=== PATIENT | male | born 1940 | race Caucasian/White ===

== ENCOUNTER → 2016-09-11 | Outpatient (CLI) | payer MEDICARE ==
[~2016-09-11] MED LIST: REGADENOSON INJ 0.4 MG/5 ML DISP.SYRIN IV ONE
--- NOTE | 2016-09-11 19:12 | DRAGON STRESS TEST REPORT ---
Intravenous Lexiscan Cardiolite stress test using single photon emmision computerized tomography. Date of procedure: 09/11/2016 Ordering Provider: Dr. MR. Staci Rust. Primary Care Provider: Miss Tea Gu Indication: Coronary Artery Disease.. Coronary risk factors: Age, diabetes mellitus, hypertension, and dyslipidemia. Resting EKG: Sinus Rhythm. Right bundle branch block pattern. Stress EKG: No changes of ischemia. The patient had no chest pain or discomfort, and there were no arrhythmias seen. Reason for termination: Protocol. Conclusions: Normal EKG and hemodynamic response to IV Lexiscan. Nuclear data: At rest the patient was given 14.87 millicuries of technetium 99m sestamibi injected intravenously. As per protocol rest non gated SPECT images were obtained. Subsequently the patient was given intravenous Lexiscan at a dose of 0.4 mg in 5 mL intravenously, followed by flush with normal saline. Subsequently the stress dose of 44.5 millicuries of technetium 99m sestamibi was injected intravenously. As per protocol stress gated images were obtained. Nuclear interpretation: Review of images showed that there is a mild perfusion defect in the stress images which normalizes in the rest images. This inferior wall has normal motion contraction and thickening by gated study. There is a small area of perfusion defect in both the stress and the rest images involving a small portion of the distal postero-lateral wall. This small area has decreased motion contraction and thickening. The rest of the segments of the myocardium had normal perfusion at rest, and normal perfusion post stress with IV Lexiscan. The rest of the segments of the myocardium had normal motion, contraction, and thickening by gated study. T. I D. ratio was read as abnormal at 1.25 . But this is usually not reliable and visually the T I D ratio is within normal limits Computer read rest, and stress left ventricular ejection fraction were 63 %, and 55 %, respectively. Visually both the stress and rest ejection fractions were normal, and greater than 60 %. Conclusion: 1. There is probably mild scintigraphic evidence of Lexiscan induced myocardial ischemia involving the inferior wall. 2. There is scintigraphic evidence of myocardial infarction/scar involving a small area of the distal posterior lateral wall. Recommendations: 1.Correlate clinically. 2.aggressive medical treatment of coronary artery disease, and if the patient develops anginal symptoms] typical or atypical] then would send the patient for cardiac catheterization . 3.Aggressive risk factor modification, and treating the underlying co- morbidities. CANDYD
== END ==
LOC: RAD 07:15
PROVIDERS: ATTEND Specialist
DX: I25.10 Atherosclerotic heart disease of native coronary artery without angina pectoris (principal); I10 Essential (primary) hypertension; E11.9 Type 2 diabetes mellitus without complications; E78.5 Hyperlipidemia, unspecified
CPT/HCPCS: 93017; 78452; A9500; J2785; Q9969

== ENCOUNTER → 2016-09-16 | Outpatient (CLI) | payer MEDICARE ==
[2016-09-16 10:38] LABS: APPEARANCE,URINE CLEAR; BILIRUBIN,URINE NEGATIVE (NEGATIVE); GLUCOSE, URINE NEGATIVE (NEGATIVE); KETONES,URINE TRACE mg/dL (NEGATIVE); LEUKOCYTE ESTERASE,URINE NEGATIVE (NEGATIVE); NITRITE,URINE NEGATIVE (NEGATIVE); PROTEIN,URINE NEGATIVE (NEGATIVE); URINE SPECIFIC GRAVITY 1.023
[2016-09-16 10:44] LABS: HEMATOCRIT 41.2 % (37.9-51.0); HEMOGLOBIN 13.5 g/dL (13.5-17.0); HGB HCT DIFFERENCE -0.7; MEAN CORPUSCULAR HEMOGLOBIN 28.9 pg (27.0-33.4); MEAN CORPUSCULAR HGB CONC 32.6 g/dL (32.0-36.0); MEAN CORPUSCULAR VOLUME 89 fl (80-97); RED BLOOD COUNT 4.65 10^6/uL (4.35-5.55); RED CELL DISTRIBUTION WIDTH 12.9 % (11.5-14.0); WHITE BLOOD COUNT 5.6 10^3/uL (4.0-10.5)
[2016-09-16 11:14] LABS: ANION GAP 13 (5-19); BLOOD UREA NITROGEN 23 mg/dL (7-20); CALCIUM 9.4 mg/dL (8.4-10.2); CARBON DIOXIDE 27 mmol/L (22-30); CHLORIDE 101 mmol/L (98-107); CREATININE RESULT 1.28 mg/dL (0.52-1.25); GLUCOSE 114 mg/dL (75-110); POTASSIUM 4.4 mmol/L (3.6-5.0); SODIUM 140.8 mmol/L (137-145)
== END ==
LOC: OD 09:54
PROVIDERS: ATTEND Internal Medicine Nephrology
DX: I12.9 Hypertensive chronic kidney disease with stage 1 through stage 4 chronic kidney disease, or unspecified chronic kidney disease (principal); N18.2 Chronic kidney disease, stage 2 (mild); E87.5 Hyperkalemia; E11.9 Type 2 diabetes mellitus without complications
CPT/HCPCS: 36415; 80048; 81001; 85027

== ENCOUNTER → 2017-03-17 | Outpatient (CLI) | payer MEDICARE ==
[2017-03-17 08:22] LABS: APPEARANCE,URINE CLEAR; BILIRUBIN,URINE NEGATIVE (NEGATIVE); GLUCOSE, URINE NEGATIVE (NEGATIVE); KETONES,URINE NEGATIVE (NEGATIVE); LEUKOCYTE ESTERASE,URINE NEGATIVE (NEGATIVE); NITRITE,URINE NEGATIVE (NEGATIVE); PROTEIN,URINE NEGATIVE (NEGATIVE); URINE SPECIFIC GRAVITY 1.018; UROBILINOGEN,URINE NEGATIVE mg/dL (<2.0)
[2017-03-17 08:37] LABS: HEMATOCRIT 39.8 % (37.9-51.0); HEMOGLOBIN 13.5 g/dL (13.5-17.0); HGB HCT DIFFERENCE 0.7; MEAN CORPUSCULAR HEMOGLOBIN 30.2 pg (27.0-33.4); MEAN CORPUSCULAR HGB CONC 33.9 g/dL (32.0-36.0); MEAN CORPUSCULAR VOLUME 89 fl (80-97); RED BLOOD COUNT 4.48 10^6/uL (4.35-5.55); RED CELL DISTRIBUTION WIDTH 13.5 % (11.5-14.0); WHITE BLOOD COUNT 7.2 10^3/uL (4.0-10.5)
[2017-03-17 09:15] LABS: ANION GAP 12 (5-19); BLOOD UREA NITROGEN 26 mg/dL (7-20); CALCIUM 9.4 mg/dL (8.4-10.2); CARBON DIOXIDE 25 mmol/L (22-30); CHLORIDE 105 mmol/L (98-107); CREATININE RESULT 1.38 mg/dL (0.52-1.25); GLUCOSE 159 mg/dL (75-110); POTASSIUM 4.7 mmol/L (3.6-5.0); SODIUM 141.6 mmol/L (137-145)
== END ==
LOC: OD 07:48
PROVIDERS: ATTEND Internal Medicine Nephrology
DX: I12.9 Hypertensive chronic kidney disease with stage 1 through stage 4 chronic kidney disease, or unspecified chronic kidney disease (principal); N18.2 Chronic kidney disease, stage 2 (mild); E11.9 Type 2 diabetes mellitus without complications
CPT/HCPCS: 36415; 80048; 81001; 85027

== ENCOUNTER → 2017-09-18 | Outpatient (CLI) | payer MEDICARE ==
[2017-09-18 08:38] LABS: HEMATOCRIT 41.6 % (37.9-51.0); HEMOGLOBIN 14.1 g/dL (13.5-17.0); MEAN CORPUSCULAR HEMOGLOBIN 29.4 pg (27.0-33.4); MEAN CORPUSCULAR HGB CONC 33.9 g/dL (32.0-36.0); MEAN CORPUSCULAR VOLUME 87 fl (80-97); PLATELET COUNT 158 10^3/uL (150-450); RED CELL DISTRIBUTION WIDTH 13.5 % (11.5-14.0); WHITE BLOOD COUNT 7.7 10^3/uL (4.0-10.5)
[2017-09-18 08:49] LABS: APPEARANCE,URINE SLIGHTLY-CLOUDY; BILIRUBIN,URINE NEGATIVE (NEGATIVE); COLOR,URINE AMBER; GLUCOSE, URINE NEGATIVE (NEGATIVE); KETONES,URINE NEGATIVE (NEGATIVE); LEUKOCYTE ESTERASE,URINE NEGATIVE (NEGATIVE); NITRITE,URINE NEGATIVE (NEGATIVE); PROTEIN,URINE 30 mg/dL (NEGATIVE); URINE SPECIFIC GRAVITY 1.027
[2017-09-18 09:01] LABS: ANION GAP 9 (5-19); BLOOD UREA NITROGEN 31 mg/dL (7-20); CALCIUM 9.7 mg/dL (8.4-10.2); CARBON DIOXIDE 30 mmol/L (22-30); CHLORIDE 104 mmol/L (98-107); GLUCOSE 180 mg/dL (75-110); POTASSIUM 4.5 mmol/L (3.6-5.0); SODIUM 143.1 mmol/L (137-145)
[2017-09-20 10:37] LABS: CREATININE URINE 338.5 mg/dL (Not Estab.); MICROALBUMIN URINE 135.7 ug/mL (Not Estab.)
== END ==
LOC: OD 08:14
PROVIDERS: ATTEND Internal Medicine Nephrology
DX: I12.9 Hypertensive chronic kidney disease with stage 1 through stage 4 chronic kidney disease, or unspecified chronic kidney disease (principal); N18.2 Chronic kidney disease, stage 2 (mild); E11.9 Type 2 diabetes mellitus without complications
CPT/HCPCS: 36415; 80048; 81001; 82043; 82570; 85027

== ENCOUNTER → 2018-04-02 | Outpatient (CLI) | payer MEDICARE ==
[2018-04-02 09:54] LABS: HEMATOCRIT 38.5 % (37.9-51.0); HEMOGLOBIN 13.2 g/dL (13.5-17.0); MEAN CORPUSCULAR HEMOGLOBIN 30.2 pg (27.0-33.4); MEAN CORPUSCULAR HGB CONC 34.2 g/dL (32.0-36.0); MEAN CORPUSCULAR VOLUME 89 fl (80-97); PLATELET COUNT 145 10^3/uL (150-450); RED BLOOD COUNT 4.35 10^6/uL (4.35-5.55); RED CELL DISTRIBUTION WIDTH 13.4 % (11.5-14.0); WHITE BLOOD COUNT 7.9 10^3/uL (4.0-10.5)
[2018-04-02 10:10] LABS: APPEARANCE,URINE SLIGHTLY-CLOUDY; BILIRUBIN,URINE NEGATIVE (NEGATIVE); GLUCOSE, URINE NEGATIVE (NEGATIVE); KETONES,URINE NEGATIVE (NEGATIVE); LEUKOCYTE ESTERASE,URINE NEGATIVE (NEGATIVE); NITRITE,URINE NEGATIVE (NEGATIVE); PROTEIN,URINE 30 mg/dL (NEGATIVE); URINE SPECIFIC GRAVITY 1.029
[2018-04-02 10:11] LABS: COLOR,URINE YELLOW
[2018-04-02 10:14] LABS: ANION GAP 12 (5-19); BLOOD UREA NITROGEN 22 mg/dL (7-20); CARBON DIOXIDE 27 mmol/L (22-30); CHLORIDE 106 mmol/L (98-107); GLUCOSE 148 mg/dL (75-110); SODIUM 144.9 mmol/L (137-145)
== END ==
LOC: OD 09:15
PROVIDERS: ATTEND Physician Assistant Medical
DX: E11.22 Type 2 diabetes mellitus with diabetic chronic kidney disease (principal); I12.9 Hypertensive chronic kidney disease with stage 1 through stage 4 chronic kidney disease, or unspecified chronic kidney disease; N18.2 Chronic kidney disease, stage 2 (mild)
CPT/HCPCS: 36415; 80048; 81001; 85027

== ENCOUNTER → 2018-10-01 | Outpatient (CLI) | payer MEDICARE ==
[2018-10-01 09:41] LABS: HEMATOCRIT 43.5 % (37.9-51.0); MEAN CORPUSCULAR HEMOGLOBIN 30.4 pg (27.0-33.4); MEAN CORPUSCULAR HGB CONC 34.3 g/dL (32.0-36.0); MEAN CORPUSCULAR VOLUME 89 fl (80-97); PLATELET COUNT 163 10^3/uL (150-450); RED BLOOD COUNT 4.92 10^6/uL (4.35-5.55); RED CELL DISTRIBUTION WIDTH 13.2 % (11.5-14.0); WHITE BLOOD COUNT 7.5 10^3/uL (4.0-10.5)
[2018-10-01 09:58] LABS: APPEARANCE,URINE CLEAR; BILIRUBIN,URINE NEGATIVE (NEGATIVE); COLOR,URINE YELLOW; GLUCOSE, URINE NEGATIVE (NEGATIVE); KETONES,URINE NEGATIVE (NEGATIVE); LEUKOCYTE ESTERASE,URINE NEGATIVE (NEGATIVE); NITRITE,URINE NEGATIVE (NEGATIVE); PROTEIN,URINE NEGATIVE (NEGATIVE); URINE SPECIFIC GRAVITY 1.016
[2018-10-01 10:09] LABS: ANION GAP 10 (5-19); BLOOD UREA NITROGEN 22 mg/dL (7-20); CALCIUM 9.4 mg/dL (8.4-10.2); CARBON DIOXIDE 29 mmol/L (22-30); CHLORIDE 103 mmol/L (98-107); GLUCOSE 170 mg/dL (75-110); POTASSIUM 4.4 mmol/L (3.6-5.0); SODIUM 141.6 mmol/L (137-145)
== END ==
LOC: OD 09:07
PROVIDERS: ATTEND Physician Assistant Medical
DX: I12.9 Hypertensive chronic kidney disease with stage 1 through stage 4 chronic kidney disease, or unspecified chronic kidney disease (principal); N18.3 Chronic kidney disease, stage 3 (moderate); E11.22 Type 2 diabetes mellitus with diabetic chronic kidney disease; R80.9 Proteinuria, unspecified
CPT/HCPCS: 36415; 80048; 81001; 85027

== ENCOUNTER → 2019-04-13 | Outpatient (CLI) | payer MEDICARE ==
[2019-04-13 10:32] LABS: HEMATOCRIT 39.5 % (37.9-51.0); HEMOGLOBIN 13.5 g/dL (13.5-17.0); MEAN CORPUSCULAR HEMOGLOBIN 30.4 pg (27.0-33.4); MEAN CORPUSCULAR HGB CONC 34.1 g/dL (32.0-36.0); MEAN CORPUSCULAR VOLUME 89 fl (80-97); PLATELET COUNT 164 10^3/uL (150-450); RED BLOOD COUNT 4.43 10^6/uL (4.35-5.55); RED CELL DISTRIBUTION WIDTH 13.2 % (11.5-14.0); WHITE BLOOD COUNT 7.7 10^3/uL (4.0-10.5)
[2019-04-13 10:51] LABS: APPEARANCE,URINE SLIGHTLY-CLOUDY; BILIRUBIN,URINE NEGATIVE (NEGATIVE); COLOR,URINE AMBER; GLUCOSE, URINE NEGATIVE (NEGATIVE); KETONES,URINE NEGATIVE (NEGATIVE); LEUKOCYTE ESTERASE,URINE NEGATIVE (NEGATIVE); NITRITE,URINE NEGATIVE (NEGATIVE); PROTEIN,URINE 30 mg/dL (NEGATIVE); URINE SPECIFIC GRAVITY 1.025
[2019-04-13 11:00] LABS: ANION GAP 10 (5-19); BLOOD UREA NITROGEN 28 mg/dL (7-20); CALCIUM 8.8 mg/dL (8.4-10.2); CARBON DIOXIDE 27 mmol/L (22-30); CHLORIDE 102 mmol/L (98-107); GLUCOSE 168 mg/dL (75-110); POTASSIUM 4.2 mmol/L (3.6-5.0)
== END ==
LOC: OD 09:40
PROVIDERS: ATTEND Physician Assistant Medical
DX: I12.9 Hypertensive chronic kidney disease with stage 1 through stage 4 chronic kidney disease, or unspecified chronic kidney disease (principal); N18.3 Chronic kidney disease, stage 3 (moderate); E11.9 Type 2 diabetes mellitus without complications
CPT/HCPCS: 36415; 80048; 81001; 85027

== ENCOUNTER → 2019-10-29 | Outpatient (CLI) | payer MEDICARE ==
[2019-10-29 10:59] LABS: ABSOLUTE BASOPHILS # (AUTO) 0.1 10^3/uL (0.0-0.2); ABSOLUTE EOSINOPHILS # (AUTO) 0.6 10^3/uL (0.0-0.6); ABSOLUTE LYMPHOCYTES (AUTO) 1.8 10^3/uL (0.5-4.7); ABSOLUTE MONOCYTES (AUTO) 0.6 10^3/uL (0.1-1.4); ABSOLUTE NEUT (AUTO) 3.9 10^3/uL (1.7-8.2); EOSINOPHILS % (AUTO) 8.2 % (0-6); HEMATOCRIT 40.4 % (37.9-51.0); HEMOGLOBIN 14.1 g/dL (13.5-17.0); LYMPHOCYTES % (AUTO) 26.2 % (13-45); MEAN CORPUSCULAR HEMOGLOBIN 31.4 pg (27.0-33.4); MEAN CORPUSCULAR HGB CONC 34.8 g/dL (32.0-36.0); MEAN CORPUSCULAR VOLUME 90 fl (80-97); MONOCYTES % (AUTO) 8.6 % (3-13); PLATELET COUNT 152 10^3/uL (150-450); RED BLOOD COUNT 4.48 10^6/uL (4.35-5.55); RED CELL DISTRIBUTION WIDTH 13.2 % (11.5-14.0); TOTAL CELLS COUNTED % (AUTO) 100 %; WHITE BLOOD COUNT 6.9 10^3/uL (4.0-10.5)
[2019-10-29 11:02] LABS: APPEARANCE,URINE CLEAR; BILIRUBIN,URINE NEGATIVE (NEGATIVE); COLOR,URINE YELLOW; GLUCOSE, URINE NEGATIVE (NEGATIVE); KETONES,URINE NEGATIVE (NEGATIVE); LEUKOCYTE ESTERASE,URINE NEGATIVE (NEGATIVE); NITRITE,URINE NEGATIVE (NEGATIVE); PROTEIN,URINE NEGATIVE (NEGATIVE)
[2019-10-29 11:19] LABS: ANION GAP 9 (5-19); BLOOD UREA NITROGEN 25 mg/dL (7-20); CALCIUM 8.9 mg/dL (8.4-10.2); CARBON DIOXIDE 30 mmol/L (22-30); CHLORIDE 102 mmol/L (98-107); GLUCOSE 219 mg/dL (75-110); POTASSIUM 4.6 mmol/L (3.6-5.0)
[2019-10-29 11:20] LABS: UR PRO/CREAT RATIO RESULT 0.1 mg/mg (0.0-0.2); URINE CREATININE 138.4 mg/dL (22-328); URINE PROTEIN 15.9 mg/dL (<12)
== END ==
LOC: OD 09:45
PROVIDERS: ATTEND Physician Assistant Medical
DX: I12.9 Hypertensive chronic kidney disease with stage 1 through stage 4 chronic kidney disease, or unspecified chronic kidney disease (principal); N18.3 Chronic kidney disease, stage 3 (moderate); E11.22 Type 2 diabetes mellitus with diabetic chronic kidney disease; R80.9 Proteinuria, unspecified; R60.9 Edema, unspecified
CPT/HCPCS: 36415; 80048; 81001; 82570; 84156; 85025

== ENCOUNTER → 2020-02-01 | Outpatient (CLI) | payer MEDICARE ==
[2020-02-01 13:00] LABS: ANION GAP 6 (5-19); BLOOD UREA NITROGEN 27 mg/dL (7-20); CALCIUM 8.7 mg/dL (8.4-10.2); CARBON DIOXIDE 25 mmol/L (22-30); CHLORIDE 105 mmol/L (98-107); GLUCOSE 221 mg/dL (75-110); POTASSIUM 4.5 mmol/L (3.6-5.0)
[2020-02-01 13:18] LABS: FREE T3 4.07 pg/mL (2.77-5.27); FREE T4 (FREE THYROXINE) 1.04 ng/dL (0.78-2.19)
[2020-02-01 13:31] LABS: THYROID STIMULATING HORMONE 4.15 uIU/mL (0.47-4.68)
== END ==
LOC: OD 12:12
PROVIDERS: ATTEND Specialist
DX: I42.9 Cardiomyopathy, unspecified (principal); F06.4 Anxiety disorder due to known physiological condition; I25.10 Atherosclerotic heart disease of native coronary artery without angina pectoris; I34.0 Nonrheumatic mitral (valve) insufficiency; I45.10 Unspecified right bundle-branch block; I49.2 Junctional premature depolarization; I49.3 Ventricular premature depolarization; I12.9 Hypertensive chronic kidney disease with stage 1 through stage 4 chronic kidney disease, or unspecified chronic kidney disease; N18.3 Chronic kidney disease, stage 3 (moderate); Z13.29 Encounter for screening for other suspected endocrine disorder; Z95.1 Presence of aortocoronary bypass graft; Z95.2 Presence of prosthetic heart valve
CPT/HCPCS: 36415; 80048; 84439; 84443; 84481

== ENCOUNTER → 2020-02-10 | Outpatient (CLI) | payer MEDICARE ==
[2020-02-10 15:01] LABS: ABSOLUTE BASOPHILS # (AUTO) 0.1 10^3/uL (0.0-0.2); ABSOLUTE EOSINOPHILS # (AUTO) 0.3 10^3/uL (0.0-0.6); ABSOLUTE LYMPHOCYTES (AUTO) 1.5 10^3/uL (0.5-4.7); ABSOLUTE MONOCYTES (AUTO) 0.6 10^3/uL (0.1-1.4); ABSOLUTE NEUT (AUTO) 4.8 10^3/uL (1.7-8.2); BASOPHILS % (AUTO) 0.7 % (0-2); EOSINOPHILS % (AUTO) 4.3 % (0-6); HEMOGLOBIN 13.2 g/dL (13.5-17.0); LYMPHOCYTES % (AUTO) 20.3 % (13-45); MEAN CORPUSCULAR HGB CONC 34.8 g/dL (32.0-36.0); MEAN CORPUSCULAR VOLUME 89 fl (80-97); MONOCYTES % (AUTO) 8.8 % (3-13); PLATELET COUNT 151 10^3/uL (150-450); RED BLOOD COUNT 4.26 10^6/uL (4.35-5.55); RED CELL DISTRIBUTION WIDTH 12.9 % (11.5-14.0); SEGMENTED NEUTROPHILS % (AUTO) 65.9 % (42-78); TOTAL CELLS COUNTED % (AUTO) 100 %; WHITE BLOOD COUNT 7.4 10^3/uL (4.0-10.5)
[2020-02-10 15:05] LABS: INTERNATIONAL RATION (INR) 1.35; PARTIAL THROMBOPLASTIN TIME 27.1 SEC (23.5-35.8); PROTHROMBIN TIME 16.8 SEC (11.4-15.4)
== END ==
LOC: OD 13:34
PROVIDERS: ATTEND Specialist
DX: I42.9 Cardiomyopathy, unspecified (principal); I12.9 Hypertensive chronic kidney disease with stage 1 through stage 4 chronic kidney disease, or unspecified chronic kidney disease; N18.3 Chronic kidney disease, stage 3 (moderate); E08.22 Diabetes mellitus due to underlying condition with diabetic chronic kidney disease; E78.5 Hyperlipidemia, unspecified; I25.10 Atherosclerotic heart disease of native coronary artery without angina pectoris; I45.10 Unspecified right bundle-branch block; I34.0 Nonrheumatic mitral (valve) insufficiency; I48.91 Unspecified atrial fibrillation; I49.3 Ventricular premature depolarization; R01.1 Cardiac murmur, unspecified; Z95.1 Presence of aortocoronary bypass graft; Z95.2 Presence of prosthetic heart valve; Z79.899 Other long term (current) drug therapy
CPT/HCPCS: 36415; 85025; 85610; 85730

== ENCOUNTER 2020-06-16 08:52 | Inpatient (IN) | payer MEDICARE ==
[2020-06-16] MEDS ORDERED: DILTIAZEM HCL INJ 25 MG/5 ML VIAL IV ONE (09:38)
--- NOTE | 2020-06-16 09:44 | ER Document Report ---
ED General - General Chief Complaint: Palpitations Stated Complaint: PALPITATIONS Time Seen by Provider: 06/16/20 09:17 TRAVEL OUTSIDE OF THE [place] IN LAST 30 DAYS: No - HPI Notes: Patient is an 80-year-old male with a history of atrial fibrillation/flutter who presents to the emergency department for evaluation of elevated heart rate. He was actually getting clearance for hernia surgery. He was found to have a rapid heart rate. I obtained history primarily from the patient as well as from Dr. Rust, his screw remover. Patient has had some shortness of breath with exertion, feels a little bit more tired, but denies any sensation of palpitations. No chest pain or tightness. According to his screw remover, the patient has been on medications in the past and has had significant bradycardia as a result. Patient denies any pain or complaints at this time. - Related Data Allergies/Adverse Reactions: No Known Allergies Allergy (Verified 06/16/20 09:27) Home Medications: MatureMultivitamin, glipizide 10 mg daily, isosorbide mononitrate 60 mg daily, lisinopril/HCTZ 20/12.5 milligrams daily, will ALT 25 mg twice a day, Nitrostat 0.4 mg as needed, pravastatin 20 mg daily, PreserVision daily, tamsulosin 0.4 mg daily, warfarin as directed Past Medical History - General Information source: Patient - Social History Smoking Status: Former Smoker Chew tobacco use (# tins/day): No Frequency of alcohol use: None Drug Abuse: None Family History: Reviewed & Not Pertinent - Past Medical History Cardiac Medical History: Reports: Hx Coronary Artery Disease, Hx Hypercholesterolemia, Hx Hypertension - ON MEDS, Other - Valve replacement Pulmonary Medical History: Denies: Hx Asthma, Hx Bronchitis, Hx COPD, Hx Pneumonia Neurological Medical History: Denies: Hx Cerebrovascular Accident, Hx Seizures Endocrine Medical History: Reports: Hx Diabetes Mellitus Type 2 Musculoskeletal Medical History: Reports Hx Arthritis Past Surgical History: Reports: Hx Appendectomy, Hx Cardiac Surgery - valve replacement, Hx Coronary Artery Bypass Graft, Hx Orthopedic Surgery - Immunizations Hx Diphtheria, Pertussis, Tetanus Vaccination: No Review of Systems - Review of Systems Constitutional: No symptoms reported EENT: No symptoms reported Cardiovascular: See HPI Respiratory: See HPI Gastrointestinal: No symptoms reported Genitourinary: No symptoms reported Musculoskeletal: No symptoms reported Skin: No symptoms reported Neurological/Psychological: No symptoms reported -: Yes All other systems reviewed and negative Physical Exam - Vital signs Vitals: Resp Pulse Ox 30 H 99 06/16/20 09:17 06/16/20 09:17 - Notes Notes: Vital signs reviewed, please refer to chart. Head is normocephalic, atraumatic. Pupils equal round, reactive to light. Neck is supple without meningismus. Heart tachycardic with normal S1, S2. Lungs reveal diminished breath sounds in the bases. Abdomen is soft, nontender, normoactive bowel sounds throughout. Extremities without cyanosis, clubbing. Posterior calves are nontender. Peripheral pulses are equal. Skin is warm and dry. Patient is awake, alert, neurological exam is nonfocal. Course - Re-evaluation Re-evalutation: 06/16/20 09:46 Patient presents to the emergency department for evaluation. He I was notified of this patient's arrival by Dr. Rust, his screw remover. He states he is already spoken to the internal medicine physicians, states the patient will need admission for control of his heart rate. He recommends Cardizem in this patient. He states that in the past he has had significant bradycardia with medications, so decision was made to advance with only a 10 mg Cardizem bolus and titrate the drip as necessary. The patient denies any symptoms at this time. He is currently stable. He just had his thyroid checked in January and was found to be unremarkable. Basic blood work including INR was ordered. We will continue to monitor. 06/16/20 10:48 Patient was started on Cardizem and had a little in the way of response. I was reviewing his blood work and imaging. Chest x-ray is concerning for a possible mass with postobstructive pneumonia, effusion. I went back into evaluate the patient. He states he has only a very minimal cough, really denies that he has a julian cough. At this point I am concerned about the possibility of pulmonary embolus, mass, which could be contributing to his symptoms. I ordered blood cultures. I will order a CT angiogram of the chest. Patient was notified of this change. We will continue to monitor. 06/16/20 13:10 CT angiogram of the chest is performed. It shows a loculated effusion and findings consistent with a pneumonia. No mass, no PE noted. Despite being on 10 mg an hour of Cardizem, the patient's heart rate did not budge significantly, but his blood pressure remained borderline. His last pressure was 105/87. I discussed this with Dr. Rust. He asked that digoxin be administered. IV digoxin is ordered, will contact medicine for admission. 06/16/20 13:57 I spoke with Giovana Parks NP. She recommended I speak with Dr. Jenkins. I called him but he was unavailable at the time. I am notified by patient and his family the Dr. Jenkins did in fact see the patient. - Vital Signs Vital signs: Temp Pulse Resp BP Pulse Ox 136 H 25 H 122/86 H 96 06/16/20 09:21 06/16/20 10:25 06/16/20 10:25 06/16/20 10:25 - Laboratory Result Diagrams: 06/16/20 09:20 06/16/20 09:20 Laboratory results interpreted by me: 06/16/20 06/16/20 09:20 09:20 PT 37.0 H Chloride 108 H BUN 26 H Est GFR (MDRD) Non-Af 58 L Glucose 180 H Creatine Kinase 49 L - Diagnostic Test Radiology reviewed: Image reviewed Discharge - Discharge Clinical Impression: Loculated pleural effusion, Right lower lobe pneumonia, Atrial flutter with rapid ventricular response Condition: Stable Disposition: ADMITTED INPATIENT Admitting Provider: Gregory (Hospitalist) Unit Admitted: [facility]
--- NOTE | 2020-06-16 09:50 | RADIOLOGY REPORT (SQ) ---
EXAM DESCRIPTION: CHEST SINGLE VIEW IMAGES COMPLETED DATE/TIME: 06/16/2020 9:37 am REASON FOR STUDY: cp COMPARISON: Chest films 12/15/2015 EXAM PARAMETERS: NUMBER OF VIEWS: One view. TECHNIQUE: Single frontal radiographic view of the chest acquired. RADIATION DOSE: NA LIMITATIONS: None. FINDINGS: LUNGS AND PLEURA: Right lower lobe volume loss and consolidation fullness of the right hil um. Small right pleural effusion. Findings could represent pneumonia with parapneumonic effusion. Obstructive right hilar mass with postobstructive pneumonia could not be excluded. Consider CT chest with IV contrast for followup. Left lung well inflated. Few Concepcion lines at the left lung base, question fluid overload or congesti ve failure MEDIASTINUM AND HILAR STRUCTURES: No masses. Contour normal. HEART AND VASCULAR STRUCTURES: Moderate cardiomegaly. Old CABG. BONES: No acute findings. HARDWARE: None in the chest. OTHER: No other significant finding. IMPRESSION: Volume loss and consolidation right lower lobe with fullness of the right hilum and smal l right pleural effusion. Postobstructive pneumonia from right hilar mass may be present. Consider CT chest for followup. Few Concepcion lines at the left lung base, question interstitial edema or fluid overload. 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 TECHNICAL DOCUMENTATION: JOB ID: [id number] 2010 [employer]- All Rights Reserved Reading location - IP/workstation name: [email or web address]
[2020-06-16 09:53] LABS: ABSOLUTE BASOPHILS # (AUTO) 0.1 10^3/uL (0.0-0.2); ABSOLUTE EOSINOPHILS # (AUTO) 0.2 10^3/uL (0.0-0.6); ABSOLUTE LYMPHOCYTES (AUTO) 1.4 10^3/uL (0.5-4.7); ABSOLUTE MONOCYTES (AUTO) 0.6 10^3/uL (0.1-1.4); ABSOLUTE NEUT (AUTO) 5.2 10^3/uL (1.7-8.2); BASOPHILS % (AUTO) 0.8 % (0-2); EOSINOPHILS % (AUTO) 2.8 % (0-6); HEMATOCRIT 39.9 % (37.9-51.0); HEMOGLOBIN 13.8 g/dL (13.5-17.0); MEAN CORPUSCULAR HEMOGLOBIN 30.6 pg (27.0-33.4); MEAN CORPUSCULAR HGB CONC 34.4 g/dL (32.0-36.0); MEAN CORPUSCULAR VOLUME 89 fl (80-97); MONOCYTES % (AUTO) 8.4 % (3-13); PLATELET COUNT 167 10^3/uL (150-450); RED BLOOD COUNT 4.49 10^6/uL (4.35-5.55); RED CELL DISTRIBUTION WIDTH 13.8 % (11.5-14.0); TOTAL CELLS COUNTED % (AUTO) 100 %; WHITE BLOOD COUNT 7.5 10^3/uL (4.0-10.5)
[2020-06-16 10:06] LABS: INTERNATIONAL RATION (INR) 3.78
[2020-06-16] MEDS: DILTIAZEM HCL/D5W 125 MG/125 ML RTUINJ IV PRN ×2 (10:11→20:24)
[2020-06-16 10:20] LABS: ALBUMIN 4.2 g/dL (3.5-5.0); ALKALINE PHOSPHATASE 86 U/L (38-126); ANION GAP 12 (5-19); ASPARTATE AMINO TRANSFERASE 35 U/L (17-59); BILIRUBIN,DIRECT 0.4 mg/dL (0.0-0.4); BILIRUBIN,TOTAL 1.2 mg/dL (0.2-1.3); BLOOD UREA NITROGEN 26 mg/dL (7-20); CALCIUM 9.4 mg/dL (8.4-10.2); CARBON DIOXIDE 22 mmol/L (22-30); CHLORIDE 108 mmol/L (98-107); CREATINE KINASE 49 U/L (55-170); GLUCOSE 180 mg/dL (75-110); POTASSIUM 4.7 mmol/L (3.6-5.0); TOTAL PROTEIN 7.5 g/dL (6.3-8.2)
[2020-06-16 10:31] LABS: CREATINE KINASE MB 1.19 ng/mL (<4.55); TROPONIN I 0.015 ng/mL
--- NOTE | 2020-06-16 11:51 | RADIOLOGY REPORT (SQ) ---
EXAM DESCRIPTION: CTA CHEST IMAGES COMPLETED DATE/TIME: 06/16/2020 11:38 am REASON FOR STUDY: possible right lung mass, eval for PE COMPARISON: Chest x-ray done earlier the same day. TECHNIQUE: CT scan of the chest performed using helical scanning technique with dynamic intravenous contrast injection. Images reviewed with lung, soft tissue and bone windows. Reconstructed coronal and sagittal MPR images reviewed. Additional 3 dimensional post-processing performed to develop Maximal Intensity Projection images (DC P). All images stored on PACS. All CT scanners at this facility use dose modulation, iterative reconstruction, and/or weight based d osing when appropriate to reduce radiation dose to as low as reasonably achievable (ALARA). [facility]: Dose Right [facility]: CareDose [facility]: Dose Right [facility]: Teradose 4D [facility]: Cloud Takeoff CONTRAST TYPE AND DOSE: contrast/concentration: Isovue 350.00 mmol/ml; Total Contrast Delivered: 84. 0 ml; Total Saline Delivered: 65.0 ml Contrast bolus optimized for the pulmonary arteries. Not diagnostic for the aorta. RENAL FUNCTION: BUN 26, creatinine 1.21 RADIATION DOSE: CT Rad equipment meets quality standard of care and radiation dose reduction techniq ues were employed. CTDIvol: 24.8 - 28.1 mGy. DLP: 1083 mGy-cm. . LIMITATIONS: None. FINDINGS: LUNGS AND PLEURA: Moderate to large right-sided pleural effusion some of which is loculate d superiorly. There is layering effusion as well. There is right lower lobe atelectasis or pneumoni a. There is a small left effusion and minimal left basilar atelectasis. AORTA AND GREAT VESSELS: No aneurysm. Contrast bolus not optimized for the aorta. HEART: No pericardial effusion. Cardiomegaly. No significant coronary artery calcifications. PULMONARY ARTERIES: No emboli visualized in the main pulmonary arteries or the segmental branches. HILAR AND MEDIASTINAL STRUCTURES: Small mediastinal nodes most likely reactive. HARDWARE: None in the chest. UPPER ABDOMEN: No significant findings. Limited exam. THYROID AND OTHER SOFT TISSUES: Left lobe of thyroid gland is enlarged. No focal nodules. This exte nds substernally. BONES: No acute or significant finding. 3D MIPS: Confirm above findings. OTHER: No other significant finding. IMPRESSION: 1. Enlarged left lobe of the thyroid gland which extends substernally. 2. Moderate to large right-sided pleural effusions some a which is loculated superiorly. 3. Right lower lobe atelectasis or pneumonia. 4. Cardiomegaly. 5. No pulmonary emboli. COMMENT: Quality ID # [id number]: Final reports with documentation of one or more dose reduction techniques (e.g., Automated exposure control, adjustment of the mA and/or kV according to patient size, use of iterative reconstruction technique) TECHNICAL DOCUMENTATION: JOB ID: [id number] 2010 [employer]- All Rights Reserved Reading location - IP/workstation name: [email or web address]
[2020-06-16] MEDS ORDERED: CEFTRIAXONE 1 GM/D5W RTU 1 GM/50 ML RTUPB IV ONE (12:52)
[2020-06-16] MEDS ORDERED: AZITHROMYCIN INJ 500 MG VIAL IV ONE (12:53)
[2020-06-16] MEDS ORDERED: DIGOXIN INJ 0.5 MG/2 ML AMPULE IV ONE (13:09)
[2020-06-16] MEDS ORDERED: ONDANSETRON HCL INJ/PF 4 MG/2 ML SDV IV PRN (14:05)
[2020-06-16] MEDS ORDERED: DEXTROSE 50%-WATER 25 GM/50 ML DISP.SYRIN IV PRN ×2 (14:14)
[2020-06-16] MEDS ORDERED: GLUCAGON,HUMAN RECOMB 1 MG INJ IM PRN (14:14)
[2020-06-16] MEDS ORDERED: DEXTROSE 40% GEL 15 GM TUBE PO PRN ×2 (14:14)
[2020-06-16] MEDS ORDERED: CEFTRIAXONE INJ 1000 MG VIAL IV SCH (14:15)
[2020-06-16] MEDS ORDERED: IPRATROPIUM/ALBUTEROL 0.5-2.5 MG/3 ML AMPUL NEB PRN (14:33)
--- NOTE | 2020-06-16 14:45 | PDOC H&P ---
History of Present Illness Admission Date/PCP: OZ DAVIDSON PA-C Patient complains of: Came into the emergency room with complaints of shortness of breath. 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 Also to the cough with a greenish sputum. He denies any fevers. Denies any nausea vomiting diarrhea or abdominal pain. Work-up in the ER shows A. fib with RVR was started on Cardizem drip then was given digoxin. CT of the chest indicate you have right-sided pleural effusion moderate-sized pleural effusion with parapneumonic effusion. Start IV antibiotic therapy. Medical consult was called for admission. INR in the ER is 3.74. Past Medical History Cardiac Medical History: Reports: Coronary Artery Disease, Hyperlipidema, Hypertension - ON MEDS, Other - Valve replacement Pulmonary Medical History: Denies: Asthma, Bronchitis, Chronic Obstructive Pulmonary Disease (COPD), Pneumonia Neurological Medical History: Denies: Seizures Endocrine Medical History: Reports: Diabetes Mellitus Type 2 Musculoskeltal Medical History: Reports: Arthritis Hematology: Denies: Anemia Past Surgical History Past Surgical History: Reports: Appendectomy, Coronary Artery Bypass Graft, Orthopedic Surgery Social History Information Source: Patient Lives with: Family Smoking Status: Former Smoker Electronic Cigarette use?: No Hx Recreational Drug Use: No - Advance Directive Resuscitation Status: Full Code Family History Family History: Reviewed & Not Pertinent Parental Family History Reviewed: Yes - Family history of diabetes mellitus Children Family History Reviewed: Yes Sibling(s) Family History Reviewed.: Yes Medication/Allergy Home Medications: Aspirin [Aspirin 81 mg Chewable Tablet] 81 mg PO DAILY 07/06/14 Glipizide [Glipizide Xl] 2.5 mg PO DAILY 07/06/14 Lisinopril/Hydrochlorothiazide [Lisinopril-Hctz 20-12.5 mg Tab] 1 each PO DAILY 07/06/14 Metformin HCl [Glucophage 500 mg Tablet] 500 mg PO BIDACBS 07/06/14 Nifedipine [Nifedipine ER] 60 mg PO DAILY 07/06/14 Simvastatin 40 mg PO DAILY 07/06/14 Azithromycin [Zithromax Tri-Fred] 500 mg PO DAILY #1 pkg 10/06/14 Cyclobenzaprine HCl [Flexeril 10 mg Tablet] 10 mg PO BID PRN #15 tablet 12/15/15 Allergies/Adverse Reactions: No Known Allergies Allergy (Verified 06/16/20 09:27) Review of Systems Constitutional: PRESENT: fatigue, night sweats, weakness. ABSENT: fever(s), headache(s) Eyes: ABSENT: visual disturbances Ears: ABSENT: hearing changes Nose, Mouth, and Throat: ABSENT: sore throat Respiratory: PRESENT: cough, dyspnea, sputum Gastrointestinal: ABSENT: abdominal pain Genitourinary: ABSENT: dysuria, hematuria Musculoskeletal: ABSENT: joint swelling Integumentary: ABSENT: rash, wounds Neurological: ABSENT: abnormal gait, abnormal speech, confusion, dizziness, focal weakness, syncope Psychiatric: ABSENT: anxiety, depression, homidical ideation, suicidal ideation Endocrine: ABSENT: cold intolerance, heat intolerance, polydipsia, polyuria Physical Exam Vital Signs: Temp Pulse Resp BP Pulse Ox 136 H 25 H 122/86 H 96 06/16/20 09:21 06/16/20 10:25 06/16/20 10:25 06/16/20 10:25 Intake & Output 06/15/20 06/16/20 06/17/20 06:59 06:59 06:59 Intake Total 51 Balance 51 Weight 99.337 kg General appearance: PRESENT: no acute distress, well-developed Head exam: PRESENT: atraumatic Eye exam: PRESENT: PERRLA Mouth exam: PRESENT: moist, tongue midline Teeth exam: PRESENT: poor dentation Neck exam: ABSENT: carotid bruit, JVD, lymphadenopathy, thyromegaly Respiratory exam: PRESENT: decreased breath sounds, other - Decreased air entry in the right base. Cardiovascular exam: PRESENT: irregular rhythm, systolic murmur, tachycardia GI/Abdominal exam: PRESENT: normal bowel sounds, soft. ABSENT: distended, guarding, mass, organolmegaly, rebound, tenderness Rectal exam: PRESENT: deferred Extremities exam: PRESENT: full ROM, +1 edema. ABSENT: calf tenderness, clubbing, pedal edema Neurological exam: PRESENT: alert, awake, oriented to person, oriented to place, oriented to time, oriented to situation, CN II-XII grossly intact. ABSENT: motor sensory deficit Psychiatric exam: PRESENT: appropriate affect, normal mood. ABSENT: homicidal ideation, suicidal ideation Results Laboratory Results: 06/16/20 09:20 06/16/20 09:20 06/16/20 06/16/20 09:20 09:20 WBC 7.5 RBC 4.49 Hgb 13.8 Hct 39.9 MCV 89 MCH 30.6 MCHC 34.4 RDW 13.8 Plt Count 167 Seg Neutrophils % 69.0 Sodium 142.3 Potassium 4.7 Chloride 108 H Carbon Dioxide 22 Anion Gap 12 BUN 26 H Creatinine 1.21 Est GFR ( Amer) > 60 Glucose 180 H Calcium 9.4 Total Bilirubin 1.2 AST 35 Alkaline Phosphatase 86 Total Protein 7.5 Albumin 4.2 06/16/20 06/16/20 06/16/20 09:20 09:20 12:07 Creatine Kinase 49 L CK-MB (CK-2) 1.19 Troponin I 0.015 0.015 Impressions: Chest X-Ray 06/16/20 09:15 IMPRESSION: Volume loss and consolidation right lower lobe with fullness of the right hilum and small right pleural effusion. Postobstructive pneumonia from right hilar mass may be present. Consider CT chest for followup. Few Concepcion lines at the left lung base, question interstitial edema or fluid overload. 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 Chest/Abdomen CTA 06/16/20 10:44 IMPRESSION: 1. Enlarged left lobe of the thyroid gland which extends substernally. 2. Moderate to large right-sided pleural effusions some a which is loculated superiorly. 3. Right lower lobe atelectasis or pneumonia. 4. Cardiomegaly. 5. No pulmonary emboli. Assessment and Plan - Diagnosis (1) Atrial flutter with rapid ventricular response Is this a current diagnosis for this admission?: Yes Plan: 06/16/2020-patient admitted for A. fib with RVR. Cardiology consult was requested. Patient was started on Cardizem drip and also given loading dose of digoxin. To do the serial troponins. RS 3.74 to hold Coumadin at this time. GI prophylaxis initiated. Restarted on metoprolol 25 mg p.o. twice daily. (2) Right lower lobe pneumonia Is this a current diagnosis for this admission?: Yes Plan: 06/16/2020-patient has right lower lobe pneumonia. Blood cultures requested patient start on IV Rocephin and Zithromax. Patient may need right-sided thoracentesis diagnostic thoracentesis. To continue IV Rocephin and Zithromax at this time. (3) Loculated pleural effusion Is this a current diagnosis for this admission?: Yes Plan: 06/16/2020-patient came in with complaints of shortness of breath CT scan shows loculated right-sided pleural effusion. Started on IV antibiotic therapy. Patient may need a diagnostic thoracentesis on Friday. (4) Mitral valve replaced Is this a current diagnosis for this admission?: No Plan: 06/16/2020-patient has history of wall replacement with pig valve. Patient is on Coumadin for atrial fibrillation. INR 3.74. To closely monitor the PT/INR on daily basis. (5) HTN (hypertension) Is this a current diagnosis for this admission?: No Plan: 06/16/2020-patient has history of chronic essential hypertension taking Lasix, lisinopril/hydrochlorothiazide at home. Plan is to continue the blood pressure medications during the hospital stay. His blood pressure in the ER is 122/86. (6) Diabetes Qualifiers: Diabetes mellitus type: type 2 Is this a current diagnosis for this admission?: Yes Plan: 06/16/2020-patient has history of type 2 diabetes mellitus. Latest blood sugar is 180. To hold metformin and to continue glipizide. Compliance with medications advised. - Time Anticipated Discharge Disposition: Home, Self Care Anticipated Discharge Timeframe: within 72 hours
--- NOTE | 2020-06-16 16:10 | EKG REPORT ---
SEVERITY:- ABNORMAL ECG - ATRIAL FIBRILLATION WITH RVR RBBB AND LPFB : Confirmed by: Abundio Miles MD 16-Jun-2020 16:09:48
[2020-06-16] MEDS ORDERED: METOPROLOL TARTRATE 100 MG TABLET PO SCH ×2 (18:00)
[2020-06-16] MEDS: METOPROLOL TARTRATE 25 MG TABLET PO SCH (18:06)
--- NOTE | 2020-06-16 18:53 | PDOC CONSULTATION ---
Consultation-Blank Consultation: CARDIOLOGY CONSULTATION by Dr. Staci Cabrera on 06/16/2020. Patient seen at 3:45 PM. 60 minutes spent with patient more than 60% of time spent in direct patient care CONSULT REQUESTING PHYSICIAN: Dr. Jenkins. REASON FOR CONSULTATION: Atrial fibrillation with rapid ventricular response. HISTORY OF PRESENT ILLNESS: Patient is a 80-year-old male with known history of hypertension, history of coronary artery disease, history of coronary bypass graft surgery and history of porcine mitral valve replacement in the past was recently seen in the seen in the office about 2 months ago for preoperative cardiac risk assessment. At that time the patient was found to be in new onset atrial fibrillation/flutter with fast ventricular response. The patient was asymptomatic for that. Is subsequently had a work-up in the office which included an echocardiogram which showed that the LV ejection fraction was low normal at 55%. Due to financial restraints he was placed on Coumadin. The stress test did not show any reversible ischemia but there was evidence of prior scar. The patient today came for preop assessment for his hernia surgery [right inguinal hernia surgery] he was found to be in atrial fibrillation with rapid rapid ventricular response. On further questioning the patient did admit to shortness of breath. Although he still denies palpitations. He stated that about a week or 2 weeks ago he had a cold with symptoms of cough productive of greenish-yellow sputum. There is no chest pain or discomfort. The patient has not had any anginal symptoms. There is no history of TIA CVA. At present the heart rate is still fast on with the patient on 10 mg/h infusion of Cardizem. The patient has been given digoxin 0.25 mg IV push x1 and subsequently will also see if we can increase the Cardizem to 15 mg/h. Past Medical History Cardiac Medical History: Reports: Coronary Artery Disease, Hyperlipidema, Hypertension - ON MEDS, Other - Valve replacement. He had a history of coronary bypass graft surgery in the past and had a saphenous vein graft to the obtuse marginal branch, a saphenous vein graft to the right coronary artery, saphenous vein graft to the diagonal, and a ROSS to the LAD. In 2014 the patient had a cardiac catheterization wearing only the ROSS to the LAD was patent. Subsequently he had a coronary CTA to be sure that saphenous vein grafts were occluded. The CTA did show that all the saphenous vein grafts were occluded with only the ROSS being patent. His mitral valve replacement has remained stable. He has a past history of myocardial infarction. There is no history of congestive heart failure. Although he denies palpitations he has been seen to be in atrial flutter/fibrillation. He has no TIA CVA. In the past he has had chronic kidney disease. But at present his patient's GFR is normal and the patient's kidney function appears to be normal. Pulmonary Medical History: Denies: Asthma, Bronchitis, Chronic Obstructive Pulmonary Disease (COPD), Pneumonia Neurological Medical History: Denies: Seizures. No history of migraines. No history of TIA or CVA. Endocrine Medical History: Reports: Diabetes Mellitus Type 2 Musculoskeltal Medical History: Reports: Arthritis Hematology: Denies: Anemia PSYCHIATRIC: The patient does have a history of anxiety. There is no history of depression. resuscitation STATUS: The patient is a full code. His daughter Ms. Caty Singleton is his surrogate healthcare decision maker. Past Surgical History Past Surgical History: Reports: Appendectomy, Coronary Artery Bypass Graft, and porcine mitral valve replacement., Orthopedic Surgery Social History Information Source: Patient Lives with: Family Smoking Status: Former Smoker Electronic Cigarette use?: No Hx Recreational Drug Use: No - Advance Directive Resuscitation Status: Full Code Family History Family History: Reviewed & Not Pertinent Parental Family History Reviewed: Yes - Family history of diabetes mellitus Children Family History Reviewed: Yes Sibling(s) Family History Reviewed.: Yes Medication/Allergy Home Medications: Aspirin [Aspirin 81 mg Chewable Tablet] 81 mg PO DAILY 07/06/14 Glipizide [Glipizide Xl] 2.5 mg PO DAILY 07/06/14 Lisinopril/Hydrochlorothiazide [Lisinopril-Hctz 20-12.5 mg Tab] 1 each PO DAILY 07/06/14 Metformin HCl [Glucophage 500 mg Tablet] 500 mg PO BIDACBS 07/06/14 Nifedipine [Nifedipine ER] 60 mg PO DAILY 07/06/14 Simvastatin 40 mg PO DAILY 07/06/14 Azithromycin [Zithromax Tri-Fred] 500 mg PO DAILY #1 pkg 10/06/14 Cyclobenzaprine HCl [Flexeril 10 mg Tablet] 10 mg PO BID PRN #15 tablet 12/15/15 Allergies/Adverse Reactions: No Known Allergies Allergy (Verified 06/16/20 09:27) Current Medications Generic Name Dose Route Start Last Admin Trade Name Freq PRN Reason Stop Dose Admin Acetaminophen 650 mg 06/16/20 14:05 Tylenol 325 Mg Tablet PO 07/16/20 14:04 Q4HP PRN FEVER >101 Albuterol/Ipratropium 3 ml 06/16/20 14:33 Duoneb 3 Ml Ampul NEB 07/16/20 14:32 RTQ4HP PRN FOR WHEEZING Dextrose 12.5 gm 06/16/20 14:14 Dextrose Inj 50% Syringe (25 Gm/50 Ml) IV 07/16/20 14:13 PRN PRN FOR BG 50-69 IN ALERT PATIENT Protocol Dextrose 25 gm 06/16/20 14:14 Dextrose Inj 50% Syringe (25 Gm/50 Ml) IV 07/16/20 14:13 PRN PRN PER PROTOCOL Protocol Famotidine 20 mg 06/16/20 22:00 06/16/20 21:49 Pepcid 20 Mg Tablet PO 07/16/20 21:59 20 mg Q12 [facility] Administration Glipizide 10 mg 06/17/20 10:00 Glucotrol Xl 5 Mg Tab.Er PO 07/17/20 09:59 DAILY [facility] Glucagon 1 mg 06/16/20 14:14 Glucagen Inj 1 Mg Vial IM 07/16/20 14:13 PRN PRN Evaluate for BG < 70 Protocol Glucose 15 gm 06/16/20 14:14 Glutose 40% Gel 15 Gm Tube PO 07/16/20 14:13 PRN PRN FOR BG 50-69 IN ALERT PATIENT Protocol Glucose 30 gm 06/16/20 14:14 Glutose 40% Gel 15 Gm Tube PO 07/16/20 14:13 PRN PRN FOR BG < 50 IN ALERT PATIENT Protocol Hydrochlorothiazide 12.5 mg 06/17/20 10:00 Hydrodiuril 12.5 Mg Tablet PO 07/17/20 09:59 DAILY [facility] Diltiazem HCl 125 mg in 125 mls @ 0 mls/hr 06/16/20 09:38 06/16/20 21:40 Cardizem Rtu Inj 125 Mg-D5w 125 Ml Premix IV 07/16/20 09:37 15 mg/hr CONTINUOUS PRN 15 mls/hr THIS MED IS NOT "PRN" Titration Protocol Titrate Azithromycin 500 mg/ Dextrose 250 mls @ 250 mls/hr 10/24/20 10:00 IV 06/24/20 09:59 DAILY [facility] Ceftriaxone Sodium/Dextrose 1 gm in 50 mls @ 100 mls/hr 06/17/20 12:00 Rocephin Rtu 1 Gm/D5w 50 Ml Premix IV 06/24/20 11:59 NOON [facility] Influenza Virus Vaccine Quadrival 0.5 ml 06/17/20 08:00 Flulaval Quad 2020- Vac 0.5 Ml Syr IM 06/17/20 08:01 .ONCE ONE Isosorbide Mononitrate 60 mg 06/17/20 10:00 Imdur 60 Mg Tablet.Er PO 07/17/20 09:59 DAILY [facility] Lisinopril 20 mg 06/17/20 10:00 Prinivil 10 Mg Tablet PO 07/17/20 09:59 DAILY [facility] Melatonin 10 mg 06/16/20 21:40 06/16/20 21:49 Melatonin 5 Mg Tablet PO 07/16/20 21:39 10 mg HSP PRN Administration FOR SLEEP Metoprolol Tartrate 25 mg 06/16/20 18:00 06/16/20 18:06 Lopressor 25 Mg Tablet PO 07/16/20 17:59 25 mg Q12A [facility] Administration Multivitamins 1 tab 06/17/20 10:00 Tab-A-Peter (Multiple Vitamin) Tablet PO 07/17/20 09:59 DAILY [facility] Ondansetron HCl 4 mg 06/16/20 14:05 Zofran Inj/Pf 4 Mg/2 Ml Sdv IV 07/16/20 14:04 Q8HP PRN FOR NAUSEA/VOMITING Patient Own Medication 20 mg 06/17/20 10:00 Pravastatin Sodium [Pravachol] PO 07/17/20 09:59 .DAILY [facility] Patient Own Medication 1 each 06/17/20 10:00 Vit C/Vit E Ac/Lut/Copper/Zinc [Preservision Lutein Softgel] PO 07/17/20 09:59 DAILY [facility] Sodium Chloride 2.5 ml 06/16/20 22:00 06/16/20 21:04 Saline Flush 2.5 Ml Monoject Prefil Syrin IV 07/16/20 21:59 Not Given Q8 [facility] Tamsulosin HCl 0.4 mg 06/17/20 10:00 Flomax 0.4 Mg Cap.Sr PO 07/17/20 09:59 DAILY [facility] Discontinued Medications Generic Name Dose Route Start Last Admin Trade Name Anette PRN Reason Stop Dose Admin Azithromycin 500 mg 06/16/20 12:53 06/16/20 14:22 Zithromax Inj 500 Mg Vial IV 06/16/20 12:54 500 mg IVBAG (ED) ONE Administration Azithromycin 500 mg 06/17/20 10:00 Zithromax Inj 500 Mg Vial IV 06/24/20 09:59 DAILY [facility] Ceftriaxone Sodium 1,000 mg 06/16/20 14:15 Rocephin Inj 1000 Mg Vial IV 06/23/20 14:14 IVBAG (ED) [facility] Digoxin 0.25 mg 06/16/20 13:09 06/16/20 13:41 Lanoxin Inj 0.5 Mg/2 Ml Ampule IV 06/16/20 13:10 0.25 mg NOW ONE Administration Diltiazem HCl 10 mg 06/16/20 09:38 06/16/20 09:55 Cardizem Inj 25 Mg/5 Ml Vial IV 06/16/20 09:39 10 mg NOW ONE Administration Enoxaparin Sodium 30 mg 06/17/20 10:00 Lovenox Inj 30 Mg/0.3 Ml Disp.Syrin SUBCUT 07/17/20 09:59 DAILY [facility] Ceftriaxone Sodium/Dextrose 1 gm in 50 mls @ 100 mls/hr 06/16/20 12:52 06/16/20 14:20 Rocephin Rtu 1 Gm/D5w 50 Ml Premix IV 06/16/20 13:21 Infused NOW ONE Infusion Review of Systems Constitutional: PRESENT: fatigue, night sweats, weakness. ABSENT: fever(s), headache(s) Eyes: ABSENT: visual disturbances. No history of amblyopia diplopia. No history of amaurosis fugax. Ears: ABSENT: hearing changes. No history of vertigo or tinnitus. Nose, Mouth, and Throat: ABSENT: sore throat. No history of odynophagia or dysphagia. Respiratory: PRESENT: cough, dyspnea, sputum cardiovascular: History of hypertension well controlled. History of hyperlipidemia on statin. He has a history of recent onset of atrial fibrillation/flutter. He is asymptomatic from it. His heart rate has been difficult to control. Recently in the office his nifedipine was discontinued for possible reflex tachycardia and the patient's was placed on metoprolol extended release 5025 mg p.o. twice daily. The plan was to increase it gradually. Gastrointestinal: ABSENT: abdominal pain. No history of GI bleed. No history of hematochezia. No history of fatty food intolerance. No history of ascites or cirrhosis. No history of hepatitis or jaundice. Genitourinary: ABSENT: dysuria, hematuria. Past history of chronic kidney disease. At present the patient's renal function is normal. Musculoskeletal: ABSENT: joint swelling Integumentary: ABSENT: rash, wounds Neurological: ABSENT: abnormal gait, abnormal speech, confusion, dizziness, focal weakness, syncope Psychiatric: ABSENT: depression, homidical ideation, suicidal ideation. He does have a history of anxiety. Endocrine: ABSENT: cold intolerance, heat intolerance, polydipsia, polyuria. He has history of diabetes mellitus. There is no history of thyroid disease. SKIN: Skin is warm and moist. There is no history of pruritus or yellowish discoloration of the skin. No skin psoriasis or skin cancer. PHYSICAL EXAMINATION: The patient is well-built and well-nourished. Appears to be slightly younger than his stated age. Selected Entries 06/16/20 16:24 Temperature 97.3 F Temperature Oral Source Pulse Rate 129 H Respiratory 18 Rate Blood Pressure 125/94 H Blood Pressure 104 Mean BP Location Right Arm BP Position Supine O2 Sat by Pulse 100 Oximetry Oxygen Delivery Room Air Method HEAD: Is atraumatic normocephalic. EYES: Pupils are equal round regular reactive to light and accommodation. Extraocular movements are normal. There is no conjunctival pallor. There is no scleral icterus. EARS: Tympanic membranes are intact. External auditory canals are clear. NOSE: There is no deviated nasal septum. There is no inflammation nasal mucous membrane. MOUTH: There is no redness of the oropharynx. There is no exudates. There is no bleeding from the gums. THROAT: There is no redness of the oropharynx. There is no exudates in the throat. SKIN: There is no petechia or ecchymosis. There is no skin lesions or skin rashes. NECK: Is supple. There is no JVD. Carotids are equal there is no bruit. There is no lymphadenopathy. There is no goiter.. There is no accessory muscle respiration use. Trachea central. LUNGS: There is dullness and absent breath sounds in the right lower lobe. The rest of the lungs are clear without any rhonchi rales or wheezing. HEART: S1-S2 is heard. S1 is of variable intensity. There is no S3 gallop. There is no S4 gallop. There is systolic murmur left sternal border and the apex there is no rub. ABDOMEN: Is soft. Nontender. There is no hepatosplenomegaly. Bowel sounds are well heard. There is a right inguinal hernia, and seems to be uncomplicated. EXTREMITIES: Femorals are well felt. There is no femoral bruits. Leg pulses well felt. There is no pedal edema. There is no DVT or cellulitis. There is no calf tenderness. There is no cyanosis or clubbing. [employer]: The patient is conscious awake alert oriented x3 with no focal deficits. PSYCHIATRIC: The patient judgment insight are intact his affect is normal. Labs- Entire Visit 06/16/20 06/16/20 06/16/20 09:20 09:20 09:20 WBC 7.5 RBC 4.49 Hgb 13.8 Hct 39.9 MCV 89 MCH 30.6 MCHC 34.4 RDW 13.8 Plt Count 167 Lymph % (Auto) 19.0 Elbert % (Auto) 8.4 Eos % (Auto) 2.8 Baso % (Auto) 0.8 Absolute Neuts (auto) 5.2 Absolute Lymphs (auto) 1.4 Absolute Monos (auto) 0.6 Absolute Eos (auto) 0.2 Absolute Basos (auto) 0.1 Seg Neutrophils % 69.0 PT INR Sodium 142.3 Potassium 4.7 Chloride 108 H Carbon Dioxide 22 Anion Gap 12 BUN 26 H Creatinine 1.21 Est GFR ( Amer) > 60 Est GFR (MDRD) Non-Af 58 L Glucose 180 H POC Glucose Calcium 9.4 Total Bilirubin 1.2 Direct Bilirubin 0.4 Neonat Total Bilirubin Not Reportable Neonat Direct Bilirubin Not Reportable Neonat Indirect Bili Not Reportable AST 35 ALT 19 Alkaline Phosphatase 86 Creatine Kinase 49 L CK-MB (CK-2) 1.19 Troponin I 0.015 Total Protein 7.5 Albumin 4.2 06/16/20 06/16/20 06/16/20 09:20 12:07 14:50 WBC RBC Hgb Hct MCV MCH MCHC RDW Plt Count Lymph % (Auto) Elbert % (Auto) Eos % (Auto) Baso % (Auto) Absolute Neuts (auto) Absolute Lymphs (auto) Absolute Monos (auto) Absolute Eos (auto) Absolute Basos (auto) Seg Neutrophils % PT 37.0 H INR 3.78 Sodium Potassium Chloride Carbon Dioxide Anion Gap BUN Creatinine Est GFR ( Amer) Est GFR (MDRD) Non-Af Glucose POC Glucose Calcium Total Bilirubin Direct Bilirubin Neonat Total Bilirubin Neonat Direct Bilirubin Neonat Indirect Bili AST ALT Alkaline Phosphatase Creatine Kinase CK-MB (CK-2) Troponin I 0.015 0.019 Total Protein Albumin 06/16/20 06/16/20 06/16/20 16:25 19:31 21:59 WBC RBC Hgb Hct MCV MCH MCHC RDW Plt Count Lymph % (Auto) Elbert % (Auto) Eos % (Auto) Baso % (Auto) Absolute Neuts (auto) Absolute Lymphs (auto) Absolute Monos (auto) Absolute Eos (auto) Absolute Basos (auto) Seg Neutrophils % PT INR Sodium Potassium Chloride Carbon Dioxide Anion Gap BUN Creatinine Est GFR ( Amer) Est GFR (MDRD) Non-Af Glucose POC Glucose 188 H 160 H Calcium Total Bilirubin Direct Bilirubin Neonat Total Bilirubin Neonat Direct Bilirubin Neonat Indirect Bili AST ALT Alkaline Phosphatase Creatine Kinase CK-MB (CK-2) Troponin I 0.041 Total Protein Albumin Chest X-Ray 06/16/20 09:15 IMPRESSION: Volume loss and consolidation right lower lobe with fullness of the right hilum and small right pleural effusion. Postobstructive pneumonia from right hilar mass may be present. Consider CT chest for followup. Few Concepcion lines at the left lung base, question interstitial edema or fluid overload. 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 Chest/Abdomen CTA 06/16/20 10:44 IMPRESSION: 1. Enlarged left lobe of the thyroid gland which extends substernally. 2. Moderate to large right-sided pleural effusions some a which is loculated superiorly. 3. Right lower lobe atelectasis or pneumonia. 4. Cardiomegaly. 5. No pulmonary emboli. EKG: Shows atrial flutter/fibrillation with rapid ventricular response. Right bundle branch block pattern and left posterior fascicle block. IMPRESSION/RECOMMENDATION: 1. Atrial flutter/fibrillation with rapid ventricular response. Would recommend increase the patient's Cardizem drip to 15 mg/h. The patient's INR is 3.78 and hence would hold the patient's Coumadin for now. And restart Coumadin when the INR is below 3. Would recommend checking the patient's thyroid function. 2. Right lower lobe pneumonia with loculated right lower lobe effusion: Agree with antibiotics. 3. Coronary artery disease:. History of coronary bypass graft surgery patient without any anginal symptoms. 4. Hypertension: Blood pressure appears to be well controlled at present. 5. Diabetes mellitus type 2: None insulin requiring. Continue antidiabetic medication and Accu-Cheks as per protocol. 6. Hyperlipidemia: Continue statins. 7. History of mitral valve replacement with porcine valve. Appears to be functioning normally. Discussed with the patient and patient's daughter. Medications reviewed. Medications adjusted. Medical decision making is of high complexity. Medical regimen and management plan discussed with attending provider on the case. Medical decision making is of high complexity. 60 minutes spent with patient with more than 50% of time spent in direct patient care. Will follow
[2020-06-16] MEDS ORDERED: MELATONIN 5 MG TABLET PO PRN (21:40)
[2020-06-16] MEDS: FAMOTIDINE 20 MG TABLET PO SCH (21:49)
[2020-06-17] MEDS ORDERED: NORMAL SALINE 500 ML IV ONE (00:30)
[2020-06-17] MEDS ORDERED: METOPROLOL TARTRATE PF/INJ 5 MG/5 ML SDV IV ONE ×2 (02:39→03:00)
[2020-06-17 05:18] LABS: ABSOLUTE BASOPHILS # (AUTO) 0.1 10^3/uL (0.0-0.2); ABSOLUTE EOSINOPHILS # (AUTO) 0.3 10^3/uL (0.0-0.6); ABSOLUTE LYMPHOCYTES (AUTO) 1.1 10^3/uL (0.5-4.7); ABSOLUTE MONOCYTES (AUTO) 0.6 10^3/uL (0.1-1.4); ABSOLUTE NEUT (AUTO) 4.5 10^3/uL (1.7-8.2); BASOPHILS % (AUTO) 0.8 % (0-2); HEMATOCRIT 38.9 % (37.9-51.0); HEMOGLOBIN 13.1 g/dL (13.5-17.0); LYMPHOCYTES % (AUTO) 16.4 % (13-45); MEAN CORPUSCULAR HGB CONC 33.8 g/dL (32.0-36.0); MEAN CORPUSCULAR VOLUME 89 fl (80-97); MONOCYTES % (AUTO) 9.3 % (3-13); PLATELET COUNT 139 10^3/uL (150-450); RED BLOOD COUNT 4.38 10^6/uL (4.35-5.55); RED CELL DISTRIBUTION WIDTH 13.6 % (11.5-14.0); SEGMENTED NEUTROPHILS % (AUTO) 68.5 % (42-78); TOTAL CELLS COUNTED % (AUTO) 100 %; WHITE BLOOD COUNT 6.6 10^3/uL (4.0-10.5)
[2020-06-17 05:25] LABS: INTERNATIONAL RATION (INR) 3.51; PROTHROMBIN TIME 34.9 SEC (11.4-15.4)
[2020-06-17 05:28] LABS: ALBUMIN 3.3 g/dL (3.5-5.0); ALKALINE PHOSPHATASE 72 U/L (38-126); ANION GAP 9 (5-19); ASPARTATE AMINO TRANSFERASE 27 U/L (17-59); BILIRUBIN,DIRECT 0.3 mg/dL (0.0-0.4); BILIRUBIN,TOTAL 1.1 mg/dL (0.2-1.3); BLOOD UREA NITROGEN 26 mg/dL (7-20); CALCIUM 8.8 mg/dL (8.4-10.2); CARBON DIOXIDE 22 mmol/L (22-30); CHLORIDE 108 mmol/L (98-107); CHOLESTEROL 110.97 mg/dL (0-200); GLUCOSE 153 mg/dL (75-110); TRIGLYCERIDES 73 mg/dL (<150)
[2020-06-17 05:39] LABS: DIRECT LDL 57 mg/dL (<100)
[2020-06-17 05:43] LABS: FREE T3 3.56 pg/mL (2.77-5.27); FREE T4 (FREE THYROXINE) 1.32 ng/dL (0.78-2.19)
[2020-06-17 05:57] LABS: THYROID STIMULATING HORMONE 4.89 uIU/mL (0.47-4.68)
[2020-06-17] MEDS: METOPROLOL TARTRATE 25 MG TABLET PO SCH ×2 (06:29→17:08)
[2020-06-17] MEDS: DILTIAZEM HCL/D5W 125 MG/125 ML RTUINJ IV PRN ×2 (06:29→16:04)
[2020-06-17] MEDS ORDERED: INFLUENZA QUAD (6MOS+) 2020-21 VAC 0.5 ML SYR IM ONE (08:00)
--- NOTE | 2020-06-17 09:21 | PDOC PROGRESS REPORT ---
Subjective Progress Note for:: 06/17/20 Subjective:: 80 year old male with history of atrial fibrillation, mitral valve replacement with pig valve on warfarin, triple-vessel bypass, diabetes, hypertension, hypercholesteremia came to the emergency with complaining of increasing shortness of breath. Also to the cough with a greenish sputum. He denies any fevers. Denies any nausea vomiting diarrhea or abdominal pain. Work-up in the ER shows A. fib with RVR was started on Cardizem drip then was given digoxin. CT of the chest indicate you have right-sided pleural effusion moderate-sized pleural effusion with parapneumonic effusion. Start IV antibiotic therapy. Medical consult was called for admission. INR in the ER is 3.74. 06/17/2020-patient was on Cardizem drip last night. He was given metoprolol 2.5 mg IV 1 dose for high heart rate. Blood pressures on the softer side he was given a 500 cc of normal saline bolus. I discussed the case with Dr. Morgan he wants to stop hydrochlorothiazide and to give a digoxin 0.25 mg 1 dose. pt is comfortably in the bed communicating well. Not in distress. Reason For Visit: ATRIAL FIB Physical Exam Vital Signs: Temp Pulse Resp BP Pulse Ox 98.1 F 124 H 17 119/77 94 06/17/20 07:18 06/17/20 07:18 06/17/20 07:18 06/17/20 07:18 06/17/20 07:18 Intake & Output 06/16/20 06/17/20 06/18/20 06:59 06:59 06:59 Intake Total 634 Output Total 200 Balance 434 Weight 101.1 kg General appearance: PRESENT: no acute distress, obese Head exam: PRESENT: atraumatic Eye exam: PRESENT: PERRLA Mouth exam: PRESENT: moist, tongue midline Teeth exam: PRESENT: poor dentation Neck exam: ABSENT: carotid bruit, JVD, lymphadenopathy, thyromegaly Respiratory exam: PRESENT: decreased breath sounds Cardiovascular exam: PRESENT: RRR. ABSENT: diastolic murmur, rubs, systolic murmur GI/Abdominal exam: PRESENT: normal bowel sounds, soft. ABSENT: distended, guarding, mass, organolmegaly, rebound, tenderness Rectal exam: PRESENT: deferred Extremities exam: PRESENT: full ROM. ABSENT: calf tenderness, clubbing, pedal edema Neurological exam: PRESENT: alert, awake, oriented to person, oriented to place, oriented to time, oriented to situation, CN II-XII grossly intact. ABSENT: motor sensory deficit Psychiatric exam: PRESENT: appropriate affect, normal mood. ABSENT: homicidal ideation, suicidal ideation Results Laboratory Results: 06/17/20 04:55 06/17/20 04:55 06/16/20 06/16/20 06/17/20 09:20 09:20 04:55 WBC 7.5 6.6 RBC 4.49 4.38 Hgb 13.8 13.1 L Hct 39.9 38.9 MCV 89 89 MCH 30.6 30.0 MCHC 34.4 33.8 RDW 13.8 13.6 Plt Count 167 139 L Seg Neutrophils % 69.0 68.5 Sodium 142.3 Potassium 4.7 Chloride 108 H Carbon Dioxide 22 Anion Gap 12 BUN 26 H Creatinine 1.21 Est GFR ( Amer) > 60 Glucose 180 H Calcium 9.4 Magnesium Total Bilirubin 1.2 AST 35 Alkaline Phosphatase 86 Total Protein 7.5 Albumin 4.2 Triglycerides Cholesterol LDL Cholesterol Direct VLDL Cholesterol HDL Cholesterol Lipase TSH Free T4 Free T3 pg/mL 06/17/20 06/17/20 04:55 04:55 WBC RBC Hgb Hct MCV MCH MCHC RDW Plt Count Seg Neutrophils % Sodium 138.9 Potassium 4.0 Chloride 108 H Carbon Dioxide 22 Anion Gap 9 BUN 26 H Creatinine 1.08 Est GFR ( Amer) > 60 Glucose 153 H Calcium 8.8 Magnesium 2.1 Total Bilirubin 1.1 AST 27 Alkaline Phosphatase 72 Total Protein 6.0 L Albumin 3.3 L Triglycerides 73 Cholesterol 110.97 LDL Cholesterol Direct 57 VLDL Cholesterol 15.0 HDL Cholesterol 40 Lipase 75.6 TSH 4.89 H Free T4 1.32 Free T3 pg/mL 3.56 06/16/20 06/16/20 06/16/20 09:20 09:20 12:07 Creatine Kinase 49 L CK-MB (CK-2) 1.19 Troponin I 0.015 0.015 NT-Pro-B Natriuret Pep 06/16/20 06/16/20 06/17/20 14:50 19:31 02:15 Creatine Kinase CK-MB (CK-2) Troponin I 0.019 0.041 0.076 NT-Pro-B Natriuret Pep 06/17/20 04:55 Creatine Kinase CK-MB (CK-2) Troponin I NT-Pro-B Natriuret Pep 8040 H Impressions: Chest X-Ray 06/16/20 09:15 IMPRESSION: Volume loss and consolidation right lower lobe with fullness of the right hilum and small right pleural effusion. Postobstructive pneumonia from right hilar mass may be present. Consider CT chest for followup. Few Concepcion lines at the left lung base, question interstitial edema or fluid ove rload. 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 Chest/Abdomen CTA 06/16/20 10:44 IMPRESSION: 1. Enlarged left lobe of the thyroid gland which extends substernally. 2. Moderate to large right-sided pleural effusions some a which is loculated superiorly. 3. Right lower lobe atelectasis or pneumonia. 4. Cardiomegaly. 5. No pulmonary emboli. Assessment and Plan - Diagnosis (1) Atrial flutter with rapid ventricular response Is this a current diagnosis for this admission?: Yes Plan: 06/16/2020-patient admitted for A. fib with RVR. Cardiology consult was requested. Patient was started on Cardizem drip and also given loading dose of digoxin. To do the serial troponins. RS 3.74 to hold Coumadin at this time. GI prophylaxis initiated. Restarted on metoprolol 25 mg p.o. twice daily. 06/17/2020-patient admitted with atrial fibrillation with RVR. On Cardizem drip. Heart rate is still slightly elevated to give digoxin 0.25 mg 1 dose. To stop hydrochlorothiazide. Creatinine is improved. Latest echocardiogram shows EF of around 55%. INR is 3.5 to continue to hold Coumadin at this time. (2) Right lower lobe pneumonia Is this a current diagnosis for this admission?: Yes Plan: 06/16/2020-patient has right lower lobe pneumonia. Blood cultures requested patient start on IV Rocephin and Zithromax. Patient may need right-sided thoracentesis diagnostic thoracentesis. To continue IV Rocephin and Zithromax at this time. 06/17/2020-patient admitted with right lower lobe pneumonia. Afebrile. Blood cultures still pending. To continue IV Rocephin, IV Zithromax at this time. To consider right-sided diagnostic thoracentesis on Friday. (3) Loculated pleural effusion Is this a current diagnosis for this admission?: Yes Plan: 06/16/2020-patient came in with complaints of shortness of breath CT scan shows loculated right-sided pleural effusion. Started on IV antibiotic therapy. Patient may need a diagnostic thoracentesis on Friday. 06/17/20-pulse ox is 95% on 2 L. To continue IV antibiotic therapy at this time. To continue nebulizer treatment. (4) Mitral valve replaced Is this a current diagnosis for this admission?: No Plan: 06/16/2020-patient has history of wall replacement with pig valve. Patient is on Coumadin for atrial fibrillation. INR 3.74. To closely monitor the PT/INR on daily basis. 09/17/2019-patient has history of porcine mitral valve replacement on Coumadin. INR is 3.5. To hold Coumadin until the INR comes down to less than 3. (5) HTN (hypertension) Is this a current diagnosis for this admission?: No Plan: 06/16/2020-patient has history of chronic essential hypertension taking Lasix, lisinopril/hydrochlorothiazide at home. Plan is to continue the blood pressure medications during the hospital stay. His blood pressure in the ER is 122/86. 06/17/2020-blood pressure this morning is 112/71. To discontinue hydrochlorothiazide. Discontinue Cardizem drip at this time. (6) Diabetes Qualifiers: Diabetes mellitus type: type 2 Is this a current diagnosis for this admission?: No Plan: 06/16/2020-patient has history of type 2 diabetes mellitus. Latest blood sugar is 180. To hold metformin and to continue glipizide. Compliance with medications advised. 06/17/2020-latest blood sugar is 137. Plan is to continue insulin sliding scale coverage before meals and at bedtime. - Time Anticipated Discharge Disposition: Home, Self Care Anticipated Discharge Timeframe: within 48 hours
[2020-06-17] MEDS ORDERED: DIGOXIN INJ 0.5 MG/2 ML AMPULE IV ONE ×3 (09:45→20:51)
[2020-06-17] MEDS ORDERED: (PENDING PHARMACY ID) (Lisinopril/Hydrochlorothiazide [Lisinopril-Hctz 20-12.5 Mg Tab] 1 E PO SCH (10:00)
[2020-06-17] MEDS ORDERED: HYDROCHLOROTHIAZIDE 12.5 MG TABLET PO SCH (10:00)
[2020-06-17] MEDS ORDERED: COPPER PO SCH (10:00)
[2020-06-17] MEDS ORDERED: ENOXAPARIN SODIUM INJ 30 MG/0.3 ML DISP.SYRIN SUBCUT SCH (10:00)
[2020-06-17] MEDS ORDERED: VIT C PO SCH (10:00)
[2020-06-17] MEDS ORDERED: ZINC PO SCH (10:00)
[2020-06-17] MEDS ORDERED: [UNRECOGNIZED DRUG - OTHER] PO SCH (10:00)
[2020-06-17] MEDS ORDERED: VIT E AC PO SCH (10:00)
[2020-06-17] MEDS ORDERED: LUT PO SCH (10:00)
[2020-06-17] MEDS ORDERED: AZITHROMYCIN INJ 500 MG VIAL IV SCH (10:00)
--- NOTE | 2020-06-17 10:01 | RADIOLOGY REPORT (SQ) ---
EXAM DESCRIPTION: U/S THYROID/SFT TISS HD NECK IMAGES COMPLETED DATE/TIME: 06/17/2020 9:20 am REASON FOR STUDY: thyroid mass COMPARISON: None. TECHNIQUE: Dynamic and static shipley-scale images acquired of the thyroid gland. Selected additional c olor/power Doppler images recorded. All images stored to PACS. LIMITATIONS: None. FINDINGS: RIGHT LOBE: 5 cm Heterogeneous echotexture. Nodule Number: 1 Location: Right Mid Size: 2.3 x 1.8 cm Composition: Solid or almost completely solid 2 points Echogenicity: Hyperechoic or isoechoic 1 point Shape: [id number] 0 points Margin: Ill-defined 0 points Echogenic Foci: None or large comet-tail artifacts 0 points Total Points: 3 TIRADS Category: TI-RADS 3 Total Points 3 Recommendations: TI-RADS 3: Mildly Suspicious: FNA >=2.5cm; Follow if > = 1.5 cm at 1,3,and 5 years. LEFT LOBE: 7 cm Heterogeneous echotexture. Nodule Number: 1 Location: Left Mid Size: 2.3 cm Composition: Cystic or almost completely cystic 0 points Echogenicity: Anechoic 0 points Shape: [id number] 0 points Margin: Smooth 0 points Echogenic Foci: None or large comet-tail artifacts 0 points Total Points: 0 TIRADS Category: TI-RADS 1 Total Points 0 Recommendations: TI-RADS 1: Benign No FNA Nodule Number: 2 Location: Left Lateral Size: 4.9 x 3.4 cm Composition: Solid or almost completely solid 2 points Echogenicity: Hyperechoic or isoechoic 1 point Shape: [id number] 0 points Margin: Ill-defined 0 points Echogenic Foci: None or large comet-tail artifacts 0 points Total Points: 3 TIRADS Category: TI-RADS 3 Total Points 3 Recommendations: TI-RADS 3: Mildly Suspicious: FNA >=2.5cm; Follow if > = 1.5 cm at 1,3,and 5 years. ISTHMUS: Normal size. Homogeneous echotexture. OTHER: No other significant finding. IMPRESSION: Nodule 1 right lobe: Follow-up at 1, 3, 5 years Nodule 1 left lobe: No follow-up necessary Nodule 2 left lobe: FNA recommended. RECOMMENDATION: The [employer] ([employer]) Thyroid Imaging Reporting And Data System (T I-RADS) is an ultrasound feature based summed scoring system of risk categorization and management re commendations for thyroid nodules. TI-RADS assessment categories are as follows: 0 - Incomplete exam: Additional imaging or comparison to prior examinations recommended. 1. - Benign: Fine-needle aspiration or follow-up not routinely recommended in the absence of clinical change. 2. - Not suspicious: Fine-needle aspiration or follow-up not routinely recommended in the absence of clinical change. 3. - Mildly suspicious: Fine-needle aspiration recommended if greater than or equal to 2.5 cm in size . Ultrasound follow-up recommended if greater than or equal to 1.5 cm in size. Follow-up at 1, 3, and 5 years. 4. - Moderately suspicious: Fine-needle aspiration recommended if greater than or equal to 1.5 cm in size. Ultrasound follow-up recommended if greater than or equal to 1.0 cm in size. Follow-up at 1, 2, 3, and 5 years. 5. - Highly suspicious: Fine-needle aspiration recommended if greater than or equal to 1.0 cm in size . Ultrasound follow-up recommended if greater than or equal to 0.5 cm in size. Follow-up at 1, 2, 3, and 5 years. TECHNICAL DOCUMENTATION: JOB ID: [id number] 2010 [employer]- All Rights Reserved Reading location - IP/workstation name: [email or web address]
[2020-06-17] MEDS: FAMOTIDINE 20 MG TABLET PO SCH ×2 (10:03→21:34)
[2020-06-17] MEDS: LISINOPRIL 10 MG TABLET PO SCH (10:04)
[2020-06-17] MEDS: MULTIVITAMIN TABLET PO SCH (10:05)
[2020-06-17] MEDS: TAMSULOSIN HCL 0.4 MG CAP.SR.24H PO SCH (10:05)
[2020-06-17] MEDS: ISOSORBIDE MONONITRATE 60 MG TAB.ER.24H PO SCH (10:05)
[2020-06-17] MEDS: GLIPIZIDE XL 5 MG TAB.ER.24 PO SCH (10:05)
[2020-06-17] MEDS: AZITHROMYCIN 500 MG in DEXTROSE 5%-WATER 250 ML IV SCH (10:09)
[2020-06-17] MEDS ORDERED: DEXTROSE 40% GEL 15 GM TUBE PO PRN (12:10)
--- NOTE | 2020-06-17 12:35 | EKG REPORT ---
SEVERITY:- ABNORMAL ECG - ATRIAL FIBRILLATION, V-RATE 63-115 RBBB AND LPFB : Confirmed by: Abundio Miles MD 17-Jun-2020 12:34:46
[2020-06-17] MEDS: CEFTRIAXONE 1 GM/D5W RTU 1 GM/50 ML RTUPB IV SCH (12:40)
--- NOTE | 2020-06-17 12:42 | Progress Note ---
Provider Note Provider Note: CARDIOLOGY PROGRESS NOTE by Dr. Staci Rust on 06/17/2020. SUBJECTIVE: The patient remains in atrial fibrillation. His heart rate is improved and is anywhere from 92 110 bpm. He is coughing up yellowish-green sputum. He denies chest pain or discomfort. There is no shortness of breath. There is no PND orthopnea or leg edema. There is no ventricle arrhythmia seen on the monitor. He denies any symptoms or problems with his right inguinal hernia. His INR is still over 3. There is no TIA CVA symptoms. PHYSICAL EXAMINATION: The patient is well-built and well-nourished. In no acute distress.\ Selected Entries 06/17/20 06/17/20 11:08 12:00 Pulse Rate 109 H Respiratory 17 Rate Blood Pressure 103/71 O2 Sat by Pulse 97 Oximetry Oxygen Flow 3.00 Rate Oxygen Delivery Nasal Cannula Method HEAD: Is atraumatic normocephalic. EYES: Pupils are equal round regular reactive to light and accommodation. Extraocular movements are normal. There is no conjunctival pallor. There is no scleral icterus. EARS: Tympanic membranes are intact. External auditory canals are clear. NOSE: There is no deviated nasal septum. There is no inflammation nasal mucous membrane. MOUTH: There is no redness of the oropharynx. There is no exudates. There is no ble eding from the gums. THROAT: There is no redness of the oropharynx. There is no exudates in the throat. SKIN: There is no petechia or ecchymosis. There is no skin lesions or skin rashes. NECK: Is supple. There is no JVD. Carotids are equal there is no bruit. There is no lymphadenopathy. There is no goiter.. There is no accessory muscle respiration use. Trachea central. LUNGS: There is dullness and absent breath sounds in the right lower lobe. The rest of the lungs are clear without any rhonchi rales or wheezing. HEART: S1-S2 is heard. S1 is of variable intensity. There is no S3 gallop. There is no S4 gallop. There is systolic murmur left sternal border and the apex there is no rub. ABDOMEN: Is soft. Nontender. There is no hepatosplenomegaly. Bowel sounds are well heard. There is a right inguinal hernia, and seems to be uncomplicated. EXTREMITIES: Femorals are well felt. There is no femoral bruits. Leg pulses well felt. There is no pedal edema. There is no DVT or cellulitis. There is no calf tenderness. There is no cyanosis or clubbing. 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 PSYCHIATRIC: The patient judgment insight are intact his affect is normal. EKG continues to show atrial fibrillation. There is right bundle branch block pattern and left posterior hemiblock. Labs- All tests 24 hr 06/16/20 06/17/20 06/17/20 21:59 02:15 04:55 WBC RBC Hgb Hct MCV MCH MCHC RDW Plt Count Lymph % (Auto) [place] % (Auto) Eos % (Auto) Baso % (Auto) Absolute Neuts (auto) Absolute Lymphs (auto) Absolute Monos (auto) Absolute Eos (auto) Absolute Basos (auto) Seg Neutrophils % PT 34.9 H INR 3.51 Sodium Potassium Chloride Carbon Dioxide Anion Gap BUN Creatinine Est GFR ( Amer) Est GFR (MDRD) Non-Af Glucose POC Glucose 160 H Hemoglobin A1c % Calcium Magnesium Total Bilirubin Direct Bilirubin Neonat Total Bilirubin Neonat Direct Bilirubin Neonat Indirect Bili AST ALT Alkaline Phosphatase Troponin I 0.076 NT-Pro-B Natriuret Pep Total Protein Albumin Triglycerides Cholesterol LDL Cholesterol Direct VLDL Cholesterol HDL Cholesterol Lipase TSH Free T4 Free T3 pg/mL 06/17/20 06/17/20 06/17/20 04:55 04:55 04:55 WBC 6.6 RBC 4.38 Hgb 13.1 L Hct 38.9 MCV 89 MCH 30.0 MCHC 33.8 RDW 13.6 Plt Count 139 L Lymph % (Auto) 16.4 [place] % (Auto) 9.3 Eos % (Auto) 5.0 Baso % (Auto) 0.8 Absolute Neuts (auto) 4.5 Absolute Lymphs (auto) 1.1 Absolute Monos (auto) 0.6 Absolute Eos (auto) 0.3 Absolute Basos (auto) 0.1 Seg Neutrophils % 68.5 PT INR Sodium 138.9 Potassium 4.0 Chloride 108 H Carbon Dioxide 22 Anion Gap 9 BUN 26 H Creatinine 1.08 Est GFR ( Amer) > 60 Est GFR (MDRD) Non-Af > 60 Glucose 153 H POC Glucose Hemoglobin A1c % 5.6 Calcium 8.8 Magnesium 2.1 Total Bilirubin 1.1 Direct Bilirubin 0.3 Neonat Total Bilirubin Not Reportable Neonat Direct Bilirubin Not Reportable Neonat Indirect Bili Not Reportable AST 27 ALT 16 Alkaline Phosphatase 72 Troponin I NT-Pro-B Natriuret Pep Total Protein 6.0 L Albumin 3.3 L Triglycerides 73 Cholesterol 110.97 LDL Cholesterol Direct 57 VLDL Cholesterol 15.0 HDL Cholesterol 40 Lipase 75.6 TSH Free T4 Free T3 pg/mL 06/17/20 06/17/20 06/17/20 04:55 04:55 07:19 WBC RBC Hgb Hct MCV MCH MCHC RDW Plt Count Lymph % (Auto) [place] % (Auto) Eos % (Auto) Baso % (Auto) Absolute Neuts (auto) Absolute Lymphs (auto) Absolute Monos (auto) Absolute Eos (auto) Absolute Basos (auto) Seg Neutrophils % PT INR Sodium Potassium Chloride Carbon Dioxide Anion Gap BUN Creatinine Est GFR ( Amer) Est GFR (MDRD) Non-Af Glucose POC Glucose 137 H Hemoglobin A1c % Calcium Magnesium Total Bilirubin Direct Bilirubin Neonat Total Bilirubin Neonat Direct Bilirubin Neonat Indirect Bili AST ALT Alkaline Phosphatase Troponin I NT-Pro-B Natriuret Pep 8040 H Total Protein Albumin Triglycerides Cholesterol LDL Cholesterol Direct VLDL Cholesterol HDL Cholesterol Lipase TSH 4.89 H Free T4 1.32 Free T3 pg/mL 3.56 06/17/20 06/17/20 11:09 16:11 WBC RBC Hgb Hct MCV MCH MCHC RDW Plt Count Lymph % (Auto) [place] % (Auto) Eos % (Auto) Baso % (Auto) Absolute Neuts (auto) Absolute Lymphs (auto) Absolute Monos (auto) Absolute Eos (auto) Absolute Basos (auto) Seg Neutrophils % PT INR Sodium Potassium Chloride Carbon Dioxide Anion Gap BUN Creatinine Est GFR ( Amer) Est GFR (MDRD) Non-Af Glucose POC Glucose 235 H 167 H Hemoglobin A1c % Calcium Magnesium Total Bilirubin Direct Bilirubin Neonat Total Bilirubin Neonat Direct Bilirubin Neonat Indirect Bili AST ALT Alkaline Phosphatase Troponin I NT-Pro-B Natriuret Pep Total Protein Albumin Triglycerides Cholesterol LDL Cholesterol Direct VLDL Cholesterol HDL Cholesterol Lipase TSH Free T4 Free T3 pg/mL Chest X-Ray 06/16/20 09:15 IMPRESSION: Volume loss and consolidation right lower lobe with fullness of the right hilum and small right pleural effusion. Postobstructive pneumonia from right hilar mass may be present. Consider CT chest for followup. Few Concepcion lines at the left lung base, question interstitial edema or fluid overload. 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 Chest/Abdomen CTA 06/16/20 10:44 IMPRESSION: 1. Enlarged left lobe of the thyroid gland which extends substernally. 2. Moderate to large right-sided pleural effusions some a which is loculated superiorly. 3. Right lower lobe atelectasis or pneumonia. 4. Cardiomegaly. 5. No pulmonary emboli. Thyroid Ultrasound 06/17/20 00:00 IMPRESSION: Nodule 1 right lobe: Follow-up at 1, 3, 5 years Nodule 1 left lobe: No follow-up necessary Nodule 2 left lobe: FNA recommended. IMPRESSION/RECOMMENDATION: 1. Atrial flutter/fibrillation with rapid ventricular response. The heart rate is much improved although not optimally controlled. INR still pretty high. Will give an extra dose of digoxin and decrease the Cardizem to 10 mg/h. 2. Right lower lobe pneumonia with loculated right lower lobe effusion: Agree with antibiotics. 3. Coronary artery disease:. History of coronary bypass graft surgery patient without any anginal symptoms. 4. Hypertension: Blood pressure appears to be well controlled at present. 5. Diabetes mellitus type 2: None insulin requiring. Continue antidiabetic medication and Accu-Cheks as per protocol. 6. Hyperlipidemia: Continue statins. 7. History of mitral valve replacement with porcine valve. Appears to be functioning normally. 8. Substernal thyroid. Does not appear to be any kind of causing any problems. Thyroid function tests are normal although slightly elevated TSH. Medications reviewed. Medications adjusted. Medical decision making is of high complexity. Medical regimen and management plan discussed with attending provider on the case. Medical decision making is of high complexity. 60 minutes spent with patient with more than 50% of time spent in direct patient care. Will follow
[2020-06-17] MEDS: INSULIN REG, HUMAN 100 UNIT/ML 3 ML VIAL (PYX) SUBCUT SCH ×2 (17:09→21:24)
[2020-06-18] MEDS: DILTIAZEM HCL/D5W 125 MG/125 ML RTUINJ IV PRN (05:54)
[2020-06-18] MEDS: METOPROLOL TARTRATE 25 MG TABLET PO SCH ×2 (05:55→17:41)
[2020-06-18 06:42] LABS: ABSOLUTE BASOPHILS # (AUTO) 0.1 10^3/uL (0.0-0.2); ABSOLUTE EOSINOPHILS # (AUTO) 0.6 10^3/uL (0.0-0.6); ABSOLUTE LYMPHOCYTES (AUTO) 1.5 10^3/uL (0.5-4.7); ABSOLUTE MONOCYTES (AUTO) 0.7 10^3/uL (0.1-1.4); ABSOLUTE NEUT (AUTO) 4.8 10^3/uL (1.7-8.2); BASOPHILS % (AUTO) 0.8 % (0-2); EOSINOPHILS % (AUTO) 7.9 % (0-6); HEMATOCRIT 38.8 % (37.9-51.0); HEMOGLOBIN 13.3 g/dL (13.5-17.0); MEAN CORPUSCULAR HEMOGLOBIN 30.5 pg (27.0-33.4); MEAN CORPUSCULAR HGB CONC 34.2 g/dL (32.0-36.0); MEAN CORPUSCULAR VOLUME 89 fl (80-97); PLATELET COUNT 138 10^3/uL (150-450); RED BLOOD COUNT 4.34 10^6/uL (4.35-5.55); RED CELL DISTRIBUTION WIDTH 13.5 % (11.5-14.0); SEGMENTED NEUTROPHILS % (AUTO) 62.3 % (42-78); TOTAL CELLS COUNTED % (AUTO) 100 %; WHITE BLOOD COUNT 7.7 10^3/uL (4.0-10.5)
[2020-06-18 07:18] LABS: ALBUMIN 3.2 g/dL (3.5-5.0); ALKALINE PHOSPHATASE 77 U/L (38-126); ANION GAP 10 (5-19); ASPARTATE AMINO TRANSFERASE 28 U/L (17-59); BILIRUBIN,DIRECT 0.4 mg/dL (0.0-0.4); BILIRUBIN,TOTAL 0.8 mg/dL (0.2-1.3); BLOOD UREA NITROGEN 24 mg/dL (7-20); CALCIUM 8.8 mg/dL (8.4-10.2); CARBON DIOXIDE 23 mmol/L (22-30); CHLORIDE 108 mmol/L (98-107); DIGOXIN 0.67 ng/mL (0.8-2.0); GLUCOSE 113 mg/dL (75-110); POTASSIUM 3.9 mmol/L (3.6-5.0); TOTAL PROTEIN 6.1 g/dL (6.3-8.2)
[2020-06-18] MEDS: INSULIN REG, HUMAN 100 UNIT/ML 3 ML VIAL (PYX) SUBCUT SCH ×4 (08:02→22:17)
--- NOTE | 2020-06-18 08:46 | PDOC PROGRESS REPORT ---
Subjective Progress Note for:: 06/18/20 Subjective:: 80 year old male with history of atrial fibrillation, mitral valve replacement with pig valve on warfarin, triple-vessel bypass, diabetes, hypertension, hypercholesteremia came to the emergency with complaining of increasing shortness of breath. Also to the cough with a greenish sputum. He denies any fevers. Denies any nausea vomiting diarrhea or abdominal pain. Work-up in the ER shows A. fib with RVR was started on Cardizem drip then was given digoxin. CT of the chest indicate you have right-sided pleural effusion moderate-sized pleural effusion with parapneumonic effusion. Start IV antibiotic therapy. Medical consult was called for admission. INR in the ER is 3.74. 06/17/2020-patient was on Cardizem drip last night. He was given metoprolol 2.5 mg IV 1 dose for high heart rate. Blood pressures on the softer side he was given a 500 cc of normal saline bolus. I discussed the case with Dr. Morgan he wants to stop hydrochlorothiazide and to give a digoxin 0.25 mg 1 dose. pt is comfortably in the bed communicating well. Not in distress. 06/18/2020-patient is comfortably in the chair eating breakfast. Still in A. fib. On Cardizem drip received digoxin IV push last night. Digoxin level this morning is 0.67. Dr. Morgan is following the patient. Follow-up chest x-ray is pending. Reason For Visit: ATRIAL FIB Physical Exam Vital Signs: Temp Pulse Resp BP Pulse Ox 98.2 F 107 H 18 131/93 H 98 06/18/20 08:00 06/18/20 08:00 06/18/20 08:00 06/18/20 08:00 06/18/20 08:00 Intake & Output 06/17/20 06/18/20 06/19/20 06:59 06:59 06:59 Intake Total 634 1379 Output Total 200 800 Balance 434 579 Weight 101.1 kg 101.1 kg General appearance: PRESENT: no acute distress, cooperative, well-developed Head exam: PRESENT: atraumatic Eye exam: PRESENT: PERRLA Mouth exam: PRESENT: moist, tongue midline Teeth exam: PRESENT: poor dentation Neck exam: ABSENT: carotid bruit, JVD, lymphadenopathy, thyromegaly Respiratory exam: PRESENT: decreased breath sounds, other - Decreased breath sounds at the right base. Cardiovascular exam: PRESENT: irregular rhythm, tachycardia GI/Abdominal exam: PRESENT: normal bowel sounds, soft. ABSENT: distended, guarding, mass, organolmegaly, rebound, tenderness Rectal exam: PRESENT: deferred Extremities exam: PRESENT: full ROM. ABSENT: calf tenderness, clubbing, pedal edema Neurological exam: PRESENT: alert, awake, oriented to person, oriented to place, oriented to time, oriented to situation, CN II-XII grossly intact. ABSENT: motor sensory deficit Skin exam: PRESENT: dry, intact, warm. ABSENT: cyanosis, rash Results Laboratory Results: 06/18/20 06:13 06/18/20 06:13 06/18/20 06/18/20 06/18/20 06:13 06:13 06:13 WBC 7.7 RBC 4.34 L Hgb 13.3 L Hct 38.8 MCV 89 MCH 30.5 MCHC 34.2 RDW 13.5 Plt Count 138 L Seg Neutrophils % 62.3 Sodium 141.1 Potassium 3.9 Chloride 108 H Carbon Dioxide 23 Anion Gap 10 BUN 24 H Creatinine 1.15 Est GFR ( Amer) > 60 Glucose 113 H Calcium 8.8 Magnesium 2.0 Total Bilirubin 0.8 AST 28 Alkaline Phosphatase 77 Total Protein 6.1 L Albumin 3.2 L TSH 5.19 H 06/16/20 06/16/20 06/16/20 09:20 09:20 12:07 Creatine Kinase 49 L CK-MB (CK-2) 1.19 Troponin I 0.015 0.015 NT-Pro-B Natriuret Pep 06/16/20 06/16/20 06/17/20 14:50 19:31 02:15 Creatine Kinase CK-MB (CK-2) Troponin I 0.019 0.041 0.076 NT-Pro-B Natriuret Pep 06/17/20 04:55 Creatine Kinase CK-MB (CK-2) Troponin I NT-Pro-B Natriuret Pep 8040 H Impressions: Chest X-Ray 06/16/20 09:15 IMPRESSION: Volume loss and consolidation right lower lobe with fullness of the right hilum and small right pleural effusion. Postobstructive pneumonia from ri ght hilar mass may be present. Consider CT chest for followup. Few Concepcion lines at the left lung base, question interstitial edema or fluid overload. 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 Chest/Abdomen CTA 06/16/20 10:44 IMPRESSION: 1. Enlarged left lobe of the thyroid gland which extends substernally. 2. Moderate to large right-sided pleural effusions some a which is loculated superiorly. 3. Right lower lobe atelectasis or pneumonia. 4. Cardiomegaly. 5. No pulmonary emboli. Thyroid Ultrasound 06/17/20 00:00 IMPRESSION: Nodule 1 right lobe: Follow-up at 1, 3, 5 years Nodule 1 left lobe: No follow-up necessary Nodule 2 left lobe: FNA recommended. Assessment and Plan - Diagnosis (1) Atrial flutter with rapid ventricular response Is this a current diagnosis for this admission?: Yes Plan: 06/16/2020-patient admitted for A. fib with RVR. Cardiology consult was requested. Patient was started on Cardizem drip and also given loading dose of digoxin. To do the serial troponins. RS 3.74 to hold Coumadin at this time. GI prophylaxis initiated. Restarted on metoprolol 25 mg p.o. twice daily. 06/17/2020-patient admitted with atrial fibrillation with RVR. On Cardizem drip. Heart rate is still slightly elevated to give digoxin 0.25 mg 1 dose. To stop hydrochlorothiazide. Creatinine is improved. Latest echocardiogram shows EF of around 55%. INR is 3.5 to continue to hold Coumadin at this time. 06/18/20-patient is still in A. fib with RVR. On Cardizem drip. Received digoxin last night. Digoxin level is 0.67 today. Cardiology on board. Today's INR is pending. (2) Right lower lobe pneumonia Is this a current diagnosis for this admission?: Yes Plan: 06/16/2020-patient has right lower lobe pneumonia. Blood cultures requested pa tient start on IV Rocephin and Zithromax. Patient may need right-sided thoracentesis diagnostic thoracentesis. To continue IV Rocephin and Zithromax at this time. 06/17/2020-patient admitted with right lower lobe pneumonia. Afebrile. Blood cultures still pending. To continue IV Rocephin, IV Zithromax at this time. To consider right-sided diagnostic thoracentesis on Friday. 06/18/2020-blood cultures are negative so far. Afebrile. WBC count within normal limits. Plan is to continue IV Rocephin and Zithromax at this time. (3) Loculated pleural effusion Is this a current diagnosis for this admission?: Yes Plan: 06/16/2020-patient came in with complaints of shortness of breath CT scan shows loculated right-sided pleural effusion. Started on IV antibiotic therapy. Patient may need a diagnostic thoracentesis on Friday. 06/17/20-pulse ox is 95% on 2 L. To continue IV antibiotic therapy at this time. To continue nebulizer treatment. 06/18/2020-pulse ox today is 96% on 3 L. Repeat chest x-ray is pending today. Comfortably in the chair eating breakfast. Not in distress. (4) Mitral valve replaced Is this a current diagnosis for this admission?: No Plan: 06/16/2020-patient has history of wall replacement with pig valve. Patient is o n Coumadin for atrial fibrillation. INR 3.74. To closely monitor the PT/INR on daily basis. 06/17/2020-patient has history of porcine mitral valve replacement on Coumadin. INR is 3.5. To hold Coumadin until the INR comes down to less than 3. 06/18/2020-INR is pending today. Goal is to keep the INR between 2-3. (5) HTN (hypertension) Is this a current diagnosis for this admission?: No Plan: 06/16/2020-patient has history of chronic essential hypertension taking Lasix, lisinopril/hydrochlorothiazide at home. Plan is to continue the blood pressure medications during the hospital stay. His blood pressure in the ER is 122/86. 06/17/2020-blood pressure this morning is 112/71. To discontinue hydrochlorothiazide. Discontinue Cardizem drip at this time. 06/18/2020-blood pressure today is 122/60. Stable. (6) Diabetes Qualifiers: Diabetes mellitus type: type 2 Is this a current diagnosis for this admission?: No Plan: 06/16/2020-patient has history of type 2 diabetes mellitus. Latest blood sugar is 180. To hold metformin and to continue glipizide. Compliance with medications advised. 06/17/2020-latest blood sugar is 137. Plan is to continue insulin sliding scale coverage before meals and at bedtime. - Time Anticipated Discharge Disposition: Home, Self Care Anticipated Discharge Timeframe: within 72 hours
--- NOTE | 2020-06-18 09:26 | RADIOLOGY REPORT (SQ) ---
EXAM DESCRIPTION: CHEST 2 VIEWS IMAGES COMPLETED DATE/TIME: 06/18/2020 8:48 am REASON FOR STUDY: plural effuison COMPARISON: 06/16/2020 EXAM PARAMETERS: NUMBER OF VIEWS: two views TECHNIQUE: Digital Frontal and Lateral radiographic views of the chest acquired. RADIATION DOSE: NA LIMITATIONS: none FINDINGS: LUNGS AND PLEURA: Persistent right pleural effusion. Basilar opacities. MEDIASTINUM AND HILAR STRUCTURES: No masses or contour abnormalities. HEART AND VASCULAR STRUCTURES: Heart enlarged with mild vascular congestion. BONES: Sternal wires. HARDWARE: None in the chest. OTHER: No other significant finding. IMPRESSION: Persistent mild vascular congestion. Stable right pleural effusion. TECHNICAL DOCUMENTATION: JOB ID: [id number] 2010 [employer]- All Rights Reserved Reading location - IP/workstation name: [email or web address]
[2020-06-18] MEDS ORDERED: DIGOXIN INJ 0.5 MG/2 ML AMPULE IV ONE (09:30)
[2020-06-18 09:36] LABS: INTERNATIONAL RATION (INR) 2.87
[2020-06-18] MEDS: AZITHROMYCIN 500 MG in DEXTROSE 5%-WATER 250 ML IV SCH (09:53)
[2020-06-18] MEDS: FAMOTIDINE 20 MG TABLET PO SCH ×2 (09:54→22:21)
[2020-06-18] MEDS: ISOSORBIDE MONONITRATE 60 MG TAB.ER.24H PO SCH (09:54)
[2020-06-18] MEDS: TAMSULOSIN HCL 0.4 MG CAP.SR.24H PO SCH (09:54)
[2020-06-18] MEDS: LISINOPRIL 10 MG TABLET PO SCH (09:54)
[2020-06-18] MEDS: MULTIVITAMIN TABLET PO SCH (09:54)
[2020-06-18] MEDS: GLIPIZIDE XL 5 MG TAB.ER.24 PO SCH (09:55)
[2020-06-18] MEDS: CEFTRIAXONE 1 GM/D5W RTU 1 GM/50 ML RTUPB IV SCH (12:07)
[2020-06-18] MEDS ORDERED: METOPROLOL TARTRATE 25 MG TABLET PO ONE (14:34)
[2020-06-18] MEDS ORDERED: (PENDING PHARMACY ID) (Warfarin Sodium 2 MG) PO SCH (18:00)
--- NOTE | 2020-06-18 19:23 | EKG REPORT ---
SEVERITY:- ABNORMAL ECG - SINUS TACHYCARDIA FIRST DEGREE AV BLOCK RBBB AND LPFB RATE RELATED ST DEPRESSION VS. ISCHEMIA : Confirmed by: Abundio Miles MD 18-Jun-2020 19:22:02
--- NOTE | 2020-06-18 22:44 | Progress Note ---
Provider Note Provider Note: Cardiology PROGRESS NOTE by Dr. Staci Rust on 06/18/2020. SUBJECTIVE: Patient denies any chest pain or discomfort. Continues to be in atrial fibrillation. Last night his heart rate went up to 120 and was said to be in sinus tachycardia. But the EKG shows that the patient is in atrial flutter. His drip was increased to 15 mg/h of Cardizem infusion. At present the patient's heart rate is much better is in the 110s. The patient was given digoxin 0.25 mg IV push since his dig level was up therapeutic. The heart rate did come down and the Cardizem infusion has been decreased to 7.5 mg/h. The plan is to increase the beta-yasmeen and to stop the patient's Cardizem drip. Also the patient most likely will have his right inguinal hernia surgery on probably Friday. The patient's INR is 2.85. Even though it is now therapeutic we will continue to hold the Coumadin in anticipation of the patient's right inguinal surgery. The patient has no anginal symptoms. There is no TIA CVA symptoms. His cough is improved although is still is producing greenish sputum on coughing. His chest x-ray also read as stable pleural effusions by the official reading my interpretation is that there is improvement in the right pleural effusion and in the infiltrates on the right lower lobe. PHYSICAL EXAMINATION: The patient is well-built and well-nourished in no acute distress. Selected Entries 06/18/20 06/18/20 06/18/20 13:00 13:04 15:00 Heart Rate ( 104 Monitors) Respiratory 18 Rate Blood Pressure 108/73 110/71 Blood Pressure 84 Mean O2 Sat by Pulse 99 Oximetry Oxygen Delivery Room Air Method O2 Sat by Pulse 98 Oximetry by Telemetry Arrhythmia Afib Rhythm Status 06/18/20 15:09 Heart Rate ( Monitors) Respiratory 15 Rate Blood Pressure Blood Pressure Mean O2 Sat by Pulse Oximetry Oxygen Delivery Method O2 Sat by Pulse Oximetry by Telemetry Arrhythmia Rhythm Status HEAD: Is atraumatic normocephalic. EYES: Pupils are equal round regular reactive to light and accommodation. Extraocular movements are normal. There is no conjunctival pallor. There is no scleral icterus. EARS: Tympanic membranes are intact. External auditory canals are clear. NOSE: There is no deviated nasal septum. There is no inflammation nasal mucous membrane. MOUTH: There is no redness of the oropharynx. There is no exudates. There is no bleeding from the gums. THROAT: There is no redness of the oropharynx. There is no exudates in the throat. SKIN: There is no petechia or ecchymosis. There is no skin lesions or skin rashes. NECK: Is supple. There is no JVD. Carotids are equal there is no bruit. There is no lymphadenopathy. There is no goiter.. There is no accessory muscle respiration use. Trachea central. LUNGS: There is dullness and absent breath sounds in the right lower lobe. The rest of the lungs are clear without any rhonchi rales or wheezing. HEART: S1-S2 is heard. S1 is of variable intensity. There is no S3 gallop. There is no S4 gallop.There is systolic murmur left sternal border and the apex there is no rub. ABDOMEN: Is soft. Nontender. There is no hepatosplenomegaly. Bowel sounds are well heard. There is a right inguinal hernia, and seems to be uncomplicated. EXTREMITIES: Femorals are well felt. There is no femoral bruits. Leg pulses well felt. There is no pedal edema. There is no DVT or cellulitis. There is no calf tenderness. There is no cyanosis or clubbing. MULTIFOLD OPERATOR: The patient is conscious awake alert oriented x3 with no focal deficits. PSYCHIATRIC: The patient judgment insight are intact his affect is normal. Labs- All tests 24 hr 06/18/20 06/18/20 06/18/20 06:13 06:13 06:13 WBC 7.7 RBC 4.34 L Hgb 13.3 L Hct 38.8 MCV 89 MCH 30.5 MCHC 34.2 RDW 13.5 Plt Count 138 L Lymph % (Auto) 20.0 Mcleod % (Auto) 9.0 Eos % (Auto) 7.9 H Baso % (Auto) 0.8 Absolute Neuts (auto) 4.8 Absolute Lymphs (auto) 1.5 Absolute Monos (auto) 0.7 Absolute Eos (auto) 0.6 Absolute Basos (auto) 0.1 Seg Neutrophils % 62.3 PT INR Sodium 141.1 Potassium 3.9 Chloride 108 H Carbon Dioxide 23 Anion Gap 10 BUN 24 H Creatinine 1.15 Est GFR ( Amer) > 60 Est GFR (MDRD) Non-Af > 60 Glucose 113 H POC Glucose Calcium 8.8 Magnesium 2.0 Total Bilirubin 0.8 Direct Bilirubin 0.4 Neonat Total Bilirubin Not Reportable Neonat Direct Bilirubin Not Reportable Neonat Indirect Bili Not Reportable AST 28 ALT 15 Alkaline Phosphatase 77 Total Protein 6.1 L Albumin 3.2 L TSH 5.19 H Digoxin 0.67 L 06/18/20 06/18/20 06/18/20 07:54 09:05 11:39 WBC RBC Hgb Hct MCV MCH MCHC RDW Plt Count Lymph % (Auto) Mcleod % (Auto) Eos % (Auto) Baso % (Auto) Absolute Neuts (auto) Absolute Lymphs (auto) Absolute Monos (auto) Absolute Eos (auto) Absolute Basos (auto) Seg Neutrophils % PT 30.0 H INR 2.87 Sodium Potassium Chloride Carbon Dioxide Anion Gap BUN Creatinine Est GFR ( Amer) Est GFR (MDRD) Non-Af Glucose POC Glucose 122 H 259 H Calcium Magnesium Total Bilirubin Direct Bilirubin Neonat Total Bilirubin Neonat Direct Bilirubin Neonat Indirect Bili AST ALT Alkaline Phosphatase Total Protein Albumin TSH Digoxin 06/18/20 06/18/20 16:11 21:07 WBC RBC Hgb Hct MCV MCH MCHC RDW Plt Count Lymph % (Auto) Mcleod % (Auto) Eos % (Auto) Baso % (Auto) Absolute Neuts (auto) Absolute Lymphs (auto) Absolute Monos (auto) Absolute Eos (auto) Absolute Basos (auto) Seg Neutrophils % PT INR Sodium Potassium Chloride Carbon Dioxide Anion Gap BUN Creatinine Est GFR ( Amer) Est GFR (MDRD) Non-Af Glucose POC Glucose 75 84 Calcium Magnesium Total Bilirubin Direct Bilirubin Neonat Total Bilirubin Neonat Direct Bilirubin Neonat Indirect Bili AST ALT Alkaline Phosphatase Total Protein Albumin TSH Digoxin Chest X-Ray 06/16/20 09:15 IMPRESSION: Volume loss and consolidation right lower lobe with fullness of the right hilum and small right pleural effusion. Postobstructive pneumonia from right hilar mass may be present. Consider CT chest for followup. Few Concepcion lines at the left lung base, question interstitial edema or fluid overload. 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 Chest/Abdomen CTA 06/16/20 10:44 IMPRESSION: 1. Enlarged left lobe of the thyroid gland which extends substernally. 2. Moderate to large right-sided pleural effusions some a which is loculated superiorly. 3. Right lower lobe atelectasis or pneumonia. 4. Cardiomegaly. 5. No pulmonary emboli. Thyroid Ultrasound 06/17/20 00:00 IMPRESSION: Nodule 1 right lobe: Follow-up at 1, 3, 5 years Nodule 1 left lobe: No follow-up necessary Nodule 2 left lobe: FNA recommended. Chest X-Ray 06/18/20 07:00 IMPRESSION: Persistent mild vascular congestion. Stable right pleural effusion. My interpretation is that there is improvement in the right pleural effusion and the right lower lobe infiltrate. IMPRESSION/RECOMMENDATION: 1. Atrial flutter/fibrillation with rapid ventricular response. The heart rate is much improved although not optimally controlled. INR still pretty high. Will give an extra dose of digoxin and decrease the Cardizem to 10 mg/h. 2. Right lower lobe pneumonia with loculated right lower lobe effusion: Agree with antibiotics. 3. Coronary artery disease:. History of coronary bypass graft surgery patient without any anginal symptoms. 4. Hypertension: Blood pressure appears to be well controlled at present. 5. Diabetes mellitus type 2: None insulin requiring. Continue antidiabetic medication and Accu-Cheks as per protocol. 6. Hyperlipidemia: Continue statins. 7. History of mitral valve replacement with porcine valve. Appears to be functioning normally. 8. Substernal thyroid. Does not appear to be any kind of causing any problems. Thyroid function tests are normal. 9. Right inguinal hernia for possible surgery. 10. Preoperative cardiac risk assessment.: THE PATIENT WILL BE ACCEPTABLE CARDIAC RISK FOR RIGHT INGUINAL HERNIORRHAPHY. Medications reviewed. Medications adjusted. Medical decision making is of high complexity. Medical regimen and management plan discussed with attending provider on the case. Medical decision making is of high complexity. 60 minutes spent with patient with more than 50% of time spent in direct patient care. Will follow
[2020-06-19] MEDS: METOPROLOL TARTRATE 25 MG TABLET PO SCH (05:14)
[2020-06-19] MEDS ORDERED: DIGOXIN INJ 0.5 MG/2 ML AMPULE IV ONE (06:45)
[2020-06-19 06:50] LABS: INTERNATIONAL RATION (INR) 2.41; PROTHROMBIN TIME 26.3 SEC (11.4-15.4)
[2020-06-19] MEDS: INSULIN REG, HUMAN 100 UNIT/ML 3 ML VIAL (PYX) SUBCUT SCH ×4 (07:51→22:01)
--- NOTE | 2020-06-19 08:26 | PDOC PROGRESS REPORT ---
Subjective Progress Note for:: 06/19/20 Subjective:: 80 year old male with history of atrial fibrillation, mitral valve replacement with pig valve on warfarin, triple-vessel bypass, diabetes, hypertension, hypercholesteremia came to the emergency with complaining of increasing shortness of breath. Also to the cough with a greenish sputum. He denies any fevers. Denies any nausea vomiting diarrhea or abdominal pain. Work-up in the ER shows A. fib with RVR was started on Cardizem drip then was given digoxin. CT of the chest indicate you have right-sided pleural effusion moderate-sized pleural effusion with parapneumonic effusion. Start IV antibiotic therapy. Medical consult was called for admission. INR in the ER is 3.74. 06/17/2020-patient was on Cardizem drip last night. He was given metoprolol 2.5 mg IV 1 dose for high heart rate. Blood pressures on the softer side he was given a 500 cc of normal saline bolus. I discussed the case with Dr. Morgan he wants to stop hydrochlorothiazide and to give a digoxin 0.25 mg 1 dose. pt is comfortably in the bed communicating well. Not in distress. 06/18/2020-patient is comfortably in the chair eating breakfast. Still in A. fib. On Cardizem drip received digoxin IV push last night. Digoxin level this morning is 0.67. Dr. Morgan is following the patient. Follow-up chest x-ray is pending. 06/19/20-patient is comfortably in the bed eating breakfast. Not in distress. INR today is 2.41. To hold Coumadin as per Dr. Morgan. Discussed the plan of care with the patient about right sided moderate pleural effusion, thyroid mass he wants to wait and think about thoracentesis, thyroid gland biopsy. Dr. Morgan spoke to Dr. Thompson about hernia surgery the plan is to arrange for a hernia repair in 24 hours to 48 hours. Reason For Visit: ATRIAL FIB Physical Exam Vital Signs: Temp Pulse Resp BP Pulse Ox 97.5 F 122 H 18 123/80 99 06/19/20 07:36 06/19/20 07:36 06/19/20 07:36 06/19/20 07:36 06/19/20 07:36 Intake & Output 06/18/20 06/19/20 06/20/20 06:59 06:59 06:59 Intake Total 1379 1228 Output Total 800 725 Balance 579 503 Weight 101.1 kg 99.9 kg General appearance: PRESENT: no acute distress, cooperative Head exam: PRESENT: atraumatic Eye exam: PRESENT: PERRLA Mouth exam: PRESENT: moist, tongue midline Teeth exam: PRESENT: poor dentation Neck exam: ABSENT: carotid bruit, JVD, lymphadenopathy, thyromegaly Respiratory exam: PRESENT: decreased breath sounds Cardiovascular exam: PRESENT: RRR. ABSENT: diastolic murmur, rubs, systolic murmur Pulses: PRESENT: normal dorsalis pedis pul GI/Abdominal exam: PRESENT: normal bowel sounds, soft. ABSENT: distended, guarding, mass, organolmegaly, rebound, tenderness Rectal exam: PRESENT: deferred Extremities exam: PRESENT: full ROM. ABSENT: calf tenderness, clubbing, pedal edema Neurological exam: PRESENT: alert, awake, oriented to person, oriented to place, oriented to time, oriented to situation, CN II-XII grossly intact. ABSENT: motor sensory deficit Psychiatric exam: PRESENT: appropriate affect, normal mood. ABSENT: homicidal ideation, suicidal ideation Skin exam: PRESENT: dry, intact, warm. ABSENT: cyanosis, rash Results Laboratory Results: 06/18/20 06:13 06/18/20 06:13 06/16/20 06/16/20 06/16/20 09:20 09:20 12:07 Creatine Kinase 49 L CK-MB (CK-2) 1.19 Troponin I 0.015 0.015 NT-Pro-B Natriuret Pep 06/16/20 06/16/20 06/17/20 14:50 19:31 02:15 Creatine Kinase CK-MB (CK-2) Troponin I 0.019 0.041 0.076 NT-Pro-B Natriuret Pep 06/17/20 04:55 Creatine Kinase CK-MB (CK-2) Troponin I NT-Pro-B Natriuret Pep 8040 H Impressions: Chest/Abdomen CTA 06/16/20 10:44 IMPRESSION: 1. Enlarged left lobe of the thyroid gland which extends substernally. 2. Moderate to large right-sided pleural effusions some a which is loculated superiorly. 3. Right lower lobe atelectasis or pneumonia. 4. Cardiomegaly. 5. No pulmonary emboli. Thyroid Ultrasound 06/17/20 00:00 IMPRESSION: Nodule 1 right lobe: Follow-up at 1, 3, 5 years Nodule 1 left lobe: No follow-up necessary Nodule 2 left lobe: FNA recommended. Chest X-Ray 06/18/20 07:00 IMPRESSION: Persistent mild vascular congestion. Stable right pleural effusion. Assessment and Plan - Diagnosis (1) Atrial flutter with rapid ventricular response Is this a current diagnosis for this admission?: Yes Plan: 06/16/2020-patient admitted for A. fib with RVR. Cardiology consult was requested. Patient was started on Cardizem drip and also given loading dose of digoxin. To do the serial troponins. RS 3.74 to hold Coumadin at this time. GI prophylaxis initiated. Restarted on metoprolol 25 mg p.o. twice daily. 06/17/2020-patient admitted with atrial fibrillation with RVR. On Cardizem drip. Heart rate is still slightly elevated to give digoxin 0.25 mg 1 dose. To stop hydrochlorothiazide. Creatinine is improved. Latest echocardiogram shows EF of around 55%. INR is 3.5 to continue to hold Coumadin at this time. 06/18/20-patient is still in A. fib with RVR. On Cardizem drip. Received digoxin last night. Digoxin level is 0.67 today. Cardiology on board. Today's INR is pending. 06/19/2020-patient is still in A. fib with RVR. Off the diltiazem drip. MRI managing the case. Patient is going to receive digoxin this morning. (2) Right lower lobe pneumonia Is this a current diagnosis for this admission?: Yes Plan: 06/16/2020-patient has right lower lobe pneumonia. Blood cultures requested patient start on IV Rocephin and Zithromax. Patient may need right-sided thoracentesis diagnostic thoracentesis. To continue IV Rocephin and Zithromax at this time. 06/17/2020-patient admitted with right lower lobe pneumonia. Afebrile. Blood cultures still pending. To continue IV Rocephin, IV Zithromax at this time. To consider right-sided diagnostic thoracentesis on Friday. 06/18/2020-blood cultures are negative so far. Afebrile. WBC count within normal limits. Plan is to continue IV Rocephin and Zithromax at this time. 06/19/2020-patient is on Zithromax, Rocephin blood cultures are negative. Chest x-ray shows moderate right pleural effusion patient is reluctant to have thoracentesis at this time. (3) Loculated pleural effusion Is this a current diagnosis for this admission?: Yes Plan: 06/16/2020-patient came in with complaints of shortness of breath CT scan shows loculated right-sided pleural effusion. Started on IV antibiotic therapy. Patient may need a diagnostic thoracentesis on Friday. 06/17/20-pulse ox is 95% on 2 L. To continue IV antibiotic therapy at this time. To continue nebulizer treatment. 06/18/2020-pulse ox today is 96% on 3 L. Repeat chest x-ray is pending today. Comfortably in the chair eating breakfast. Not in distress. (4) Mitral valve replaced Is this a current diagnosis for this admission?: No Plan: 06/16/2020-patient has history of wall replacement with pig valve. Patient is on Coumadin for atrial fibrillation. INR 3.74. To closely monitor the PT/INR on daily basis. 06/17/2020-patient has history of porcine mitral valve replacement on Coumadin. INR is 3.5. To hold Coumadin until the INR comes down to less than 3. 06/18/2020-INR is pending today. Goal is to keep the INR between 2-3. 06/19/2020-INR today is 2.41. To continue to hold Coumadin and recheck PT/INR tomorrow. (5) HTN (hypertension) Is this a current diagnosis for this admission?: No Plan: 06/16/2020-patient has history of chronic essential hypertension taking Lasix, lisinopril/hydrochlorothiazide at home. Plan is to continue the blood pressure medications during the hospital stay. His blood pressure in the ER is 122/86. 06/17/2020-blood pressure this morning is 112/71. To discontinue hydrochlorothiazide. Discontinue Cardizem drip at this time. 06/18/2020-blood pressure today is 122/60. Stable. 06/19/2020-blood pressure this morning is 108/70. Patient is complaining of swelling of the lower extremities to give a small dose of IV Lasix this morning. (6) Diabetes Qualifiers: Diabetes mellitus type: type 2 Is this a current diagnosis for this admission?: No Plan: 06/16/2020-patient has history of type 2 diabetes mellitus. Latest blood sugar is 180. To hold metformin and to continue glipizide. Compliance with medications advised. 06/17/2020-latest blood sugar is 137. Plan is to continue insulin sliding scale coverage before meals and at bedtime. (7) Thyroid mass Is this a current diagnosis for this admission?: Yes Plan: 06/19/20-ultrasound of the thyroid indicated above multinodular goiter. And is reluctant to have a thyroid biopsy at this time. - Time Anticipated Discharge Disposition: Home, Self Care Anticipated Discharge Timeframe: within 48 hours
[2020-06-19] MEDS ORDERED: FUROSEMIDE INJ/PF 20 MG/2 ML SDV IV ONE (09:00)
[2020-06-19] MEDS: TAMSULOSIN HCL 0.4 MG CAP.SR.24H PO SCH (09:31)
[2020-06-19] MEDS: MULTIVITAMIN TABLET PO SCH (09:31)
[2020-06-19] MEDS: ISOSORBIDE MONONITRATE 60 MG TAB.ER.24H PO SCH (09:32)
[2020-06-19] MEDS: GLIPIZIDE XL 5 MG TAB.ER.24 PO SCH (09:32)
[2020-06-19] MEDS: FAMOTIDINE 20 MG TABLET PO SCH ×2 (09:32→22:01)
[2020-06-19] MEDS: LISINOPRIL 10 MG TABLET PO SCH (09:32)
[2020-06-19] MEDS: AZITHROMYCIN 500 MG in DEXTROSE 5%-WATER 250 ML IV SCH (09:33)
[2020-06-19] MEDS: CEFTRIAXONE 1 GM/D5W RTU 1 GM/50 ML RTUPB IV SCH (12:14)
[2020-06-19] MEDS ORDERED: METOPROLOL TARTRATE 25 MG TABLET PO ONE (13:00)
[2020-06-19] MEDS ORDERED: NORMAL SALINE 250 ML IV PRN ×2 (13:06)
[2020-06-19] MEDS ORDERED: FUROSEMIDE INJ/PF 40 MG/4 ML SDV IV ONE (13:21)
--- NOTE | 2020-06-19 13:28 | PDOC CONSULTATION ---
Consultation Consult Date: 06/19/20 Attending physician:: JANELLE PATEL Provider Consulted: JUDITH THOMPSON Consult reason:: Right inguinal hernia History of Present Illness Admission Date/PCP: 06/16/20 14:21 OZ DAVIDSON PA-C History of Present Illness: VALERIANO HILLIARD is a 80 year old male Patient well-known to me, known partial incarcerated right inguinal hernia, tentatively scheduled for operative repair, awaiting cardiac clearance. Patient admitted over the weekend for A. fib and RVR, minimally symptomatic. Work-up consisted of multiple imaging studies, holding of Coumadin, Cardizem drip. Patient has no significant complaints is ambulating in his room. He like his hernia fixed. No Covid test obtained Past Medical History Cardiac Medical History: Reports: Coronary Artery Disease, Hyperlipidema, Hypertension - ON MEDS, Other - Valve replacement Pulmonary Medical History: Denies: Asthma, Bronchitis, Chronic Obstructive Pulmonary Disease (COPD), Pneumonia Neurological Medical History: Denies: Seizures Endocrine Medical History: Reports: Diabetes Mellitus Type 2 Musculoskeltal Medical History: Reports: Arthritis Psychiatric Medical History: Denies: Depression Hematology: Denies: Anemia Past Surgical History Past Surgical History: History of coronary artery bypass grafting, mitral valve replacement Past Surgical History: Reports: Appendectomy, Coronary Artery Bypass Graft, Orth opedic Surgery Social History Lives with: Family Smoking Status: Former Smoker Cigarettes Packs Per Day: 1 Electronic Cigarette use?: No Last Time Smoked: 1969 Frequency of Alcohol Use: None Hx Recreational Drug Use: No Drugs: None Hx Prescription Drug Abuse: No - Advance Directive Resuscitation Status: Full Code Family History Family History: None, Reviewed & Not Pertinent Parental Family History Reviewed: No Children Family History Reviewed: No Sibling(s) Family History Reviewed.: No Medication/Allergy Home Medications: Lisinopril/Hydrochlorothiazide [Lisinopril-Hctz 20-12.5 mg Tab] 1 each PO DAILY 07/06/14 Glipizide [Glipizide Xl] 10 mg PO DAILY 06/16/20 Isosorbide Mononitrate [Imdur 60 mg Tablet.er] 60 mg PO DAILY 06/16/20 Metoprolol Succinate [Toprol Xl 25 mg Tab.sr] 25 mg PO BID 06/16/20 Multivitamin [Tab-A-Peter] 1 each PO DAILY 06/16/20 Nitroglycerin [Nitrostat 0.4 mg (1/150 Gr) Tabs 25/Bottle] 1 tab SL Q5MP PRN 06/16/20 Pravastatin Sodium [Pravachol] 20 mg PO DAILY 06/16/20 Tamsulosin HCl [Flomax 0.4 mg Cap.sr] 0.4 mg PO DAILY 06/16/20 Vit C/Vit E AC/Lut/Copper/Zinc [Preservision Lutein Softgel] 1 each PO DAILY 06/16/20 Warfarin Sodium [Jantoven 2 mg Tablet] 2 mg PO QPM 06/16/20 Allergies/Adverse Reactions: No Known Allergies Allergy (Verified 06/16/20 09:27) Review of Systems Constitutional: PRESENT: as per HPI Eyes: ABSENT: visual disturbances Ears: ABSENT: hearing changes Cardiovascular: PRESENT: other - Patient has a resting tachycardia, chronic Gastrointestinal: PRESENT: other - Denies nausea vomiting or difficulty moving bowels Musculoskeletal: PRESENT: other - No assist device used Psychiatric: ABSENT: anxiety, depression, homidical ideation, suicidal ideation Physical Exam Vital Signs: Temp Pulse Resp BP Pulse Ox 97.4 F 119 H 18 113/87 H 97 06/19/20 11:39 06/19/20 11:39 06/19/20 11:39 06/19/20 11:39 06/19/20 11:39 Intake & Output 06/18/20 06/19/20 06/20/20 06:59 06:59 06:59 Intake Total 1379 1228 300 Output Total 800 725 Balance 579 503 300 Weight 101.1 kg 99.9 kg General appearance: PRESENT: no acute distress Head exam: PRESENT: other - Rhinophyma Eye exam: PRESENT: EOMI Neck exam: PRESENT: full ROM Respiratory exam: PRESENT: other - Decreased breath sounds right base Cardiovascular exam: PRESENT: tachycardia Pulses: PRESENT: normal carotid pulses, normal radial pulses, normal femoral pulses GI/Abdominal exam: PRESENT: other - Abdomen soft; incompletely reducible right inguinal hernia; no obvious left inguinal hernia Rectal exam: PRESENT: deferred Extremities exam: PRESENT: full ROM Musculoskeletal exam: PRESENT: full ROM Neurological exam: PRESENT: oriented to person, oriented to place, oriented to time, oriented to situation, other - Ambulates without assist device Psychiatric exam: PRESENT: appropriate affect Results Laboratory Results: 06/18/20 06:13 06/18/20 06:13 06/16/20 06/16/20 06/16/20 09:20 09:20 12:07 Creatine Kinase 49 L CK-MB (CK-2) 1.19 Troponin I 0.015 0.015 NT-Pro-B Natriuret Pep 06/16/20 06/16/20 06/17/20 14:50 19:31 02:15 Creatine Kinase CK-MB (CK-2) Troponin I 0.019 0.041 0.076 NT-Pro-B Natriuret Pep 06/17/20 04:55 Creatine Kinase CK-MB (CK-2) Troponin I NT-Pro-B Natriuret Pep 8040 H Impressions: Chest/Abdomen CTA 06/16/20 10:44 IMPRESSION: 1. Enlarged left lobe of the thyroid gland which extends substernally. 2. Moderate to large right-sided pleural effusions some a which is loculated superiorly. 3. Right lower lobe atelectasis or pneumonia. 4. Cardiomegaly. 5. No pulmonary emboli. Thyroid Ultrasound 06/17/20 00:00 IMPRESSION: Nodule 1 right lobe: Follow-up at 1, 3, 5 years Nodule 1 left lobe: No follow-up necessary Nodule 2 left lobe: FNA recommended. Chest X-Ray 06/18/20 07:00 IMPRESSION: Persistent mild vascular congestion. Stable right pleural effusion. Assessment & Plan - Diagnosis (1) Irreducible right inguinal hernia Is this a current diagnosis for this admission?: Yes Plan: Impression: Stable, partially incarcerated right inguinal hernia is an 80 -year-old male, acceptable functional status with multiple cardiovascular and respiratory conditions including hypertension, mild cardiomegaly, status post CABG, mitral valve replacement, pharmacologic anticoagulation on Coumadin, and right parapneumonic effusion, occult pneumonia versus sequelae of mild CHF. Patient's rate intermittently controlled on Cardizem drip, digoxin, Lopressor. Coumadin held for 4 days. Recent echocardiogram according to Dr. Rust demonstrates ejection fraction of 55%. Recommendations: I spoke with Dr. Nikita Slaeh, hospitalist, Dr. Rust, park warden and Dr. Tsai, anesthesiologist about this patient. Collectively we have agreed to reinitiate the Cardizem drip for rate control, and transfusion of 2 units of FFP to bring his PT/INR in. 2. Regarding the right parapneumonic effusion, it appears chronic, and not hindering patient's functional status. Therefore the consensus is to leave as is. 3. We will obtain rapid Covid test 4. We will keep patient n.p.o. after midnight, tentatively set patient up for right inguinal herniorrhaphy tomorrow, June [address] Thompson (2) Status post aorto-coronary artery bypass graft Is this a current diagnosis for this admission?: Yes (3) Anticoagulated on Coumadin Is this a current diagnosis for this admission?: Yes (4) Atrial flutter with rapid ventricular response Is this a current diagnosis for this admission?: Yes (5) Diabetes Qualifiers: Diabetes mellitus type: type 2 Is this a current diagnosis for this admission?: No (6) HTN (hypertension) Is this a current diagnosis for this admission?: No (7) Mitral valve replaced Is this a current diagnosis for this admission?: No (8) Right lower lobe pneumonia Is this a current diagnosis for this admission?: Yes (9) Thyroid mass Is this a current diagnosis for this admission?: Yes - Time Time Spent: 50 to 70 Minutes Smoking Cessation Education: over 10 minutes Medications reviewed and adjusted accordingly: Yes Anticipated discharge: Home Anticipated DC Timeframe: within 72 hours
[2020-06-19] MEDS: DILTIAZEM HCL/D5W 125 MG/125 ML RTUINJ IV PRN (13:49)
--- NOTE | 2020-06-19 17:12 | Progress Note ---
Provider Note Provider Note: CARDIOLOGY PROGRESS NOTE by Dr. Staci Cabrera on 06/19/2020. OBJECTIVE: Patient states his cough is much improved. His heart rate is fairly well controlled but still goes up and down from anywhere from 72 110. He most likely will be getting his hernia surgery tomorrow if his INR comes within normal limits. Orders have been written to give the patient 2 units of fresh frozen plasma. We will also place the patient IV Cardizem. He denies any chest pain discomfort. There is no shortness of breath there is no PND orthopnea or leg edema. There is no ventricular arrhythmias seen on the monitor. Occult he continues to be in atrial fibrillation PHYSICAL EXAMINATION: The patient is well-built and well-nourished in no acute distress. Selected Entries 06/19/20 16:26 Temperature 97.8 F Temperature Oral Source Pulse Rate 74 Respiratory 18 Rate Blood Pressure 142/57 H [Left Upper Arm ] Blood Pressure 85 Mean [Left Upper Arm] Blood Pressure Sitting Position [Left Upper Arm] O2 Sat by Pulse 99 Oximetry Oxygen Delivery Nasal Cannula Method ( includes room air) Oxygen Flow 2 Rate HEAD: Is atraumatic normocephalic. EYES: Pupils are equal round regular reactive to light and accommodation. Extraocular movements are normal. There is no conjunctival pallor. There is no scleral icterus. EARS: Tympanic membranes are intact. External auditory canals are clear. NOSE: There is no deviated nasal septum. There is no inflammation nasal mucous membrane. MOUTH: There is no redness of the oropharynx. There is no exudates. There is no bleeding from the gums. THROAT: There is no redness of the oropharynx. There is no exudates in the throat. SKIN: There is no petechia or ecchymosis. There is no skin lesions or skin rashes. NECK: Is supple. There is no JVD. Carotids are equal there is no bruit. There is no lymphadenopathy. There is no goiter.. There is no accessory muscle respiration use. Trachea central. LUNGS: There is dullness and absent breath sounds in the right lower lobe. The rest of the lungs are clear without any rhonchi rales or wheezing. HEART: S1-S2 is heard. S1 is of variable intensity. There is no S3 gallop. There is no S4 gallop.There is systolic murmur left sternal border and the apex there is no rub. ABDOMEN: Is soft. Nontender. There is no hepatosplenomegaly. Bowel sounds are well heard. There is a right inguinal hernia, and seems to be uncomplicated. EXTREMITIES: Femorals are well felt. There is no femoral bruits. Leg pulses well felt. There is no pedal edema. There is no DVT or cellulitis. There is no calf tenderness. There is no cyanosis or clubbing. [employer] CRM DEVELOPER: The patient is conscious awake alert oriented x3 with no focal deficits. PSYCHIATRIC: The patient judgment insight are intact his affect is normal. Labs- All tests 24 hr 06/18/20 06/19/20 06/19/20 21:07 05:35 07:39 PT 26.3 H INR 2.41 POC Glucose 84 101 Blood Type 06/19/20 06/19/20 06/19/20 11:38 14:34 16:11 PT INR POC Glucose 140 H 88 Blood Type O POSITIVE Chest X-Ray 06/16/20 09:15 IMPRESSION: Volume loss and consolidation right lower lobe with fullness of the right hilum and small right pleural effusion. Postobstructive pneumonia from right hilar mass may be present. Consider CT chest for followup. Few Concepcion lines at the left lung base, question interstitial edema or fluid overload. 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 Chest/Abdomen CTA 06/16/20 10:44 IMPRESSION: 1. Enlarged left lobe of the thyroid gland which extends substernally. 2. Moderate to large right-sided pleural effusions some a which is loculated superiorly. 3. Right lower lobe atelectasis or pneumonia. 4. Cardiomegaly. 5. No pulmonary emboli. Thyroid Ultrasound 06/17/20 00:00 IMPRESSION: Nodule 1 right lobe: Follow-up at 1, 3, 5 years Nodule 1 left lobe: No follow-up necessary Nodule 2 left lobe: FNA recommended. Chest X-Ray 06/18/20 07:00 IMPRESSION: Persistent mild vascular congestion. Stable right pleural effusion. My interpretation that there is less right pleural effusion and infiltrate in the right base is much less. IMPRESSION/RECOMMENDATION: 1. Atrial flutter/fibrillation with rapid ventricular response. The heart rate is much improved although not optimally controlled. INR still pretty high. Will give an extra dose of digoxin and restart the patient on a Cardizem drip. His metoprolol has been increased to 75 mg p.o. twice daily. 2. Right lower lobe pneumonia with loculated right lower lobe effusion: Agree with antibiotics. 3. Coronary artery disease:. History of coronary bypass graft surgery patient without any anginal symptoms. 4. Hypertension: Blood pressure appears to be well controlled at present. 5. Diabetes mellitus type 2: None insulin requiring. Continue antidiabetic medication and Accu-Cheks as per protocol. 6. Hyperlipidemia: Continue statins. 7. History of mitral valve replacement with porcine valve. Appears to be functioning normally. 8. Substernal thyroid. Does not appear to be any kind of causing any problems. Thyroid function tests are normal. 9. Right inguinal hernia for possible surgery. 10. Therapeutic INR on Coumadin. Coumadin has been held. We will give the patient fresh frozen plasma so that the INR comes below 1.5 so patient can have his surgery tomorrow. 11. Preoperative cardiac risk assessment.: THE PATIENT WILL BE ACCEPTABLE CARDIAC RISK FOR RIGHT INGUINAL HERNIORRHAPHY.. Medications reviewed. Medical management and management plan discussed with attending provider and and with Dr. Thompson. Medical decision making is still of high complexity. 40 minutes spent with patient more than 50% of time spent in direct patient care. Will follow.
[2020-06-19] MEDS ORDERED: METOPROLOL TARTRATE 50 MG TABLET PO SCH (18:00)
[2020-06-19] MEDS ORDERED: METOPROLOL TARTRATE 25 MG TABLET PO SCH ×2 (18:00)
[2020-06-19 21:05] LABS: ABSOLUTE BASOPHILS # (AUTO) 0.1 10^3/uL (0.0-0.2); ABSOLUTE EOSINOPHILS # (AUTO) 0.5 10^3/uL (0.0-0.6); ABSOLUTE LYMPHOCYTES (AUTO) 1.9 10^3/uL (0.5-4.7); ABSOLUTE MONOCYTES (AUTO) 0.7 10^3/uL (0.1-1.4); ABSOLUTE NEUT (AUTO) 3.6 10^3/uL (1.7-8.2); BASOPHILS % (AUTO) 0.9 % (0-2); EOSINOPHILS % (AUTO) 7.9 % (0-6); HEMATOCRIT 35.2 % (37.9-51.0); HEMOGLOBIN 12.3 g/dL (13.5-17.0); LYMPHOCYTES % (AUTO) 27.9 % (13-45); MEAN CORPUSCULAR HEMOGLOBIN 30.7 pg (27.0-33.4); MEAN CORPUSCULAR VOLUME 88 fl (80-97); MONOCYTES % (AUTO) 10.5 % (3-13); PLATELET COUNT 144 10^3/uL (150-450); RED BLOOD COUNT 4.02 10^6/uL (4.35-5.55); RED CELL DISTRIBUTION WIDTH 13.3 % (11.5-14.0); SEGMENTED NEUTROPHILS % (AUTO) 52.8 % (42-78); TOTAL CELLS COUNTED % (AUTO) 100 %; WHITE BLOOD COUNT 6.8 10^3/uL (4.0-10.5)
[2020-06-19] MEDS: SIMVASTATIN 10 MG TABLET PO SCH (22:01)
[2020-06-20] MEDS: DILTIAZEM HCL/D5W 125 MG/125 ML RTUINJ IV PRN ×3 (03:31→21:57)
[2020-06-20] MEDS ORDERED: CEFAZOLIN 1 GM/D5W RTU 1 GM/50 ML RTUPB IV PRN (05:00)
[2020-06-20 06:47] LABS: ABSOLUTE BASOPHILS # (AUTO) 0.1 10^3/uL (0.0-0.2); ABSOLUTE EOSINOPHILS # (AUTO) 0.5 10^3/uL (0.0-0.6); ABSOLUTE LYMPHOCYTES (AUTO) 1.4 10^3/uL (0.5-4.7); ABSOLUTE MONOCYTES (AUTO) 0.6 10^3/uL (0.1-1.4); ABSOLUTE NEUT (AUTO) 3.8 10^3/uL (1.7-8.2); BASOPHILS % (AUTO) 0.8 % (0-2); EOSINOPHILS % (AUTO) 8.1 % (0-6); HEMATOCRIT 38.1 % (37.9-51.0); LYMPHOCYTES % (AUTO) 21.4 % (13-45); MEAN CORPUSCULAR HGB CONC 34.1 g/dL (32.0-36.0); MEAN CORPUSCULAR VOLUME 88 fl (80-97); MONOCYTES % (AUTO) 9.9 % (3-13); PLATELET COUNT 132 10^3/uL (150-450); RED BLOOD COUNT 4.32 10^6/uL (4.35-5.55); RED CELL DISTRIBUTION WIDTH 13.3 % (11.5-14.0); SEGMENTED NEUTROPHILS % (AUTO) 59.8 % (42-78); TOTAL CELLS COUNTED % (AUTO) 100 %; WHITE BLOOD COUNT 6.4 10^3/uL (4.0-10.5)
[2020-06-20 07:03] LABS: ALBUMIN 3.1 g/dL (3.5-5.0); ALKALINE PHOSPHATASE 65 U/L (38-126); ANION GAP 10 (5-19); ASPARTATE AMINO TRANSFERASE 40 U/L (17-59); BILIRUBIN,DIRECT 0.2 mg/dL (0.0-0.4); BILIRUBIN,TOTAL 0.9 mg/dL (0.2-1.3); BLOOD UREA NITROGEN 21 mg/dL (7-20); CALCIUM 8.9 mg/dL (8.4-10.2); CARBON DIOXIDE 24 mmol/L (22-30); CHLORIDE 107 mmol/L (98-107); GLUCOSE 108 mg/dL (75-110); POTASSIUM 3.7 mmol/L (3.6-5.0); TOTAL PROTEIN 5.9 g/dL (6.3-8.2)
[2020-06-20 07:09] LABS: INTERNATIONAL RATION (INR) 1.79; PROTHROMBIN TIME 20.9 SEC (11.4-15.4)
[2020-06-20] MEDS: INSULIN REG, HUMAN 100 UNIT/ML 3 ML VIAL (PYX) SUBCUT SCH ×4 (09:05→22:06)
[2020-06-20] MEDS ORDERED: DIGOXIN INJ 0.5 MG/2 ML AMPULE IV ONE (10:30)
--- NOTE | 2020-06-20 10:47 | PDOC PROGRESS REPORT ---
Subjective Progress Note for:: 06/20/20 Reason For Visit: ATRIAL FIB Hospital day 5, Coumadin held; received 2 units of FFP yesterday. A.m. PT 20.9. Heart rate in the 120s despite being on Cardizem drip Physical Exam Vital Signs: Temp Pulse Resp BP Pulse Ox 97.9 F 125 H 18 118/83 98 06/20/20 03:13 06/20/20 10:00 06/20/20 03:13 06/20/20 10:00 06/20/20 10:27 Intake & Output 06/19/20 06/20/20 06/21/20 06:59 06:59 06:59 Intake Total 1228 2517 Output Total 725 3515 Balance 503 -998 Weight 99.9 kg 87.8 kg General appearance: PRESENT: no acute distress Cardiovascular exam: PRESENT: tachycardia Results Laboratory Results: 06/20/20 05:59 06/20/20 05:59 06/19/20 06/19/20 06/20/20 14:34 20:48 05:59 WBC 6.8 6.4 RBC 4.02 L 4.32 L Hgb 12.3 L 13.0 L Hct 35.2 L 38.1 MCV 88 88 MCH 30.7 30.0 MCHC 35.0 34.1 RDW 13.3 13.3 Plt Count 144 L 132 L Seg Neutrophils % 52.8 59.8 Sodium Potassium Chloride Carbon Dioxide Anion Gap BUN Creatinine Est GFR ( Amer) Glucose Calcium Magnesium Total Bilirubin AST Alkaline Phosphatase Total Protein Albumin Blood Type O POSITIVE 06/20/20 05:59 WBC RBC Hgb Hct MCV MCH MCHC RDW Plt Count Seg Neutrophils % Sodium 140.6 Potassium 3.7 Chloride 107 Carbon Dioxide 24 Anion Gap 10 BUN 21 H Creatinine 1.10 Est GFR ( Amer) > 60 Glucose 108 Calcium 8.9 Magnesium 1.9 Total Bilirubin 0.9 AST 40 Alkaline Phosphatase 65 Total Protein 5.9 L Albumin 3.1 L Blood Type 06/16/20 06/16/20 06/16/20 09:20 09:20 12:07 Creatine Kinase 49 L CK-MB (CK-2) 1.19 Troponin I 0.015 0.015 NT-Pro-B Natriuret Pep 06/16/20 06/16/20 06/17/20 14:50 19:31 02:15 Creatine Kinase CK-MB (CK-2) Troponin I 0.019 0.041 0.076 NT-Pro-B Natriuret Pep 06/17/20 04:55 Creatine Kinase CK-MB (CK-2) Troponin I NT-Pro-B Natriuret Pep 8040 H Impressions: Chest/Abdomen CTA 06/16/20 10:44 IMPRESSION: 1. Enlarged left lobe of the thyroid gland which extends substernally. 2. Moderate to large right-sided pleural effusions some a which is loculated cui periorly. 3. Right lower lobe atelectasis or pneumonia. 4. Cardiomegaly. 5. No pulmonary emboli. Thyroid Ultrasound 06/17/20 00:00 IMPRESSION: Nodule 1 right lobe: Follow-up at 1, 3, 5 years Nodule 1 left lobe: No follow-up necessary Nodule 2 left lobe: FNA recommended. Chest X-Ray 06/18/20 07:00 IMPRESSION: Persistent mild vascular congestion. Stable right pleural effusion. Assessment & Plan - Diagnosis (1) Atrial flutter with rapid ventricular response Is this a current diagnosis for this admission?: Yes Plan: Impression: Persisting irregular tachycardia uncontrolled on Cardizem drip; coags stabilized after FFP transfused Plan: 1. Discussed situation with hospitalist service, and anesthesiologist, Dr. Annie servin. Collectively we agree patient insufficiently stable from a cardiac standpoint to undergo elective interval hernia repair 2. Hopefully we can get the heart rate down over the next day or 2; will provide clear liquids for patient today. (2) Irreducible right inguinal hernia Is this a current diagnosis for this admission?: Yes (3) Status post aorto-coronary artery bypass graft Is this a current diagnosis for this admission?: Yes (4) Anticoagulated on Coumadin Is this a current diagnosis for this admission?: Yes (5) Diabetes Qualifiers: Diabetes mellitus type: type 2 Is this a current diagnosis for this admission?: No (6) HTN (hypertension) Is this a current diagnosis for this admission?: No (7) Mitral valve replaced Is this a current diagnosis for this admission?: No (8) Right lower lobe pneumonia Is this a current diagnosis for this admission?: Yes (9) Thyroid mass Is this a current diagnosis for this admission?: Yes - Time Time Spent: 30 to 50 Minutes Critical Time spent with patient: Less than 15 minutes Smoking Cessation Education: 3 to 10 minutes Medications reviewed and adjusted accordingly: Yes Anticipated Discharge Disposition: Home, Self Care Anticipated Discharge Timeframe: To be determined
[2020-06-20] MEDS: CEFTRIAXONE 1 GM/D5W RTU 1 GM/50 ML RTUPB IV SCH (11:06)
[2020-06-20] MEDS: GLIPIZIDE XL 5 MG TAB.ER.24 PO SCH (11:06)
[2020-06-20] MEDS: TAMSULOSIN HCL 0.4 MG CAP.SR.24H PO SCH (11:06)
[2020-06-20] MEDS: ISOSORBIDE MONONITRATE 60 MG TAB.ER.24H PO SCH (11:06)
[2020-06-20] MEDS: AZITHROMYCIN 250 MG TABLET PO SCH (11:07)
[2020-06-20] MEDS: MULTIVITAMIN TABLET PO SCH (11:07)
[2020-06-20] MEDS: LISINOPRIL 10 MG TABLET PO SCH (11:07)
[2020-06-20] MEDS: FAMOTIDINE 20 MG TABLET PO SCH ×2 (11:07→22:14)
[2020-06-20] MEDS ORDERED: LORAZEPAM 0.5 MG TABLET PO ONE (12:00)
--- NOTE | 2020-06-20 12:47 | PDOC PROGRESS REPORT ---
Subjective Progress Note for:: 06/20/20 Reason For Visit: ATRIAL FIB Physical Exam Vital Signs: Temp Pulse Resp BP Pulse Ox 97.9 F 103 H 18 122/74 98 06/20/20 10:00 06/20/20 12:00 06/20/20 03:13 06/20/20 12:00 06/20/20 10:27 Intake & Output 06/19/20 06/20/20 06/21/20 06:59 06:59 06:59 Intake Total 1228 2517 Output Total 725 3515 Balance 503 -998 Weight 99.9 kg 87.8 kg Results Laboratory Results: 06/20/20 05:59 06/20/20 05:59 06/19/20 06/19/20 06/20/20 14:34 20:48 05:59 WBC 6.8 6.4 RBC 4.02 L 4.32 L Hgb 12.3 L 13.0 L Hct 35.2 L 38.1 MCV 88 88 MCH 30.7 30.0 MCHC 35.0 34.1 RDW 13.3 13.3 Plt Count 144 L 132 L Seg Neutrophils % 52.8 59.8 Sodium Potassium Chloride Carbon Dioxide Anion Gap BUN Creatinine Est GFR ( Amer) Glucose Calcium Magnesium Total Bilirubin AST Alkaline Phosphatase Total Protein Albumin Blood Type O POSITIVE 06/20/20 05:59 WBC RBC Hgb Hct MCV MCH MCHC RDW Plt Count Seg Neutrophils % Sodium 140.6 Potassium 3.7 Chloride 107 Carbon Dioxide 24 Anion Gap 10 BUN 21 H Creatinine 1.10 Est GFR ( Amer) > 60 Glucose 108 Calcium 8.9 Magnesium 1.9 Total Bilirubin 0.9 AST 40 Alkaline Phosphatase 65 Total Protein 5.9 L Albumin 3.1 L Blood Type 06/16/20 06/16/20 06/16/20 09:20 09:20 12:07 Creatine Kinase 49 L CK-MB (CK-2) 1.19 Troponin I 0.015 0.015 NT-Pro-B Natriuret Pep 06/16/20 06/16/20 06/17/20 14:50 19:31 02:15 Creatine Kinase CK-MB (CK-2) Troponin I 0.019 0.041 0.076 NT-Pro-B Natriuret Pep 06/17/20 04:55 Creatine Kinase CK-MB (CK-2) Troponin I NT-Pro-B Natriuret Pep 8040 H Impressions: Chest/Abdomen CTA 06/16/20 10:44 IMPRESSION: 1. Enlarged left lobe of the thyroid gland which extends substernally. 2. Moderate to large right-sided pleural effusions some a which is loculated superiorly. 3. Right lower lobe atelectasis or pneumonia. 4. Cardiomegaly. 5. No pulmonary emboli. Thyroid Ultrasound 06/17/20 00:00 IMPRESSION: Nodule 1 right lobe: Follow-up at 1, 3, 5 years Nodule 1 left lobe: No follow-up necessary Nodule 2 left lobe: FNA recommended. Chest X-Ray 06/18/20 07:00 IMPRESSION: Persistent mild vascular congestion. Stable right pleural effusion. Assessment and Plan - Diagnosis (1) Atrial flutter with rapid ventricular response Is this a current diagnosis for this admission?: Yes Plan: Patient seen in his room appears to be pretty comfortable. He was supposed to go to the OR today however it looks like patient is still poorly controlled with his A. flutter. His heart rate is in the 120s. He is currently on Cardizem 10 mg/h and he just received an IV dose of digoxin. Did discuss with Dr. Thompson. Due to his poorly controlled tachycardia patient will go to the ER today. Patient will be restarted on his liquid diet. (2) Diabetes Qualifiers: Diabetes mellitus type: type 2 Is this a current diagnosis for this admission?: No Plan: 06/16/2020-patient has history of type 2 diabetes mellitus. Latest blood sugar is 180. To hold metformin and to continue glipizide. Compliance with medications advised. 06/17/2020-latest blood sugar is 137. Plan is to continue insulin sliding scale coverage before meals and at bedtime. 06/20We will continue with sliding scale insulin (3) HTN (hypertension) Is this a current diagnosis for this admission?: No Plan: 06/16/2020-patient has history of chronic essential hypertension taking Lasix, lisinopril/hydrochlorothiazide at home. Plan is to continue the blood pressure medications during the hospital stay. His blood pressure in the ER is 122/86. 06/17/2020-blood pressure this morning is 112/71. To discontinue hydrochlorothiazide. Discontinue Cardizem drip at this time. 06/18/2020-blood pressure today is 122/60. Stable. 06/19/2020-blood pressure this morning is 108/70. Patient is complaining of swelling of the lower extremities to give a small dose of IV Lasix this morning. 06/20 blood pressure is relatively stable. Continue with Cardizem and make further adjustments as needed (4) Irreducible right inguinal hernia Is this a current diagnosis for this admission?: Yes Plan: OR when medically stable (5) Mitral valve replaced Is this a current diagnosis for this admission?: No Plan: 06/16/2020-patient has history of wall replacement with pig valve. Patient is on Coumadin for atrial fibrillation. INR 3.74. To closely monitor the PT/INR on daily basis. 06/17/2020-patient has history of porcine mitral valve replacement on Coumadin. INR is 3.5. To hold Coumadin until the INR comes down to less than 3. 06/18/2020-INR is pending today. Goal is to keep the INR between 2-3. 06/19/2020-INR today is 2.41. To continue to hold Coumadin and recheck PT/INR tomorrow. (6) Right lower lobe pneumonia Is this a current diagnosis for this admission?: Yes Plan: 06/16/2020-patient has right lower lobe pneumonia. Blood cultures requested patient start on IV Rocephin and Zithromax. Patient may need right-sided thoracentesis diagnostic thoracentesis. To continue IV Rocephin and Zithromax at this time. 06/17/2020-patient admitted with right lower lobe pneumonia. Afebrile. Blood cultures still pending. To continue IV Rocephin, IV Zithromax at this time. To consider right-sided diagnostic thoracentesis on Friday. 06/18/2020-blood cultures are negative so far. Afebrile. WBC count within normal limits. Plan is to continue IV Rocephin and Zithromax at this time. 06/19/2020-patient is on Zithromax, Rocephin blood cultures are negative. Chest x-ray shows moderate right pleural effusion patient is reluctant to have thoracentesis at this time. Will continue to monitor (7) Status post aorto-coronary artery bypass graft Is this a current diagnosis for this admission?: Yes (8) Thyroid mass Is this a current diagnosis for this admission?: Yes Plan: 06/19/20-ultrasound of the thyroid indicated above multinodular goiter. And is reluctant to have a thyroid biopsy at this time. 06/20 Follow up as outpatient - Time Time Spent with patient: 15-24 minutes Anticipated Discharge Disposition: Home with Home Health Anticipated Discharge Timeframe: within 72 hours
[2020-06-20] MEDS ORDERED: METOPROLOL TARTRATE 25 MG TABLET PO ONE (15:00)
--- NOTE | 2020-06-20 16:43 | RADIOLOGY REPORT (SQ) ---
EXAM DESCRIPTION: CHEST SINGLE VIEW IMAGES COMPLETED DATE/TIME: 06/20/2020 3:01 pm REASON FOR STUDY: [place] Pleural effusion. COMPARISON: Chest films 12/15/2015, 06/16/2020, 06/18/2020 EXAM PARAMETERS: NUMBER OF VIEWS: One view. TECHNIQUE: Single frontal radiographic view of the chest acquired. RADIATION DOSE: NA LIMITATIONS: None. FINDINGS: LUNGS AND PLEURA: Persistent small right pleural effusion with right basilar consolidation atelectasis versus pneumonia. This is similar compared to 06/18/2028 and 06/16/2020. No gross left pleural effusion or airspace disease. No pneumothorax MEDIASTINUM AND HILAR STRUCTURES: No masses. Contour normal. HEART AND VASCULAR STRUCTURES: Stable cardiomegaly. Old CABG BONES: No acute findings. HARDWARE: None in the chest. OTHER: No other significant finding. IMPRESSION: Persistent small right pleural effusion with right basilar consolidation, unchanged from 06/18/2020. Old CABG with stable cardiomegaly TECHNICAL DOCUMENTATION: JOB ID: [id number] 2010 [employer]- All Rights Reserved Reading location - IP/workstation name: [email or web address]
--- NOTE | 2020-06-20 21:53 | Progress Note ---
Provider Note Provider Note: CARDIOLOGY PROGRESS NOTE by Dr. Staci Cabrera on 06/20/2020. SUBJECTIVE: Although the patient is asymptomatic his heart rate has been difficult to control and at times close to 120 bpm. He is now on Cardizem 15 mg/h drip. In view of the heart rate being up the patient surgery has been rescheduled. The patient is also on p.o. Lopressor. He says he is coughing a little less now still productive green sputum. There is no ventricle arrhythmia seen on the monitor. He has no anginal symptoms. There is no shortness of breath PND orthopnea or leg edema. There is no pain at the hernia site. PHYSICAL EXAMINATION: The patient is well-built and in no acute distress Selected Entries 06/20/20 06/20/20 16:00 16:49 Temperature 97.7 F Pulse Rate 82 Blood Pressure 113/56 L Blood Pressure 75 Mean O2 Sat by Pulse 95 Oximetry HEAD: Is atraumatic normocephalic. EYES: Pupils are equal round regular reactive to light and accommodation. Extraocular movements are normal. There is no conjunctival pallor. There is no scleral icterus. EARS: Tympanic membranes are intact. External auditory canals are clear. NOSE: There is no deviated nasal septum. There is no inflammation nasal mucous membrane. MOUTH: There is no redness of the oropharynx. There is no exudates. There is no bleeding from the gums. THROAT: There is no redness of the oropharynx. There is no exudates in the throat. SKIN: There is no petechia or ecchymosis. There is no skin lesions or skin rashes. NECK: Is supple. There is no JVD. Carotids are equal there is no bruit. There is no lymphadenopathy. There is no goiter.. There is no accessory muscle respiration use. Trachea central. LUNGS: There is dullness and absent breath sounds in the right lower lobe. The rest of the lungs are clear without any rhonchi rales or wheezing. HEART: S1-S2 is heard. S1 is of variable intensity. There is no S3 gallop. There is no S4 gallop.There is systolic murmur left sternal border and the apex there is no rub. ABDOMEN: Is soft. Nontender. There is no hepatosplenomegaly. Bowel sounds are well heard. There is a right inguinal hernia, and seems to be uncomplicated. EXTREMITIES: Femorals are well felt. There is no femoral bruits. Leg pulses well felt. There is no pedal edema. There is no DVT or cellulitis. There is no calf tenderness. There is no cyanosis or clubbing. DIRECTOR LABOR STANDARDS: The patient is conscious awake alert oriented x3 with no focal deficits. PSYCHIATRIC: The patient judgment insight are intact his affect is normal. Labs- All tests 24 hr 06/20/20 06/20/20 06/20/20 05:59 05:59 05:59 WBC 6.4 RBC 4.32 L Hgb 13.0 L Hct 38.1 MCV 88 MCH 30.0 MCHC 34.1 RDW 13.3 Plt Count 132 L Lymph % (Auto) 21.4 [place] % (Auto) 9.9 Eos % (Auto) 8.1 H Baso % (Auto) 0.8 Absolute Neuts (auto) 3.8 Absolute Lymphs (auto) 1.4 Absolute Monos (auto) 0.6 Absolute Eos (auto) 0.5 Absolute Basos (auto) 0.1 Seg Neutrophils % 59.8 PT 20.9 H INR 1.79 Sodium 140.6 Potassium 3.7 Chloride 107 Carbon Dioxide 24 Anion Gap 10 BUN 21 H Creatinine 1.10 Est GFR ( Amer) > 60 Est GFR (MDRD) Non-Af > 60 Glucose 108 POC Glucose Calcium 8.9 Magnesium 1.9 Total Bilirubin 0.9 Direct Bilirubin 0.2 Neonat Total Bilirubin Not Reportable Neonat Direct Bilirubin Not Reportable Neonat Indirect Bili Not Reportable AST 40 ALT 20 Alkaline Phosphatase 65 Total Protein 5.9 L Albumin 3.1 L 06/20/20 06/20/20 06/20/20 08:02 12:20 16:48 WBC RBC Hgb Hct MCV MCH MCHC RDW Plt Count Lymph % (Auto) [place] % (Auto) Eos % (Auto) Baso % (Auto) Absolute Neuts (auto) Absolute Lymphs (auto) Absolute Monos (auto) Absolute Eos (auto) Absolute Basos (auto) Seg Neutrophils % PT INR Sodium Potassium Chloride Carbon Dioxide Anion Gap BUN Creatinine Est GFR ( Amer) Est GFR (MDRD) Non-Af Glucose POC Glucose 105 111 H 123 H Calcium Magnesium Total Bilirubin Direct Bilirubin Neonat Total Bilirubin Neonat Direct Bilirubin Neonat Indirect Bili AST ALT Alkaline Phosphatase Total Protein Albumin Chest X-Ray 06/16/20 09:15 IMPRESSION: Volume loss and consolidation right lower lobe with fullness of the right hilum and small right pleural effusion. Postobstructive pneumonia from right hilar mass may be present. Consider CT chest for followup. Few Concepcion lines at the left lung base, question interstitial edema or fluid overload. 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 Chest/Abdomen CTA 06/16/20 10:44 IMPRESSION: 1. Enlarged left lobe of the thyroid gland which extends substernally. 2. Moderate to large right-sided pleural effusions some a which is loculated superiorly. 3. Right lower lobe atelectasis or pneumonia. 4. Cardiomegaly. 5. No pulmonary emboli. Thyroid Ultrasound 06/17/20 00:00 IMPRESSION: Nodule 1 right lobe: Follow-up at 1, 3, 5 years Nodule 1 left lobe: No follow-up necessary Nodule 2 left lobe: FNA recommended. Chest X-Ray 06/18/20 07:00 IMPRESSION: Persistent mild vascular congestion. Stable right pleural effusion. Chest X-Ray 06/20/20 00:00 IMPRESSION: Persistent small right pleural effusion with right basilar consolidation, unchanged from 06/18/2020. Old CABG with stable cardiomegaly to me it looks like the patient right pleural effusion slightly less than before. There is also mitralisation of the left atrial border suggestive of left atrial enlargement. IMPRESSION/RECOMMENDATION: 1. Atrial flutter/fibrillation with rapid ventricular response. The heart rate is much improved although not optimally controlled. INR still pretty high. Will give an extra dose of digoxin and restart the patient on a Cardizem drip, which is now dialed up to 15 mg/h. His metoprolol had been stopped. We will restart the patient on Lopressor 50 mg p.o. every 12 hours. We will give 1 dose of 25 mg. 2. Right lower lobe pneumonia with loculated right lower lobe effusion: Agree with antibiotics. 3. Coronary artery disease:. History of coronary bypass graft surgery patient without any anginal symptoms. 4. Hypertension: Blood pressure appears to be well controlled at present. 5. Diabetes mellitus type 2: None insulin requiring. Continue antidiabetic medication and Accu-Cheks as per protocol. 6. Hyperlipidemia: Continue statins. 7. History of mitral valve replacement with porcine valve. Appears to be functioning normally. 8. Substernal thyroid. Does not appear to be any kind of causing any problems. Thyroid function tests are normal. 9. Right inguinal hernia for possible surgery. 10. Therapeutic INR on Coumadin. Coumadin has been held. We will give the patient fresh frozen plasma so that the INR comes below 1.5 so patient can have his surgery tomorrow. 11. Preoperative cardiac risk assessment.: Once heart rate is better controlled the patient would be acceptable cardiac risk for the hernia surgery. Medications reviewed. Medical regimen and management plan discussed with attending provider on the case. Medical decision making is of high complexity. 40 minutes spent as patient with more than 50% time spent in direct patient care. Discussed the case with attending provider and also with the patient and patient's daughter. Also discussed with surgical hist Dr. Thompson.
[2020-06-20] MEDS: SIMVASTATIN 10 MG TABLET PO SCH (22:07)
[2020-06-20] MEDS: METOPROLOL TARTRATE 50 MG TABLET PO SCH (22:07)
[2020-06-21] MEDS: DILTIAZEM HCL/D5W 125 MG/125 ML RTUINJ IV PRN (01:30)
[2020-06-21] MEDS: ACETAMINOPHEN 325 MG TABLET PO PRN ×2 (04:27→22:22)
[2020-06-21 07:30] LABS: INTERNATIONAL RATION (INR) 1.87; PROTHROMBIN TIME 21.6 SEC (11.4-15.4)
[2020-06-21] MEDS: INSULIN REG, HUMAN 100 UNIT/ML 3 ML VIAL (PYX) SUBCUT SCH ×4 (09:36→22:28)
[2020-06-21] MEDS: METOPROLOL TARTRATE 50 MG TABLET PO SCH ×2 (09:38→23:11)
[2020-06-21] MEDS: MULTIVITAMIN TABLET PO SCH (09:38)
[2020-06-21] MEDS: TAMSULOSIN HCL 0.4 MG CAP.SR.24H PO SCH (09:38)
[2020-06-21] MEDS: FAMOTIDINE 20 MG TABLET PO SCH ×2 (09:38→22:23)
[2020-06-21] MEDS: ISOSORBIDE MONONITRATE 60 MG TAB.ER.24H PO SCH (09:38)
[2020-06-21] MEDS: GLIPIZIDE XL 5 MG TAB.ER.24 PO SCH (09:38)
[2020-06-21] MEDS: AZITHROMYCIN 250 MG TABLET PO SCH (09:39)
[2020-06-21] MEDS: LISINOPRIL 10 MG TABLET PO SCH (09:41)
[2020-06-21] MEDS ORDERED: METOPROLOL TARTRATE 25 MG TABLET PO SCH (12:00)
[2020-06-21] MEDS: CEFTRIAXONE 1 GM/D5W RTU 1 GM/50 ML RTUPB IV SCH (12:09)
[2020-06-21] MEDS ORDERED: METOPROLOL TARTRATE 25 MG TABLET PO ONE (13:00)
--- NOTE | 2020-06-21 16:35 | PDOC PROGRESS REPORT ---
Subjective Progress Note for:: 06/21/20 Subjective:: Patient feels better today. It appears that his heart rate is much better controlled. He did receive digoxin IV with the last dose yesterday but none today his heart rate is down in the 70s to 80s although he still in A. fib. Patient has a porcine valve and he had been on Coumadin but this was revised due to his impending surgery. At this time it is unclear when patient will be rescheduled for surgery. He may need to go on heparin IV if no surgery is planned in the next 24 hours or so Reason For Visit: ATRIAL FIB Physical Exam Vital Signs: Temp Pulse Resp BP Pulse Ox 97.6 F 7 L 18 116/82 96 06/21/20 11:26 06/21/20 14:00 06/21/20 11:26 06/21/20 11:26 06/21/20 11:26 Intake & Output 06/20/20 06/21/20 06/22/20 06:59 06:59 06:59 Intake Total 1867 1288 545 Output Total 1405 1460 200 Balance -998 -172 345 Weight 87.8 kg 91.2 kg General appearance: PRESENT: no acute distress, well-nourished Head exam: PRESENT: normocephalic Eye exam: PRESENT: conjunctiva pink, EOMI, PERRLA. ABSENT: scleral icterus Ear exam: PRESENT: normal external ear exam Mouth exam: PRESENT: moist, tongue midline Neck exam: ABSENT: carotid bruit, JVD, lymphadenopathy, thyromegaly Respiratory exam: PRESENT: clear to auscultation barby. ABSENT: rales, rhonchi, wheezes Cardiovascular exam: PRESENT: irregular rhythm, +S1, +S2. ABSENT: diastolic murmur, rubs, systolic murmur Pulses: PRESENT: normal dorsalis pedis pul Vascular exam: PRESENT: normal capillary refill GI/Abdominal exam: PRESENT: hernia, normal bowel sounds, soft. ABSENT: distended, guarding, mass, organolmegaly, rebound, tenderness Rectal exam: PRESENT: deferred Extremities exam: PRESENT: full ROM. ABSENT: calf tenderness, clubbing, pedal edema Neurological exam: PRESENT: alert, awake, oriented to person, oriented to place, oriented to time, oriented to situation, CN II-XII grossly intact. ABSENT: motor sensory deficit Psychiatric exam: PRESENT: appropriate affect, normal mood. ABSENT: homicidal ideation, suicidal ideation Skin exam: PRESENT: dry, intact, warm. ABSENT: cyanosis, rash Results Laboratory Results: 06/20/20 05:59 06/20/20 05:59 06/16/20 12:48 Blood Blood Culture - Final NO GROWTH IN 5 DAYS 06/16/20 12:07 Blood Blood Culture - Final NO GROWTH IN 5 DAYS 06/16/20 06/16/20 06/16/20 09:20 09:20 12:07 Creatine Kinase 49 L CK-MB (CK-2) 1.19 Troponin I 0.015 0.015 NT-Pro-B Natriuret Pep 06/16/20 06/16/20 06/17/20 14:50 19:31 02:15 Creatine Kinase CK-MB (CK-2) Troponin I 0.019 0.041 0.076 NT-Pro-B Natriuret Pep 06/17/20 04:55 Creatine Kinase CK-MB (CK-2) Troponin I NT-Pro-B Natriuret Pep 8040 H Impressions: Chest/Abdomen CTA 06/16/20 10:44 IMPRESSION: 1. Enlarged left lobe of the thyroid gland which extends substernally. 2. Moderate to large right-sided pleural effusions some a which is loculated superiorly. 3. Right lower lobe atelectasis or pneumonia. 4. Cardiomegaly. 5. No pulmonary emboli. Thyroid Ultrasound 06/17/20 00:00 IMPRESSION: Nodule 1 right lobe: Follow-up at 1, 3, 5 years Nodule 1 left lobe: No follow-up necessary Nodule 2 left lobe: FNA recommended. Chest X-Ray 06/20/20 00:00 IMPRESSION: Persistent small right pleural effusion with right basilar consolidation, unchanged from 06/18/2020. Old CABG with stable cardiomegaly Assessment and Plan - Diagnosis (1) Atrial flutter with rapid ventricular response Is this a current diagnosis for this admission?: Yes Plan: Patient seen in his room appears to be pretty comfortable. He was supposed to go to the OR today however it looks like patient is still poorly controlled with his A. flutter. His heart rate is in the 120s. He is currently on Cardizem 10 mg/h and he just received an IV dose of digoxin. Did discuss with Dr. Thompson. Due to his poorly controlled tachycardia patient will not go to the OR today. Patient will be restarted on his liquid diet. 08/21 awaiting surgical input regarding his hernia repair (2) Diabetes Qualifiers: Diabetes mellitus type: type 2 Is this a current diagnosis for this admission?: No Plan: 06/16/2020-patient has history of type 2 diabetes mellitus. Latest blood sugar is 180. To hold metformin and to continue glipizide. Compliance with medications advised. 06/17/2020-latest blood sugar is 137. Plan is to continue insulin sliding scale coverage before meals and at bedtime. 06/20We will continue with sliding scale insulin (3) HTN (hypertension) Is this a current diagnosis for this admission?: No (4) Irreducible right inguinal hernia Is this a current diagnosis for this admission?: Yes Plan: OR when medically stable (5) Mitral valve replaced Is this a current diagnosis for this admission?: No Plan: 06/16/2020-patient has history of wall replacement with pig valve. Patient is on Coumadin for atrial fibrillation. INR 3.74. To closely monitor the PT/INR on daily basis. 06/17/2020-patient has history of porcine mitral valve replacement on Coumadin. INR is 3.5. To hold Coumadin until the INR comes down to less than 3. 06/18/2020-INR is pending today. Goal is to keep the INR between 2-3. 06/19/2020-INR today is 2.41. To continue to hold Coumadin and recheck PT/INR tomorrow. 06/21 patient may need heparin bridge if no surgery scheduled in the next 24 hours (6) Right lower lobe pneumonia Is this a current diagnosis for this admission?: Yes Plan: 06/16/2020-patient has right lower lobe pneumonia. Blood cultures requested patient start on IV Rocephin and Zithromax. Patient may need right-sided thoracentesis diagnostic thoracentesis. To continue IV Rocephin and Zithromax at this time. 06/17/2020-patient admitted with right lower lobe pneumonia. Afebrile. Blood cultures still pending. To continue IV Rocephin, IV Zithromax at this time. To consider right-sided diagnostic thoracentesis on Friday. 06/18/2020-blood cultures are negative so far. Afebrile. WBC count within normal limits. Plan is to continue IV Rocephin and Zithromax at this time. 06/19/2020-patient is on Zithromax, Rocephin blood cultures are negative. Chest x-ray shows moderate right pleural effusion patient is reluctant to have thoracentesis at this time. Will continue to monitor (7) Status post aorto-coronary artery bypass graft Is this a current diagnosis for this admission?: Yes (8) Thyroid mass Is this a current diagnosis for this admission?: Yes Plan: 06/19/20-ultrasound of the thyroid indicated above multinodular goiter. And is reluctant to have a thyroid biopsy at this time. 06/20 Follow up as outpatient - Time Time Spent with patient: 15-24 minutes Medications reviewed and adjusted accordingly: Yes Anticipated Discharge Disposition: Home, Self Care Anticipated Discharge Timeframe: within 72 hours
--- NOTE | 2020-06-21 19:07 | PDOC PROGRESS REPORT ---
Subjective Progress Note for:: 06/21/20 Subjective:: 80-year-old male with a right inguinal hernia, and A. fib/RVR. The patient is doing well today. He continues to complain of discomfort in his groin. He denies chest pain, shortness of breath, fevers, chills, nausea, vomiting, blurry vision, dizziness, orthostasis a headache. Reason For Visit: ATRIAL FIB Physical Exam Vital Signs: Temp Pulse Resp BP Pulse Ox 97.8 F 62 16 121/72 100 06/21/20 15:37 06/21/20 15:37 06/21/20 15:37 06/21/20 15:37 06/21/20 15:37 Intake & Output 06/20/20 06/21/20 06/22/20 06:59 06:59 06:59 Intake Total 2517 1288 855 Output Total 3515 1460 200 Balance -998 -172 655 Weight 87.8 kg 91.2 kg General appearance: PRESENT: no acute distress, cooperative Head exam: PRESENT: atraumatic, normocephalic Eye exam: PRESENT: EOMI, PERRLA. ABSENT: scleral icterus Mouth exam: PRESENT: moist, neck supple Neck exam: ABSENT: meningismus, tenderness, thyromegaly, tracheal deviation Respiratory exam: PRESENT: unlabored. ABSENT: tachypnea, wheezes Cardiovascular exam: ABSENT: tachycardia GI/Abdominal exam: PRESENT: soft, tenderness - Overlying right inguinal hernia Rectal exam: PRESENT: deferred Extremities exam: ABSENT: clubbing Musculoskeletal exam: ABSENT: deformity Neurological exam: PRESENT: alert, awake, oriented to person, oriented to place, oriented to time, oriented to situation Psychiatric exam: ABSENT: agitated, anxious, depressed Focused psych exam: ABSENT: delusional Skin exam: ABSENT: cyanosis, erythema, jaundice Results Laboratory Results: 06/20/20 05:59 06/20/20 05:59 06/16/20 12:48 Blood Blood Culture - Final NO GROWTH IN 5 DAYS 06/16/20 12:07 Blood Blood Culture - Final NO GROWTH IN 5 DAYS 06/16/20 06/16/20 06/16/20 09:20 09:20 12:07 Creatine Kinase 49 L CK-MB (CK-2) 1.19 Troponin I 0.015 0.015 NT-Pro-B Natriuret Pep 06/16/20 06/16/20 06/17/20 14:50 19:31 02:15 Creatine Kinase CK-MB (CK-2) Troponin I 0.019 0.041 0.076 NT-Pro-B Natriuret Pep 06/17/20 04:55 Creatine Kinase CK-MB (CK-2) Troponin I NT-Pro-B Natriuret Pep 8040 H Impressions: Chest/Abdomen CTA 06/16/20 10:44 IMPRESSION: 1. Enlarged left lobe of the thyroid gland which extends substernally. 2. Moderate to large right-sided pleural effusions some a which is loculated superiorly. 3. Right lower lobe atelectasis or pneumonia. 4. Cardiomegaly. 5. No pulmonary emboli. Thyroid Ultrasound 06/17/20 00:00 IMPRESSION: Nodule 1 right lobe: Follow-up at 1, 3, 5 years Nodule 1 left lobe: No follow-up necessary Nodule 2 left lobe: FNA recommended. Chest X-Ray 06/20/20 00:00 IMPRESSION: Persistent small right pleural effusion with right basilar consolidation, unchanged from 06/18/2020. Old CABG with stable cardiomegaly Assessment & Plan - Diagnosis (1) Irreducible right inguinal hernia Is this a current diagnosis for this admission?: Yes - Time Anticipated Discharge Disposition: unknown - Unknown Anticipated Discharge Timeframe: Unknown - Plan Summary Plan Summary: 80-year-old male with a right inguinal hernia. The patient has been suffering from A. fib/RVR that is difficult to control. His heart rate is under better control at present. Hope to perform right inguinal hernia on Friday. We will discuss the plan with anesthesia. Surgery will continue to follow.
--- NOTE | 2020-06-21 21:26 | Progress Note ---
Provider Note Provider Note: CARDIOLOGY PROGRESS NOTE by Dr. Staci Rust on 06/21/2020. SUBJECTIVE: Although the patient is asymptomatic his heart rate has been difficult to control and at times close to 120 bpm. At present time his heart rate is much improved. He is now on Cardizem 15 mg/h drip. In view of the heart rate being up the patient surgery has been rescheduled. The patient is also on p.o. Lopressor. He says he is coughing a little less now still productive green sputum. There is no ventricle arrhythmia seen on the monitor. He has no anginal symptoms. There is no shortness of breath PND orthopnea or leg edema. There is no pain at the hernia site. PHYSICAL EXAMINATION: The patient is well-built and in no acute distress. Selected Entries 06/21/20 15:37 Temperature 97.8 F Temperature Oral Source Pulse Rate 62 Respiratory 16 Rate Blood Pressure 121/72 Blood Pressure 88 Mean BP Location Left Arm BP Position Sitting O2 Sat by Pulse 100 Oximetry Oxygen Flow 1.50 Rate Oxygen Delivery Nasal Cannula Method HEAD: Is atraumatic normocephalic. EYES: Pupils are equal round regular reactive to light and accommodation. Extraocular movements are normal. There is no conjunctival pallor. There is no scleral icterus. EARS: Tympanic membranes are intact. External auditory canals are clear. NOSE: There is no deviated nasal septum. There is no inflammation nasal mucous membrane. MOUTH: There is no redness of the oropharynx. There is no exudates. There is no bleeding from the gums. THROAT: There is no redness of the oropharynx. There is no exudates in the throat. SKIN: There is no petechia or ecchymosis. There is no skin lesions or skin rashes. NECK: Is supple. There is no JVD. Carotids are equal there is no bruit. There is no lymphadenopathy. There is no goiter.. There is no accessory muscle respiration use. Trachea central. LUNGS: There is dullness and absent breath sounds in the right lower lobe. The rest of the lungs are clear without any rhonchi rales or wheezing. HEART: S1-S2 is heard. S1 is of variable intensity. There is no S3 gallop. There is no S4 gallop.There is systolic murmur left sternal border and the apex there is no rub. ABDOMEN: Is soft. Nontender. There is no hepatosplenomegaly. Bowel sounds are well heard. There is a right inguinal hernia, and seems to be uncomplicated. EXTREMITIES: Femorals are well felt. There is no femoral bruits. Leg pulses well felt. There is no pedal edema. There is no DVT or cellulitis. There is no calf tenderness. There is no cyanosis or clubbing. [employer] WORKER: The patient is conscious awake alert oriented x3 with no focal deficits. PSYCHIATRIC: The patient judgment insight are intact his affect is normal. His pro time is 21.6 his INR is 1.87. IMPRESSION/RECOMMENDATION: 1. Atrial flutter/fibrillation with rapid ventricular response. The heart rate is much improved although not optimally controlled. INR still pretty high. Will give an extra dose of digoxin and restart the patient on a Cardizem drip, which is now dialed up to 15 mg/h. His metoprolol had been stopped. We will restart the patient on Lopressor 50 mg p.o. every 12 hours. We will give 1 dose of 25 mg. 2. Right lower lobe pneumonia with loculated right lower lobe effusion: Agree with antibiotics. 3. Coronary artery disease:. History of coronary bypass graft surgery patient without any anginal symptoms. 4. Hypertension: Blood pressure appears to be well controlled at present. 5. Diabetes mellitus type 2: None insulin requiring. Continue antidiabetic medication and Accu-Cheks as per protocol. 6. Hyperlipidemia: Continue statins. 7. History of mitral valve replacement with porcine valve. Appears to be functioning normally. 8. Substernal thyroid. Does not appear to be any kind of causing any problems. Thyroid function tests are normal. 9. Right inguinal hernia for possible surgery. 10. Therapeutic INR on Coumadin. Coumadin has been held. We will give the patient fresh frozen plasma so that the INR comes below 1.5 so patient can have his surgery tomorrow. 11. Preoperative cardiac risk assessment.: Once heart rate is better controlled the patient would be acceptable cardiac risk for the hernia surgery. Medications reviewed. Medical regimen and management plan discussed with attending provider on the case. Medical decision making is of high complexity. 40 minutes spent as patient with more than 50% time spent in direct patient care. Discussed the case with attending provider and also with the patient and patient's daughter. Also discussed with surgical hist Dr. Thompson.
[2020-06-21] MEDS: SIMVASTATIN 10 MG TABLET PO SCH (22:23)
[2020-06-22 06:26] LABS: ABSOLUTE BASOPHILS # (AUTO) 0.1 10^3/uL (0.0-0.2); ABSOLUTE EOSINOPHILS # (AUTO) 0.6 10^3/uL (0.0-0.6); ABSOLUTE LYMPHOCYTES (AUTO) 1.6 10^3/uL (0.5-4.7); ABSOLUTE MONOCYTES (AUTO) 0.7 10^3/uL (0.1-1.4); ABSOLUTE NEUT (AUTO) 3.7 10^3/uL (1.7-8.2); BASOPHILS % (AUTO) 0.9 % (0-2); EOSINOPHILS % (AUTO) 9.6 % (0-6); HEMATOCRIT 38.1 % (37.9-51.0); HEMOGLOBIN 12.9 g/dL (13.5-17.0); LYMPHOCYTES % (AUTO) 23.8 % (13-45); MEAN CORPUSCULAR HEMOGLOBIN 29.6 pg (27.0-33.4); MEAN CORPUSCULAR HGB CONC 33.7 g/dL (32.0-36.0); MEAN CORPUSCULAR VOLUME 88 fl (80-97); MONOCYTES % (AUTO) 10.2 % (3-13); PLATELET COUNT 122 10^3/uL (150-450); RED BLOOD COUNT 4.34 10^6/uL (4.35-5.55); RED CELL DISTRIBUTION WIDTH 13.5 % (11.5-14.0); SEGMENTED NEUTROPHILS % (AUTO) 55.5 % (42-78); TOTAL CELLS COUNTED % (AUTO) 100 %; WHITE BLOOD COUNT 6.7 10^3/uL (4.0-10.5)
[2020-06-22 06:49] LABS: ANION GAP 10 (5-19); BLOOD UREA NITROGEN 18 mg/dL (7-20); CALCIUM 8.8 mg/dL (8.4-10.2); CARBON DIOXIDE 24 mmol/L (22-30); CHLORIDE 105 mmol/L (98-107); GLUCOSE 81 mg/dL (75-110); INTERNATIONAL RATION (INR) 1.73; POTASSIUM 4.1 mmol/L (3.6-5.0); PROTHROMBIN TIME 20.3 SEC (11.4-15.4)
[2020-06-22] MEDS: INSULIN REG, HUMAN 100 UNIT/ML 3 ML VIAL (PYX) SUBCUT SCH ×4 (08:09→21:41)
[2020-06-22] MEDS: AZITHROMYCIN 250 MG TABLET PO SCH (09:20)
[2020-06-22] MEDS: GLIPIZIDE XL 5 MG TAB.ER.24 PO SCH (09:20)
[2020-06-22] MEDS: METOPROLOL TARTRATE 50 MG TABLET PO SCH ×2 (09:20→21:39)
[2020-06-22] MEDS: MULTIVITAMIN TABLET PO SCH (09:20)
[2020-06-22] MEDS: ISOSORBIDE MONONITRATE 60 MG TAB.ER.24H PO SCH (09:20)
[2020-06-22] MEDS: LISINOPRIL 10 MG TABLET PO SCH (09:20)
[2020-06-22] MEDS: FAMOTIDINE 20 MG TABLET PO SCH ×2 (09:20→21:39)
[2020-06-22] MEDS: TAMSULOSIN HCL 0.4 MG CAP.SR.24H PO SCH (09:20)
--- NOTE | 2020-06-22 12:10 | PDOC PROGRESS REPORT ---
Subjective Progress Note for:: 06/22/20 Subjective:: feels well, no pain Reason For Visit: ATRIAL FIB Physical Exam Vital Signs: Temp Pulse Resp BP Pulse Ox 97.7 F 61 18 114/61 97 06/22/20 08:15 06/22/20 07:00 06/21/20 19:34 06/21/20 19:34 06/21/20 19:34 Intake & Output 06/21/20 06/22/20 06/23/20 06:59 06:59 06:59 Intake Total 1288 855 Output Total 1460 1000 Balance -172 -145 Weight 91.2 kg 102.1 kg General appearance: PRESENT: no acute distress Head exam: PRESENT: normocephalic Eye exam: PRESENT: EOMI Ear exam: PRESENT: normal external ear exam Mouth exam: PRESENT: moist Neck exam: PRESENT: full ROM Respiratory exam: PRESENT: clear to auscultation barby Cardiovascular exam: PRESENT: RRR Pulses: PRESENT: normal radial pulses, normal femoral pulses Vascular exam: PRESENT: normal capillary refill GI/Abdominal exam: PRESENT: soft Rectal exam: PRESENT: deferred Extremities exam: PRESENT: full ROM Musculoskeletal exam: PRESENT: full ROM Neurological exam: PRESENT: alert, oriented to person, oriented to place Psychiatric exam: PRESENT: appropriate affect Skin exam: PRESENT: dry Results Laboratory Results: 06/22/20 05:44 06/22/20 05:44 06/22/20 06/22/20 05:44 05:44 WBC 6.7 RBC 4.34 L Hgb 12.9 L Hct 38.1 MCV 88 MCH 29.6 MCHC 33.7 RDW 13.5 Plt Count 122 L Seg Neutrophils % 55.5 Sodium 138.5 Potassium 4.1 Chloride 105 Carbon Dioxide 24 Anion Gap 10 BUN 18 Creatinine 1.23 Est GFR ( Amer) > 60 Glucose 81 Calcium 8.8 06/16/20 12:48 Blood Blood Culture - Final NO GROWTH IN 5 DAYS 06/16/20 12:07 Blood Blood Culture - Final NO GROWTH IN 5 DAYS 06/16/20 06/16/20 06/16/20 09:20 09:20 12:07 Creatine Kinase 49 L CK-MB (CK-2) 1.19 Troponin I 0.015 0.015 NT-Pro-B Natriuret Pep 06/16/20 06/16/20 06/17/20 14:50 19:31 02:15 Creatine Kinase CK-MB (CK-2) Troponin I 0.019 0.041 0.076 NT-Pro-B Natriuret Pep 06/17/20 04:55 Creatine Kinase CK-MB (CK-2) Troponin I NT-Pro-B Natriuret Pep 8040 H Impressions: Chest/Abdomen CTA 06/16/20 10:44 IMPRESSION: 1. Enlarged left lobe of the thyroid gland which extends substern ally. 2. Moderate to large right-sided pleural effusions some a which is loculated superiorly. 3. Right lower lobe atelectasis or pneumonia. 4. Cardiomegaly. 5. No pulmonary emboli. Thyroid Ultrasound 06/17/20 00:00 IMPRESSION: Nodule 1 right lobe: Follow-up at 1, 3, 5 years Nodule 1 left lobe: No follow-up necessary Nodule 2 left lobe: FNA recommended. Chest X-Ray 06/20/20 00:00 IMPRESSION: Persistent small right pleural effusion with right basilar consolidation, unchanged from 06/18/2020. Old CABG with stable cardiomegaly Assessment & Plan - Time Anticipated Discharge Disposition: Home, Self Care Anticipated Discharge Timeframe: unk - Plan Summary Plan Summary: pt doing ok here for inguinal hernia repair scheduled for tomorrow.
[2020-06-22] MEDS: CEFTRIAXONE 1 GM/D5W RTU 1 GM/50 ML RTUPB IV SCH (13:06)
--- NOTE | 2020-06-22 15:10 | PDOC PROGRESS REPORT ---
Subjective Progress Note for:: 06/22/20 Subjective:: Patient feels better today. No new complaints Reason For Visit: ATRIAL FIB Physical Exam Vital Signs: Temp Pulse Resp BP Pulse Ox 97.7 F 62 18 114/61 97 06/22/20 08:15 06/22/20 14:00 06/21/20 19:34 06/21/20 19:34 06/21/20 19:34 Intake & Output 06/21/20 06/22/20 06/23/20 06:59 06:59 06:59 Intake Total 1288 855 520 Output Total 1460 1000 100 Balance -172 -145 420 Weight 91.2 kg 102.1 kg General appearance: PRESENT: no acute distress, well-developed, well-nourished Head exam: PRESENT: atraumatic, normocephalic Eye exam: PRESENT: conjunctiva pink, EOMI, PERRLA. ABSENT: scleral icterus Ear exam: PRESENT: normal external ear exam, other Mouth exam: PRESENT: moist, tongue midline Neck exam: ABSENT: carotid bruit, JVD, lymphadenopathy, thyromegaly Respiratory exam: PRESENT: clear to auscultation barby. ABSENT: rales, rhonchi, wheezes Cardiovascular exam: PRESENT: irregular rhythm, +S1, +S2. ABSENT: diastolic murmur, rubs, systolic murmur Pulses: PRESENT: normal dorsalis pedis pul Vascular exam: PRESENT: normal capillary refill GI/Abdominal exam: PRESENT: normal bowel sounds, soft. ABSENT: distended, guarding, mass, organolmegaly, rebound, tenderness Rectal exam: PRESENT: deferred Extremities exam: PRESENT: full ROM. ABSENT: calf tenderness, clubbing, pedal edema Neurological exam: PRESENT: alert, awake, oriented to person, oriented to place, oriented to time, oriented to situation, CN II-XII grossly intact. ABSENT: motor sensory deficit Psychiatric exam: PRESENT: appropriate affect, normal mood. ABSENT: homicidal ideation, suicidal ideation Skin exam: PRESENT: dry, intact, warm, other - Growth on nose,. ABSENT: cyanosis, rash Results Laboratory Results: 06/22/20 05:44 06/22/20 05:44 06/22/20 06/22/20 05:44 05:44 WBC 6.7 RBC 4.34 L Hgb 12.9 L Hct 38.1 MCV 88 MCH 29.6 MCHC 33.7 RDW 13.5 Plt Count 122 L Seg Neutrophils % 55.5 Sodium 138.5 Potassium 4.1 Chloride 105 Carbon Dioxide 24 Anion Gap 10 BUN 18 Creatinine 1.23 Est GFR ( Amer) > 60 Glucose 81 Calcium 8.8 06/16/20 12:48 Blood Blood Culture - Final NO GROWTH IN 5 DAYS 06/16/20 12:07 Blood Blood Culture - Final NO GROWTH IN 5 DAYS 06/16/20 06/16/20 06/16/20 09:20 09:20 12:07 Creatine Kinase 49 L CK-MB (CK-2) 1.19 Troponin I 0.015 0.015 NT-Pro-B Natriuret Pep 06/16/20 06/16/20 06/17/20 14:50 19:31 02:15 Creatine Kinase CK-MB (CK-2) Troponin I 0.019 0.041 0.076 NT-Pro-B Natriuret Pep 06/17/20 04:55 Creatine Kinase CK-MB (CK-2) Troponin I NT-Pro-B Natriuret Pep 8040 H Impressions: Chest/Abdomen CTA 06/16/20 10:44 IMPRESSION: 1. Enlarged left lobe of the thyroid gland which extends substernally. 2. Moderate to large right-sided pleural effusions some a which is loculated superiorly. 3. Right lower lobe atelectasis or pneumonia. 4. Cardiomegaly. 5. No pulmonary emboli. Thyroid Ultrasound 06/17/20 00:00 IMPRESSION: Nodule 1 right lobe: Follow-up at 1, 3, 5 years Nodule 1 left lobe: No follow-up necessary Nodule 2 left lobe: FNA recommended. Chest X-Ray 06/20/20 00:00 IMPRESSION: Persistent small right pleural effusion with right basilar consolidation, unchanged from 06/18/2020. Old CABG with stable cardiomegaly Assessment and Plan - Diagnosis (1) Atrial flutter with rapid ventricular response Is this a current diagnosis for this admission?: Yes Plan: Patient seen in his room appears to be pretty comfortable. He was supposed to go to the OR today however it looks like patient is still poorly controlled with his A. flutter. His heart rate is in the 120s. He is currently on Cardizem 10 mg/h and he just received an IV dose of digoxin. Did discuss with Dr. Thompson. Due to his poorly controlled tachycardia patient will not go to the OR today. Patient will be restarted on his liquid diet. 08/21 awaiting surgical input regarding his hernia repair 08/22 Better controlled (2) Diabetes Qualifiers: Diabetes mellitus type: type 2 Is this a current diagnosis for this admission?: No (3) HTN (hypertension) Is this a current diagnosis for this admission?: No Plan: 06/16/2020-patient has history of chronic essential hypertension taking Lasix, lisinopril/hydrochlorothiazide at home. Plan is to continue the blood pressure medications during the hospital stay. His blood pressure in the ER is 122/86. 06/17/2020-blood pressure this morning is 112/71. To discontinue hydrochlorothiazide. Discontinue Cardizem drip at this time. 06/18/2020-blood pressure today is 122/60. Stable. 06/19/2020-blood pressure this morning is 108/70. Patient is complaining of swelling of the lower extremities to give a small dose of IV Lasix this morning. 06/20 blood pressure is relatively stable. Continue with Cardizem and make further adjustments as needed 06/22 Controlled (4) Irreducible right inguinal hernia Is this a current diagnosis for this admission?: Yes Plan: OR when medically stableI discussed with general surgery. The plan is for inguinal hernia repair likely in a.m. (5) Mitral valve replaced Is this a current diagnosis for this admission?: No (6) Right lower lobe pneumonia Is this a current diagnosis for this admission?: Yes (7) Status post aorto-coronary artery bypass graft Is this a current diagnosis for this admission?: Yes (8) Thyroid mass Is this a current diagnosis for this admission?: Yes Plan: 06/19/20-ultrasound of the thyroid indicated above multinodular goiter. And is reluctant to have a thyroid biopsy at this time. 06/20 Follow up as outpatient - Time Time Spent with patient: 15-24 minutes Medications reviewed and adjusted accordingly: Yes Anticipated Discharge Disposition: Home, Self Care Anticipated Discharge Timeframe: within 72 hours
--- NOTE | 2020-06-22 19:41 | Progress Note ---
Provider Note Provider Note: CARDIOLOGY PROGRESS NOTE by Dr. Staci Rust on 06/22/2020. SUBJECTIVE: The patient's heart rate is now well controlled he is off the Cardizem drip. He denies any chest pain or discomfort. There is no shortness of breath. There is no PND orthopnea. There is no TIA CVA symptoms. There is no ventricle arrhythmia seen on the monitor. The plan is the patient will have hernia surgery either on Friday else tomorrow or Friday. PHYSICAL EXAMINATION: Patient is well-built in no acute distress. Selected Entries 06/22/20 06/22/20 16:39 17:00 Temperature 97.5 F Temperature Oral Source Heart Rate ( 87 Monitors) Respiratory 18 Rate Blood Pressure 129/82 H Blood Pressure 97 Mean BP Location Left Arm BP Position Sitting O2 Sat by Pulse 100 Oximetry Oxygen Flow 1.50 Rate Oxygen Delivery Nasal Cannula Method HEAD: Is atraumatic normocephalic. EYES: Pupils are equal round regular reactive to light and accommodation. Extraocular movements are normal. There is no conjunctival pallor. There is no scleral icterus. EARS: Tympanic membranes are intact. External auditory canals are clear. NOSE: There is no deviated nasal septum. There is no inflammation nasal mucous membrane. MOUTH: There is no redness of the oropharynx. There is no exudates. There is no bleeding from the gums. THROAT: There is no redness of the oropharynx. There is no exudates in the throat. SKIN: There is no petechia or ecchymosis. There is no skin lesions or skin rashes. NECK: Is supple. There is no JVD. Carotids are equal there is no bruit. There is no lymphadenopathy. There is no goiter.. There is no accessory muscle respiration use. Trachea central. LUNGS: There is dullness and absent breath sounds in the right lower lobe. The rest of the lungs are clear without any rhonchi rales or wheezing. HEART: S1-S2 is heard. S1 is of variable intensity. There is no S3 gallop. There is no S4 gallop.There is systolic murmur left sternal border and the apex there is no rub. ABDOMEN: Is soft. Nontender. There is no hepatosplenomegaly. Bowel sounds are well heard. There is a right inguinal hernia, and seems to be uncomplicated. EXTREMITIES: Femorals are well felt. There is no femoral bruits. Leg pulses well felt. There is no pedal edema. There is no DVT or cellulitis. There is no calf tenderness. There is no cyanosis or clubbing. 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 PSYCHIATRIC: The patient judgment insight are intact his affect is normal. Labs- All tests 24 hr 06/22/20 06/22/20 06/22/20 05:44 05:44 05:44 WBC 6.7 RBC 4.34 L Hgb 12.9 L Hct 38.1 MCV 88 MCH 29.6 MCHC 33.7 RDW 13.5 Plt Count 122 L Lymph % (Auto) 23.8 [place] % (Auto) 10.2 Eos % (Auto) 9.6 H Baso % (Auto) 0.9 Absolute Neuts (auto) 3.7 Absolute Lymphs (auto) 1.6 Absolute Monos (auto) 0.7 Absolute Eos (auto) 0.6 Absolute Basos (auto) 0.1 Seg Neutrophils % 55.5 PT 20.3 H INR 1.73 Sodium 138.5 Potassium 4.1 Chloride 105 Carbon Dioxide 24 Anion Gap 10 BUN 18 Creatinine 1.23 Est GFR ( Amer) > 60 Est GFR (MDRD) Non-Af 57 L Glucose 81 POC Glucose Calcium 8.8 06/22/20 06/22/20 06/22/20 07:25 11:13 16:34 WBC RBC Hgb Hct MCV MCH MCHC RDW Plt Count Lymph % (Auto) [place] % (Auto) Eos % (Auto) Baso % (Auto) Absolute Neuts (auto) Absolute Lymphs (auto) Absolute Monos (auto) Absolute Eos (auto) Absolute Basos (auto) Seg Neutrophils % PT INR Sodium Potassium Chloride Carbon Dioxide Anion Gap BUN Creatinine Est GFR ( Amer) Est GFR (MDRD) Non-Af Glucose POC Glucose 82 106 107 Calcium 06/22/20 21:01 WBC RBC Hgb Hct MCV MCH MCHC RDW Plt Count Lymph % (Auto) [place] % (Auto) Eos % (Auto) Baso % (Auto) Absolute Neuts (auto) Absolute Lymphs (auto) Absolute Monos (auto) Absolute Eos (auto) Absolute Basos (auto) Seg Neutrophils % PT INR Sodium Potassium Chloride Carbon Dioxide Anion Gap BUN Creatinine Est GFR ( Amer) Est GFR (MDRD) Non-Af Glucose POC Glucose 114 H Calcium Chest X-Ray 06/16/20 09:15 IMPRESSION: Volume loss and consolidation right lower lobe with fullness of the right hilum and small right pleural effusion. Postobstructive pneumonia from right hilar mass may be present. Consider CT chest for followup. Few Concepcion lines at the left lung base, question interstitial edema or fluid overload. 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 Chest/Abdomen CTA 06/16/20 10:44 IMPRESSION: 1. Enlarged left lobe of the thyroid gland which extends substernally. 2. Moderate to large right-sided pleural effusions some a which is loculated superiorly. 3. Right lower lobe atelectasis or pneumonia. 4. Cardiomegaly. 5. No pulmonary emboli. Thyroid Ultrasound 06/17/20 00:00 IMPRESSION: Nodule 1 right lobe: Follow-up at 1, 3, 5 years Nodule 1 left lobe: No follow-up necessary Nodule 2 left lobe: FNA recommended. Chest X-Ray 06/18/20 07:00 IMPRESSION: Persistent mild vascular congestion. Stable right pleural effusion. Chest X-Ray 06/20/20 00:00 IMPRESSION: Persistent small right pleural effusion with right basilar consolidation, unchanged from 06/18/2020. Old CABG with stable cardiomegaly IMPRESSION/RECOMMENDATION: 1. Atrial flutter/fibrillation with rapid ventricular response. The heart rate is well controlled. His metoprolol has been increased to 75 mg p.o. twice daily. 2. Right lower lobe pneumonia with loculated right lower lobe effusion: Agree with antibiotics. Will recheck a chest x-ray in the a.m. 3. Coronary artery disease:. History of coronary bypass graft surgery patient without any anginal symptoms. 4. Hypertension: Blood pressure appears to be well controlled at present. 5. Diabetes mellitus type 2: None insulin requiring. Continue antidiabetic medication and Accu-Cheks as per protocol. 6. Hyperlipidemia: Continue statins. 7. History of mitral valve replacement with porcine valve. Appears to be functioning normally. 8. Substernal thyroid. Does not appear to be any kind of causing any problems. Thyroid function tests are normal. 9. Right inguinal hernia for possible surgery. 10. Therapeutic INR on Coumadin. Coumadin has been held. We will give the patient fresh frozen plasma so that the INR comes below 1.5 so patient can have his surgery tomorrow. 11. Preoperative cardiac risk assessment.: THE PATIENT WILL BE ACCEPTABLE CARDIAC RISK FOR RIGHT INGUINAL HERNIORRHAPHY.. Medications reviewed. Medical management and management plan discussed with attending provider and and with Dr. Thompson. Medical decision making is still of moderatecomplexity. 40 minutes spent with patient more than 50% of time spent in direct patient care. Will follow.
[2020-06-22] MEDS: SIMVASTATIN 10 MG TABLET PO SCH (21:39)
[2020-06-23 06:58] LABS: INTERNATIONAL RATION (INR) 1.58
[2020-06-23] MEDS: INSULIN REG, HUMAN 100 UNIT/ML 3 ML VIAL (PYX) SUBCUT SCH ×4 (08:18→21:17)
--- NOTE | 2020-06-23 08:38 | RADIOLOGY REPORT (SQ) ---
EXAM DESCRIPTION: CHEST SINGLE VIEW IMAGES COMPLETED DATE/TIME: 06/23/2020 8:30 am REASON FOR STUDY: RLL pneumonia COMPARISON: 06/20/2020 EXAM PARAMETERS: NUMBER OF VIEWS: One view. TECHNIQUE: Single frontal radiographic view of the chest acquired. RADIATION DOSE: NA LIMITATIONS: None. FINDINGS: LUNGS AND PLEURA: Persistent right pleural effusion with underlying airspace disease. The fusion appears slightly smaller when compared to prior study. No pneumothorax. MEDIASTINUM AND HILAR STRUCTURES: No masses. Contour normal. HEART AND VASCULAR STRUCTURES: Heart remains enlarged. No failure. BONES: No acute findings. HARDWARE: Sternotomy wires are in place. OTHER: No other significant finding. IMPRESSION: Persistent small right pleural effusion improved from prior exam. Probable underlying a telectasis or pneumonia. Stable cardiomegaly. TECHNICAL DOCUMENTATION: JOB ID: [id number] 2010 [employer]- All Rights Reserved Reading location - IP/workstation name: [email or web address]
[2020-06-23] MEDS: MULTIVITAMIN TABLET PO SCH (09:25)
[2020-06-23] MEDS: METOPROLOL TARTRATE 50 MG TABLET PO SCH ×2 (09:25→21:18)
[2020-06-23] MEDS: TAMSULOSIN HCL 0.4 MG CAP.SR.24H PO SCH (09:26)
[2020-06-23] MEDS: LISINOPRIL 10 MG TABLET PO SCH (09:26)
[2020-06-23] MEDS: GLIPIZIDE XL 5 MG TAB.ER.24 PO SCH (09:27)
[2020-06-23] MEDS: ISOSORBIDE MONONITRATE 60 MG TAB.ER.24H PO SCH (09:27)
[2020-06-23] MEDS: AZITHROMYCIN 250 MG TABLET PO SCH (09:28)
[2020-06-23] MEDS: FAMOTIDINE 20 MG TABLET PO SCH ×2 (09:28→21:19)
[2020-06-23] MEDS ORDERED: DIGOXIN INJ 0.5 MG/2 ML AMPULE IV ONE (11:00)
[2020-06-23] MEDS ORDERED: MIDAZOLAM 2 MG/2 ML INJ ONE (12:00)
[2020-06-23] MEDS ORDERED: DILTIAZEM HCL INJ 25 MG/5 ML VIAL ONE (12:01)
[2020-06-23] MEDS ORDERED: FENTANYL CITRATE INJ/PF 100 MCG/2 ML AMPUL ONE (12:01)
[2020-06-23] MEDS: DILTIAZEM HCL/D5W 125 MG/125 ML RTUINJ IV PRN (12:14)
--- NOTE | 2020-06-23 12:16 | PDOC PROGRESS REPORT ---
Subjective Progress Note for:: 06/23/20 Subjective:: 80-year-old male with a right inguinal hernia, and A. fib/RVR. The patient is doing well today. He continues to complain of discomfort in his groin. He denies chest pain, shortness of breath, fevers, chills, nausea, vomiting, blurry vision, dizziness, orthostasis a headache. Reason For Visit: ATRIAL FIB Physical Exam Vital Signs: Temp Pulse Resp BP Pulse Ox 97.6 F 116 H 17 114/80 99 06/23/20 08:05 06/23/20 08:05 06/23/20 08:05 06/23/20 08:05 06/23/20 08:05 Intake & Output 06/22/20 06/23/20 06/24/20 06:59 06:59 06:59 Intake Total 855 780 50 Output Total 1000 1525 Balance -145 -745 50 Weight 102.1 kg 99.5 kg Exam: General appearance: PRESENT: no acute distress, cooperative Head exam: PRESENT: atraumatic, normocephalic Eye exam: PRESENT: EOMI, PERRLA. ABSENT: scleral icterus Mouth exam: PRESENT: moist, neck supple Neck exam: ABSENT: meningismus, tenderness, thyromegaly, tracheal deviation Respiratory exam: PRESENT: unlabored. ABSENT: tachypnea, wheezes Cardiovascular exam: ABSENT: tachycardia GI/Abdominal exam: PRESENT: soft, tenderness - Overlying right inguinal hernia Rectal exam: PRESENT: deferred Extremities exam: ABSENT: clubbing Musculoskeletal exam: ABSENT: deformity Neurological exam: PRESENT: alert, awake, oriented to person, oriented to place, oriented to time, oriented to situation Psychiatric exam: ABSENT: agitated, anxious, depressed Focused psych exam: ABSENT: delusional Skin exam: ABSENT: cyanosis, erythema, jaundice Results Laboratory Results: 06/22/20 05:44 06/22/20 05:44 06/16/20 06/16/20 06/16/20 09:20 09:20 12:07 Creatine Kinase 49 L CK-MB (CK-2) 1.19 Troponin I 0.015 0.015 NT-Pro-B Natriuret Pep 06/16/20 06/16/20 06/17/20 14:50 19:31 02:15 Creatine Kinase CK-MB (CK-2) Troponin I 0.019 0.041 0.076 NT-Pro-B Natriuret Pep 06/17/20 04:55 Creatine Kinase CK-MB (CK-2) Troponin I NT-Pro-B Natriuret Pep 8040 H Impressions: Chest/Abdomen CTA 06/16/20 10:44 IMPRESSION: 1. Enlarged left lobe of the thyroid gland which extends substerna lly. 2. Moderate to large right-sided pleural effusions some a which is loculated superiorly. 3. Right lower lobe atelectasis or pneumonia. 4. Cardiomegaly. 5. No pulmonary emboli. Thyroid Ultrasound 06/17/20 00:00 IMPRESSION: Nodule 1 right lobe: Follow-up at 1, 3, 5 years Nodule 1 left lobe: No follow-up necessary Nodule 2 left lobe: FNA recommended. Chest X-Ray 06/23/20 06:00 IMPRESSION: Persistent small right pleural effusion improved from prior exam. Probable underlying atelectasis or pneumonia. Stable cardiomegaly. Assessment & Plan - Diagnosis (1) Irreducible right inguinal hernia Is this a current diagnosis for this admission?: Yes - Time Anticipated Discharge Disposition: unknown Anticipated Discharge Timeframe: unknown - Plan Summary Plan Summary: 80-year-old male with a right inguinal hernia. The patient has been suffering from A. fib/RVR that is difficult to control. His heart rate is under better control at present. Plan for open right inguinal hernia repair today.
[2020-06-23] MEDS ORDERED: BUPIVACAINE HCL 0.25% /EPINEPHRINE INJ/PF 30 ML SDV ONE ×2 (12:36→13:47)
[2020-06-23] MEDS ORDERED: PROPOFOL INJ 200 MG/20 ML VIAL IV ONE (12:36)
--- NOTE | 2020-06-23 12:43 | EKG REPORT ---
SEVERITY:- ABNORMAL ECG - ATRIAL FIBRILLATION, V-RATE 66-[address]-T CHANGES- INFERIOR LEADS : Confirmed by: Koby Richardson MD 23-Jun-2020 12:43:09
[2020-06-23] MEDS ORDERED: CEFAZOLIN INJ 1 GM VIAL ONE (12:56)
--- NOTE | 2020-06-23 13:43 | PDOC PROGRESS REPORT ---
Subjective Progress Note for:: 06/23/20 Subjective:: Patient's heart rate was still poorly controlled early on today however after receiving his oral metoprolol his pulse rate is much better. He remains in persistent A. fib. Reason For Visit: ATRIAL FIB Physical Exam Vital Signs: Temp Pulse Resp BP Pulse Ox 97.7 F 73 16 99/73 L 99 06/23/20 11:57 06/23/20 12:37 06/23/20 11:57 06/23/20 12:37 06/23/20 12:37 Intake & Output 06/22/20 06/23/20 06/24/20 06:59 06:59 06:59 Intake Total 855 780 50 Output Total 1000 1525 Balance -145 -745 50 Weight 102.1 kg 99.5 kg General appearance: PRESENT: no acute distress, well-developed, well-nourished Head exam: PRESENT: atraumatic, normocephalic Eye exam: PRESENT: conjunctiva pink, EOMI, PERRLA. ABSENT: scleral icterus Ear exam: PRESENT: normal external ear exam Mouth exam: PRESENT: moist, tongue midline Neck exam: ABSENT: carotid bruit, JVD, lymphadenopathy, thyromegaly Respiratory exam: PRESENT: clear to auscultation barby. ABSENT: rales, rhonchi, wheezes Cardiovascular exam: PRESENT: irregular rhythm, +S1, +S2. ABSENT: diastolic m urmur, rubs, systolic murmur Pulses: PRESENT: normal dorsalis pedis pul Vascular exam: PRESENT: normal capillary refill GI/Abdominal exam: PRESENT: normal bowel sounds, soft. ABSENT: distended, guarding, mass, organolmegaly, rebound, tenderness Rectal exam: PRESENT: deferred Extremities exam: PRESENT: full ROM. ABSENT: calf tenderness, clubbing, pedal edema Neurological exam: PRESENT: alert, awake, oriented to person, oriented to place, oriented to time, oriented to situation, CN II-XII grossly intact. ABSENT: motor sensory deficit Psychiatric exam: PRESENT: appropriate affect, normal mood. ABSENT: homicidal ideation, suicidal ideation Skin exam: PRESENT: dry, intact, warm, other - thickened nasal skin. ABSENT: cyanosis, rash Results Laboratory Results: 06/22/20 05:44 06/22/20 05:44 06/16/20 06/16/20 06/16/20 09:20 09:20 12:07 Creatine Kinase 49 L CK-MB (CK-2) 1.19 Troponin I 0.015 0.015 NT-Pro-B Natriuret Pep 06/16/20 06/16/20 06/17/20 14:50 19:31 02:15 Creatine Kinase CK-MB (CK-2) Troponin I 0.019 0.041 0.076 NT-Pro-B Natriuret Pep 06/17/20 04:55 Creatine Kinase CK-MB (CK-2) Troponin I NT-Pro-B Natriuret Pep 8040 H Impressions: Chest/Abdomen CTA 06/16/20 10:44 IMPRESSION: 1. Enlarged left lobe of the thyroid gland which extends substernally. 2. Moderate to large right-sided pleural effusions some a which is loculated superiorly. 3. Right lower lobe atelectasis or pneumonia. 4. Cardiomegaly. 5. No pulmonary emboli. Thyroid Ultrasound 06/17/20 00:00 IMPRESSION: Nodule 1 right lobe: Follow-up at 1, 3, 5 years Nodule 1 left lobe: No follow-up necessary Nodule 2 left lobe: FNA recommended. Chest X-Ray 06/23/20 06:00 IMPRESSION: Persistent small right pleural effusion improved from prior exam. Probable underlying atelectasis or pneumonia. Stable cardiomegaly. Assessment and Plan - Diagnosis (1) Atrial flutter with rapid ventricular response Is this a current diagnosis for this admission?: Yes Plan: Patient seen in his room appears to be pretty comfortable. He was supposed to go to the OR today however it looks like patient is still poorly controlled with his A. flutter. His heart rate is in the 120s. He is currently on Cardizem 10 mg/h and he just received an IV dose of digoxin. Did discuss with Dr. Thompson. Due to his poorly controlled tachycardia patient will not go to the OR today. Patient will be restarted on his liquid diet. 08/21 awaiting surgical input regarding his hernia repair 08/22 Better controlled 06/23 continue current medications (2) Diabetes Qualifiers: Diabetes mellitus type: type 2 Is this a current diagnosis for this admission?: No Plan: 06/16/2020-patient has history of type 2 diabetes mellitus. Latest blood sugar is 180. To hold metformin and to continue glipizide. Compliance with medic ations advised. 06/17/2020-latest blood sugar is 137. Plan is to continue insulin sliding scale coverage before meals and at bedtime. 06/20We will continue with sliding scale insulin 06/23 continue sliding scale insulin (3) HTN (hypertension) Is this a current diagnosis for this admission?: No Plan: 06/16/2020-patient has history of chronic essential hypertension taking Lasix, lisinopril/hydrochlorothiazide at home. Plan is to continue the blood pressure medications during the hospital stay. His blood pressure in the ER is 122/86. 06/17/2020-blood pressure this morning is 112/71. To discontinue hydrochlorothiazide. Discontinue Cardizem drip at this time. 06/18/2020-blood pressure today is 122/60. Stable. 06/19/2020-blood pressure this morning is 108/70. Patient is complaining of swelling of the lower extremities to give a small dose of IV Lasix this morning. 06/20 blood pressure is relatively stable. Continue with Cardizem and make further adjustments as needed 06/22 Controlled 06/23 continue to monitor (4) Irreducible right inguinal hernia Is this a current diagnosis for this admission?: Yes (5) Mitral valve replaced Is this a current diagnosis for this admission?: No Plan: 06/16/2020-patient has history of wall replacement with pig valve. Patient is on Coumadin for atrial fibrillation. INR 3.74. To closely monitor the PT/INR on daily basis. 06/17/2020-patient has history of porcine mitral valve replacement on Coumadin. INR is 3.5. To hold Coumadin until the INR comes down to less than 3. 06/18/2020-INR is pending today. Goal is to keep the INR between 2-3. 06/19/2020-INR today is 2.41. To continue to hold Coumadin and recheck PT/INR tomorrow. 06/21 patient may need heparin bridge if no surgery scheduled in the next 24 hours 06/23 no heparin bridge needed as patient does not have a mechanical valve (6) Right lower lobe pneumonia Is this a current diagnosis for this admission?: Yes Plan: 06/16/2020-patient has right lower lobe pneumonia. Blood cultures requested patient start on IV Rocephin and Zithromax. Patient may need right-sided thoracentesis diagnostic thoracentesis. To continue IV Rocephin and Zithromax at this time. 06/17/2020-patient admitted with right lower lobe pneumonia. Afebrile. Blood cultures still pending. To continue IV Rocephin, IV Zithromax at this time. To consider right-sided diagnostic thoracentesis on Friday. 06/18/2020-blood cultures are negative so far. Afebrile. WBC count within normal limits. Plan is to continue IV Rocephin and Zithromax at this time. 06/19/2020-patient is on Zithromax, Rocephin blood cultures are negative. Chest x-ray shows moderate right pleural effusion patient is reluctant to have thoracentesis at this time. Will continue to monitor 06/23 follow-up chest x-ray noted (7) Status post aorto-coronary artery bypass graft Is this a current diagnosis for this admission?: Yes (8) Thyroid mass Is this a current diagnosis for this admission?: Yes Plan: 06/19/20-ultrasound of the thyroid indicated above multinodular goiter. And is reluctant to have a thyroid biopsy at this time. 06/20 Follow up as outpatient - Time Time Spent with patient: 15-24 minutes Medications reviewed and adjusted accordingly: Yes Anticipated Discharge Disposition: Home, Self Care Anticipated Discharge Timeframe: within 72 hours
[2020-06-23] MEDS ORDERED: ONDANSETRON HCL INJ/PF 4 MG/2 ML SDV IV PRN (14:39)
--- NOTE | 2020-06-23 16:07 | Operative Report ---
Nonrecallable Operative Report DATE OF SURGERY: 06/23/20 PREOPERATIVE DIAGNOSIS: Symptomatic right inguinal hernia POSTOPERATIVE DIAGNOSIS: Symptomatic indirect right inguinal hernia OPERATION: Open right inguinal hernia repair with mesh SURGEON: YASSINE LOYA ANESTHESIA: LMAC TISSUE REMOVED OR ALTERED: None COMPLICATIONS: None apparent ESTIMATED BLOOD LOSS: Minimal PROCEDURE: Drain/implants: Bard Marlex keyhole mesh. Procedure in detail: After informed consent was obtained, the patient was brought to the operating room and laid in the supine position. The area of the right groin was prepped and draped in a normal sterile fashion. Incision was created between the ASIS and pubic tubercle. Dissection was carried through the subcutaneous tissues using sharp and blunt dissection. Erasmo's fascia was divided. The external oblique aponeurosis was identified. It was incised with a 15 blade scalpel. The incision was lengthened with Metzenbaum scissors. The ilioinguinal nerve was identified and excised sharply. Next, the hernia was brought into view. There was an indirect defect with a moderate sized hernia sac. The hernia sac was freed from the cord structures, taking great care not to injure the cord structures. The hernia sac was then reduced back into the abdominal cavity. A Bard Marlex keyhole mesh was then brought over the field. It was placed into the right groinand sewn to the pubic tubercle x2. 0 Prolene suture was then run circumferentially around the mesh, to affix it to the abdominal wall. Inferiorly, it was sewn to Poupart's ligament. Superiorly it was sewn to the internal oblique aponeurosis. After the mesh was sutured into place, the keyhole was tightened, enough to admit the tip of the pinky finger. Once this was completed, the external oblique aponeurosis was closed over the mesh using 3-0 Vicryl suture. Erasmo's fascia was closed using 3-0 Vicryl suture. The overlying skin was closed using 4-0 Vicryl Rapide suture in subcuticular fashion. Dressings were placed, and the procedure was concluded. All sponge, instrument, and needle counts were correct x2. Condition: Stable.
--- NOTE | 2020-06-23 16:10 | Progress Note ---
Provider Note Provider Note: Right inguinal hernia is now repaired. Okay to shower starting on Friday. No tub baths or swimming pools x2 weeks. Follow-up with [facility] in 7 to 10 days. Surgery will sign off at this time. Please renotify with any questions or concerns.
[2020-06-23] MEDS ORDERED: CEFTRIAXONE 1 GM/D5W RTU 1 GM/50 ML RTUPB IV ONE (18:00)
[2020-06-23] MEDS: HYDROCODONE/ACETAMINOPHEN 5-325 MG TABLET PO PRN ×2 (18:17→23:45)
[2020-06-23] MEDS: CEFTRIAXONE 1 GM/D5W RTU 1 GM/50 ML RTUPB IV SCH (22:02)
[2020-06-23] MEDS: SIMVASTATIN 10 MG TABLET PO SCH (22:04)
[2020-06-24] MEDS: DILTIAZEM HCL/D5W 125 MG/125 ML RTUINJ IV PRN (00:46)
[2020-06-24 06:23] LABS: INTERNATIONAL RATION (INR) 1.65; PROTHROMBIN TIME 19.6 SEC (11.4-15.4)
[2020-06-24] MEDS: INSULIN REG, HUMAN 100 UNIT/ML 3 ML VIAL (PYX) SUBCUT SCH ×4 (08:34→22:19)
[2020-06-24] MEDS: MULTIVITAMIN TABLET PO SCH (10:19)
[2020-06-24] MEDS: TAMSULOSIN HCL 0.4 MG CAP.SR.24H PO SCH (10:19)
[2020-06-24] MEDS: LISINOPRIL 10 MG TABLET PO SCH (10:20)
[2020-06-24] MEDS: GLIPIZIDE XL 5 MG TAB.ER.24 PO SCH (10:20)
[2020-06-24] MEDS: ISOSORBIDE MONONITRATE 60 MG TAB.ER.24H PO SCH (10:21)
[2020-06-24] MEDS: FAMOTIDINE 20 MG TABLET PO SCH ×2 (10:21→22:31)
[2020-06-24] MEDS: METOPROLOL TARTRATE 50 MG TABLET PO SCH ×2 (10:22→22:31)
--- NOTE | 2020-06-24 13:30 | PDOC PROGRESS REPORT ---
Subjective Progress Note for:: 06/24/20 Subjective:: . He is proceeding well. patient is status post right inguinal hernia repair. He is to follow-up with surgery in 7 to 10 days. I discussed with Dr. Morgan and is suggested to restart Coumadin today at 2 mg daily. PT and INR is to be checked in 5 days as outpatient and is to follow-up with Dr. Morgan in a week Reason For Visit: ATRIAL FIB Physical Exam Vital Signs: Temp Pulse Resp BP Pulse Ox 98.1 F 61 16 114/64 95 06/24/20 11:38 06/24/20 11:38 06/24/20 11:38 06/24/20 11:38 06/24/20 11:38 Intake & Output 06/23/20 06/24/20 06/25/20 06:59 06:59 05:59 Intake Total 780 814 Output Total 1525 605 Balance -745 209 Weight 99.5 kg 102.6 kg General appearance: PRESENT: no acute distress, well-developed, well-nourished Head exam: PRESENT: atraumatic, normocephalic Eye exam: PRESENT: conjunctiva pink, EOMI, PERRLA. ABSENT: scleral icterus Ear exam: PRESENT: normal external ear exam Mouth exam: PRESENT: moist, tongue midline Neck exam: ABSENT: carotid bruit, JVD, lymphadenopathy, thyromegaly Respiratory exam: PRESENT: clear to auscultation barby. ABSENT: rales, rhonchi, wheezes Cardiovascular exam: PRESENT: irregular rhythm, +S1, +S2. ABSENT: diastolic murmur, rubs, systolic murmur Pulses: PRESENT: normal dorsalis pedis pul Vascular exam: PRESENT: normal capillary refill GI/Abdominal exam: PRESENT: normal bowel sounds, soft. ABSENT: distended, guarding, mass, organolmegaly, rebound, tenderness Rectal exam: PRESENT: deferred Extremities exam: PRESENT: full ROM. ABSENT: calf tenderness, clubbing, pedal edema Neurological exam: PRESENT: alert, awake, oriented to person, oriented to place, oriented to time, oriented to situation, CN II-XII grossly intact. ABSENT: motor sensory deficit Psychiatric exam: PRESENT: appropriate affect, normal mood. ABSENT: homicidal ideation, suicidal ideation Skin exam: PRESENT: dry, intact - thickened nasal skin, warm, other. ABSENT: cyanosis, rash Results Laboratory Results: 06/22/20 05:44 06/22/20 05:44 06/16/20 06/16/20 06/16/20 09:20 09:20 12:07 Creatine Kinase 49 L CK-MB (CK-2) 1.19 Troponin I 0.015 0.015 NT-Pro-B Natriuret Pep 06/16/20 06/16/20 06/17/20 14:50 19:31 02:15 Creatine Kinase CK-MB (CK-2) Troponin I 0.019 0.041 0.076 NT-Pro-B Natriuret Pep 06/17/20 04:55 Creatine Kinase CK-MB (CK-2) Troponin I NT-Pro-B Natriuret Pep 8040 H Impressions: Chest/Abdomen CTA 06/16/20 10:44 IMPRESSION: 1. Enlarged left lobe of the thyroid gland which extends substernally. 2. Moderate to large right-sided pleural effusions some a which is loculated superiorly. 3. Right lower lobe atelectasis or pneumonia. 4. Cardiomegaly. 5. No pulmonary emboli. Thyroid Ultrasound 06/17/20 00:00 IMPRESSION: Nodule 1 right lobe: Follow-up at 1, 3, 5 years Nodule 1 left lobe: No follow-up necessary Nodule 2 left lobe: FNA recommended. Chest X-Ray 06/23/20 06:00 IMPRESSION: Persistent small right pleural effusion improved from prior exam. Probable underlying atelectasis or pneumonia. Stable cardiomegaly. Assessment and Plan - Diagnosis (1) Atrial flutter with rapid ventricular response Is this a current diagnosis for this admission?: Yes (2) Diabetes Qualifiers: Diabetes mellitus type: type 2 Is this a current diagnosis for this admission?: No (3) HTN (hypertension) Is this a current diagnosis for this admission?: No (4) Irreducible right inguinal hernia Is this a current diagnosis for this admission?: Yes Plan: s/p right inguinal hernia repair (5) Mitral valve replaced Is this a current diagnosis for this admission?: No Plan: 06/16/2020-patient has history of wall replacement with pig valve. Patient is on Coumadin for atrial fibrillation. INR 3.74. To closely monitor the PT/INR on daily basis. 06/17/2020-patient has history of porcine mitral valve replacement on Coumadin. INR is 3.5. To hold Coumadin until the INR comes down to less than 3. 06/18/2020-INR is pending today. Goal is to keep the INR between 2-3. 06/19/2020-INR today is 2.41. To continue to hold Coumadin and recheck PT/INR tomorrow. 06/23 no heparin bridge needed as patient does not have a mechanical valve 06/24 patient is to be restarted on his Coumadin as per outpatient dose of 2 mg daily (6) Right lower lobe pneumonia Is this a current diagnosis for this admission?: Yes Plan: 06/16/2020-patient has right lower lobe pneumonia. Blood cultures requested patient start on IV Rocephin and Zithromax. Patient may need right-sided thoracentesis diagnostic thoracentesis. To continue IV Rocephin and Zithromax at this time. 06/17/2020-patient admitted with right lower lobe pneumonia. Afebrile. Blood cultures still pending. To continue IV Rocephin, IV Zithromax at this time. To consider right-sided diagnostic thoracentesis on Friday. 06/18/2020-blood cultures are negative so far. Afebrile. WBC count within normal limits. Plan is to continue IV Rocephin and Zithromax at this time. 06/19/2020-patient is on Zithromax, Rocephin blood cultures are negative. Chest x-ray shows moderate right pleural effusion patient is reluctant to have thora centesis at this time. Will continue to monitor 06/23 follow-up chest x-ray noted 06/24 pleated a course of ceftriaxone on 1029. Follow-up labs in a.m. (7) Status post aorto-coronary artery bypass graft Is this a current diagnosis for this admission?: Yes (8) Thyroid mass Is this a current diagnosis for this admission?: Yes Plan: 06/19/20-ultrasound of the thyroid indicated above multinodular goiter. And is reluctant to have a thyroid biopsy at this time. 06/20 Follow up as outpatient (9) Rhinophyma Is this a current diagnosis for this admission?: Yes Plan: This appears to be a benign condition and is nose - Time Time Spent with patient: 15-24 minutes Anticipated Discharge Disposition: Home, Self Care Anticipated Discharge Timeframe: within 24 hours
[2020-06-24] MEDS: HYDROCODONE/ACETAMINOPHEN 5-325 MG TABLET PO PRN (14:26)
--- NOTE | 2020-06-24 17:27 | Progress Note ---
Provider Note Provider Note: Patient not seen. Patient was in the operating room.. Will follow the patient tomorrow. Hence no charges for today.
--- NOTE | 2020-06-24 17:34 | Progress Note ---
Provider Note Provider Note: CARDIOLOGY PROGRESS NOTE by Dr. Staci Rust on 06/24/2020. SUBJECTIVE: The patient denies any chest pain or discomfort. He had no shortness of breath. His atrial fibrillation is heart rate is well controlled. There is no TIA CVA symptoms. He had uneventful right inguinal hernia surgery yesterday. He is doing well. He states he has pain at the hernia sites only when he coughs. There is no PND orthopnea or leg edema. PHYSICAL EXAMINATION: The patient is well-built and in no acute distress. Selected Entries 06/24/20 06/24/20 06/24/20 14:31 15:00 15:38 Temperature 97.9 F Pulse Rate 78 Respiratory 16 Rate Blood Pressure 100/52 L O2 Sat by Pulse 93 Oximetry Oxygen Delivery Room Air Method HEAD: Is atraumatic normocephalic. EYES: Pupils are equal round regular reactive to light and accommodation. Extraocular movements are normal. There is no conjunctival pallor. There is no scleral icterus. EARS: Tympanic membranes are intact. External auditory canals are clear. NOSE: There is no deviated nasal septum. There is no inflammation nasal mucous membrane. MOUTH: There is no redness of the oropharynx. There is no exudates. There is no bleeding from the gums. THROAT: There is no redness of the oropharynx. There is no exudates in the throat. SKIN: There is no petechia or ecchymosis. There is no skin lesions or skin rashes. NECK: Is supple. There is no JVD. Carotids are equal there is no bruit. There is no lymphadenopathy. There is no goiter.. There is no accessory muscle respiration use. Trachea central. LUNGS: There is dullness and absent breath sounds in the right lower lobe. The rest of the lungs are clear without any rhonchi rales or wheezing. HEART: S1-S2 is heard. S1 is of variable intensity. There is no S3 gallop. There is no S4 gallop.There is systolic murmur left sternal border and the apex there is no rub. ABDOMEN: Is soft. Nontender. There is no hepatosplenomegaly. Bowel sounds are well heard. There is a right inguinal dressing is dry and clean.. EXTREMITIES: Femorals are well felt. There is no femoral bruits. Leg pulses well felt. There is no pedal edema. There is no DVT or cellulitis. There is no calf tenderness. There is no cyanosis or clubbing. [employer]: The patient is conscious awake alert oriented x3 with no focal deficits. PSYCHIATRIC: The patient judgment insight are intact his affect is normal. Labs- All tests 24 hr 06/23/20 06/24/20 06/24/20 21:16 05:45 08:05 PT 19.6 H INR 1.65 POC Glucose 115 H 96 06/24/20 06/24/20 11:39 15:38 PT INR POC Glucose 159 H 151 H Chest X-Ray 06/16/20 09:15 IMPRESSION: Volume loss and consolidation right lower lobe with fullness of the right hilum and small right pleural effusion. Postobstructive pneumonia from right hilar mass may be present. Consider CT chest for followup. Few Concepcion lines at the left lung base, question interstitial edema or fluid overload. 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 Chest/Abdomen CTA 06/16/20 10:44 IMPRESSION: 1. Enlarged left lobe of the thyroid gland which extends substernally. 2. Moderate to large right-sided pleural effusions some a which is loculated s uperiorly. 3. Right lower lobe atelectasis or pneumonia. 4. Cardiomegaly. 5. No pulmonary emboli. Thyroid Ultrasound 06/17/20 00:00 IMPRESSION: Nodule 1 right lobe: Follow-up at 1, 3, 5 years Nodule 1 left lobe: No follow-up necessary Nodule 2 left lobe: FNA recommended. Chest X-Ray 06/18/20 07:00 IMPRESSION: Persistent mild vascular congestion. Stable right pleural effusion. Chest X-Ray 06/20/20 00:00 IMPRESSION: Persistent small right pleural effusion with right basilar consolidation, unchanged from 06/18/2020. Old CABG with stable cardiomegaly Chest X-Ray 06/23/20 06:00 IMPRESSION: Persistent small right pleural effusion improved from prior exam. Probable underlying atelectasis or pneumonia. Stable cardiomegaly. IMPRESSION/RECOMMENDATION: 1. Atrial flutter/fibrillation with rapid ventricular response. The heart rate is well controlled. We will stop the patient's IV Cardizem drip and continue the patient on metoprolol 75 mg p.o. twice daily. We will restart the patient's Coumadin at 2 mg p.o. nightly. We will recheck PT/INR in 5 days. We will see the patient in about a week. Note most likely the patient be discharged tomorrow we will ambulate the patient. 2. Right lower lobe pneumonia with loculated right lower lobe effusion: Agree with antibiotics. Will recheck a chest x-ray in the a.m. 3. Coronary artery disease:. History of coronary bypass graft surgery patient without any anginal symptoms. 4. Hypertension: Blood pressure appears to be well controlled at present. 5. Diabetes mellitus type 2: None insulin requiring. Continue antidiabetic medication and Accu-Cheks as per protocol. 6. Hyperlipidemia: Continue statins. 7. History of mitral valve replacement with porcine valve. Appears to be functioning normally. 8. Substernal thyroid. Does not appear to be any kind of causing any problems. Thyroid function tests are normal. 9. Right inguinal hernia: S/p surgery. Patient stable. Medications reviewed. Medical regimen management plan discussed with attending provider on the case. Medical decision making is of moderate complexity. 40 minutes spent as patient more than 50% of time spent in direct patient care. Will follow.
[2020-06-24 17:55] LABS: HEMATOCRIT 36.4 % (37.9-51.0); HEMOGLOBIN 12.5 g/dL (13.5-17.0); MEAN CORPUSCULAR HGB CONC 34.3 g/dL (32.0-36.0); MEAN CORPUSCULAR VOLUME 88 fl (80-97); PLATELET COUNT 141 10^3/uL (150-450); RED BLOOD COUNT 4.16 10^6/uL (4.35-5.55); RED CELL DISTRIBUTION WIDTH 13.5 % (11.5-14.0); WHITE BLOOD COUNT 10.6 10^3/uL (4.0-10.5)
[2020-06-24] MEDS: WARFARIN SODIUM 2 MG TABLET PO SCH (22:32)
[2020-06-24] MEDS: SIMVASTATIN 10 MG TABLET PO SCH (22:32)
[2020-06-25 06:08] LABS: ABSOLUTE EOSINOPHILS # (AUTO) 0.3 10^3/uL (0.0-0.6); ABSOLUTE NEUT (AUTO) 6.2 10^3/uL (1.7-8.2); BASOPHILS % (AUTO) 0.4 % (0-2); EOSINOPHILS % (AUTO) 3.9 % (0-6); HEMATOCRIT 36.4 % (37.9-51.0); HEMOGLOBIN 12.6 g/dL (13.5-17.0); LYMPHOCYTES % (AUTO) 11.9 % (13-45); MEAN CORPUSCULAR HEMOGLOBIN 30.2 pg (27.0-33.4); MEAN CORPUSCULAR HGB CONC 34.6 g/dL (32.0-36.0); MEAN CORPUSCULAR VOLUME 87 fl (80-97); MONOCYTES % (AUTO) 11.2 % (3-13); PLATELET COUNT 122 10^3/uL (150-450); RED BLOOD COUNT 4.16 10^6/uL (4.35-5.55); RED CELL DISTRIBUTION WIDTH 13.6 % (11.5-14.0); SEGMENTED NEUTROPHILS % (AUTO) 72.6 % (42-78); TOTAL CELLS COUNTED % (AUTO) 100 %; WHITE BLOOD COUNT 8.5 10^3/uL (4.0-10.5)
[2020-06-25 06:15] LABS: INTERNATIONAL RATION (INR) 1.72; PROTHROMBIN TIME 20.3 SEC (11.4-15.4)
[2020-06-25 06:28] LABS: ANION GAP 11 (5-19); BLOOD UREA NITROGEN 22 mg/dL (7-20); CALCIUM 8.7 mg/dL (8.4-10.2); CARBON DIOXIDE 23 mmol/L (22-30); CHLORIDE 102 mmol/L (98-107); GLUCOSE 123 mg/dL (75-110); POTASSIUM 3.9 mmol/L (3.6-5.0)
[2020-06-25] MEDS: INSULIN REG, HUMAN 100 UNIT/ML 3 ML VIAL (PYX) SUBCUT SCH ×4 (08:23→21:38)
[2020-06-25] MEDS: ISOSORBIDE MONONITRATE 60 MG TAB.ER.24H PO SCH (09:25)
[2020-06-25] MEDS: FAMOTIDINE 20 MG TABLET PO SCH ×2 (09:26→21:39)
[2020-06-25] MEDS: MULTIVITAMIN TABLET PO SCH (09:26)
[2020-06-25] MEDS: GLIPIZIDE XL 5 MG TAB.ER.24 PO SCH (09:26)
[2020-06-25] MEDS: LISINOPRIL 10 MG TABLET PO SCH (09:26)
[2020-06-25] MEDS: TAMSULOSIN HCL 0.4 MG CAP.SR.24H PO SCH (09:27)
[2020-06-25] MEDS ORDERED: BISACODYL 5 MG TABEC PO ONE (10:59)
[2020-06-25] MEDS ORDERED: BISACODYL 10 MG SUPP.RECT PR PRN ×2 (11:00→15:08)
[2020-06-25] MEDS ORDERED: DIGOXIN INJ 0.5 MG/2 ML AMPULE IV ONE (11:01)
[2020-06-25] MEDS: METOPROLOL TARTRATE 50 MG TABLET PO SCH ×2 (11:03→21:42)
--- NOTE | 2020-06-25 12:25 | Progress Note ---
Provider Note Provider Note: CARDIOLOGY PROGRESS NOTE by Dr. Staci Rust on 06/25/2020. SUBJECTIVE: The patient's heart rate is again upper. The patient is uncomfortable due to constipation. He has lower abdominal gas pains. He denies any PND orthopnea or shortness of breath. There is no anginal symptoms. There is no TIA CVA symptoms. The patient's Coumadin has been restarted. PHYSICAL EXAMINATION: The patient is well-built and well-nourished. In mild distress due to lower abdominal pain. Selected Entries 06/25/20 08:04 Temperature 98.0 F Temperature Oral Source Pulse Rate 124 H Respiratory 16 Rate Blood Pressure 114/82 Blood Pressure 92 Mean BP Location Right Arm BP Position Sitting O2 Sat by Pulse 96 Oximetry Oxygen Delivery Room Air Method HEAD: Is atraumatic normocephalic. EYES: Pupils are equal round regular reactive to light and accommodation. Extraocular movements are normal. There is no conjunctival pallor. There is no scleral icterus. EARS: Tympanic membranes are intact. External auditory canals are clear. NOSE: There is no deviated nasal septum. There is no inflammation nasal mucous membrane. MOUTH: There is no redness of the oropharynx. There is no exudates. There is no bleeding from the gums. THROAT: There is no redness of the oropharynx. There is no exudates in the throat. SKIN: There is no petechia or ecchymosis. There is no skin lesions or skin rashes. NECK: Is supple. There is no JVD. Carotids are equal there is no bruit. There is no lymphadenopathy. There is no goiter.. There is no accessory muscle respiration use. Trachea central. LUNGS: There is dullness and absent breath sounds in the right lower lobe. The rest of the lungs are clear without any rhonchi rales or wheezing. HEART: S1-S2 is heard. S1 is of variable intensity. There is no S3 gallop. There is no S4 gallop.There is systolic murmur left sternal border and the apex there is no rub. ABDOMEN: Is soft. Nontender. There is no hepatosplenomegaly. Bowel sounds are well heard. There is a right inguinal dressing is dry and clean.. EXTREMITIES: Femorals are well felt. There is no femoral bruits. Leg pulses well felt. There is no pedal edema. There is no DVT or cellulitis. There is no calf tenderness. There is no cyanosis or clubbing. [employer] TENDER: The patient is conscious awake alert oriented x3 with no focal deficits. PSYCHIATRIC: The patient judgment insight are intact his affect is normal. Labs- All tests 24 hr 06/24/20 06/24/20 06/24/20 15:38 17:30 21:31 WBC 10.6 H RBC 4.16 L Hgb 12.5 L Hct 36.4 L MCV 88 MCH 30.0 MCHC 34.3 RDW 13.5 Plt Count 141 L Lymph % (Auto) [place] % (Auto) Eos % (Auto) Baso % (Auto) Absolute Neuts (auto) Absolute Lymphs (auto) Absolute Monos (auto) Absolute Eos (auto) Absolute Basos (auto) Seg Neutrophils % PT INR Sodium Potassium Chloride Carbon Dioxide Anion Gap BUN Creatinine Est GFR ( Amer) Est GFR (MDRD) Non-Af Glucose POC Glucose 151 H 152 H Calcium 06/25/20 06/25/20 06/25/20 05:13 05:13 05:13 WBC 8.5 RBC 4.16 L Hgb 12.6 L Hct 36.4 L MCV 87 MCH 30.2 MCHC 34.6 RDW 13.6 Plt Count 122 L Lymph % (Auto) 11.9 L [place] % (Auto) 11.2 Eos % (Auto) 3.9 Baso % (Auto) 0.4 Absolute Neuts (auto) 6.2 Absolute Lymphs (auto) 1.0 Absolute Monos (auto) 1.0 Absolute Eos (auto) 0.3 Absolute Basos (auto) 0.0 Seg Neutrophils % 72.6 PT 20.3 H INR 1.72 Sodium 136.1 L Potassium 3.9 Chloride 102 Carbon Dioxide 23 Anion Gap 11 BUN 22 H Creatinine 1.06 Est GFR ( Amer) > 60 Est GFR (MDRD) Non-Af > 60 Glucose 123 H POC Glucose Calcium 8.7 06/25/20 06/25/20 08:06 12:05 WBC RBC Hgb Hct MCV MCH MCHC RDW Plt Count Lymph % (Auto) [place] % (Auto) Eos % (Auto) Baso % (Auto) Absolute Neuts (auto) Absolute Lymphs (auto) Absolute Monos (auto) Absolute Eos (auto) Absolute Basos (auto) Seg Neutrophils % PT INR Sodium Potassium Chloride Carbon Dioxide Anion Gap BUN Creatinine Est GFR ( Amer) Est GFR (MDRD) Non-Af Glucose POC Glucose 126 H 224 H Calcium Chest X-Ray 06/16/20 09:15 IMPRESSION: Volume loss and consolidation right lower lobe with fullness of the right hilum and small right pleural effusion. Postobstructive pneumonia from right hilar mass may be present. Consider CT chest for followup. Few Concepcion lines at the left lung base, question interstitial edema or fluid overload. 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 Chest/Abdomen CTA 06/16/20 10:44 IMPRESSION: 1. Enlarged left lobe of the thyroid gland which extends substernally. 2. Moderate to large right-sided pleural effusions some a which is loculated superiorly. 3. Right lower lobe atelectasis or pneumonia. 4. Cardiomegaly. 5. No pulmonary emboli. Thyroid Ultrasound 06/17/20 00:00 IMPRESSION: Nodule 1 right lobe: Follow-up at 1, 3, 5 years Nodule 1 left lobe: No follow-up necessary Nodule 2 left lobe: FNA recommended. Chest X-Ray 06/18/20 07:00 IMPRESSION: Persistent mild vascular congestion. Stable right pleural effusion. Chest X-Ray 06/20/20 00:00 IMPRESSION: Persistent small right pleural effusion with right basilar consolidation, unchanged from 06/18/2020. Old CABG with stable cardiomegaly Chest X-Ray 06/23/20 06:00 IMPRESSION: Persistent small right pleural effusion improved from prior exam. Probable underlying atelectasis or pneumonia. Stable cardiomegaly. IMPRESSION/RECOMMENDATION: 1. Atrial flutter/fibrillation with rapid ventricular response. The heart rate is again increased. This may be secondary to patient's constipation and lower abdominal gas pains. We will treat the patient with Dulcolax. We will also give the patient 1 dose of digoxin 0.125 mg IV push. The patient's Lopressor has already been increased 200 mg p.o. twice daily. 2. Constipation: We will treat the patient with Dulcolax. 3. Right lower lobe pneumonia with loculated right lower lobe effusion: Agree with antibiotics. Chest x-ray shows that the patient's pneumonia and pleural effusions are almost resolved. Clinically the patient is does not have evidence of pneumonia. 4. Coronary artery disease:. History of coronary bypass graft surgery patient without any anginal symptoms. 5. Hypertension: Blood pressure appears to be well controlled at present. 6. Diabetes mellitus type 2: None insulin requiring. Continue antidiabetic medication and Accu-Cheks as per protocol. 7. Hyperlipidemia: Continue statins. 8. History of mitral valve replacement with porcine valve. Appears to be functioning normally. 9. Substernal thyroid. Does not appear to be any kind of causing any problems. Thyroid function tests are normal. 10. Right inguinal hernia: S/p surgery. Patient stable. Medications reviewed. Medications added. Medical decision making in view of the patient's recent addition of medication is of high complexity. Medical regimen and management plan discussed with Dr. Lopez provider on the case 40- minute spent on the patient with more than 50% time spent direct patient care. Patient be discharged once the patient has a bowel movement. And also after his heart rate is controlled.
[2020-06-25] MEDS ORDERED: BISACODYL 5 MG TABEC PO PRN (15:08)
--- NOTE | 2020-06-25 16:12 | PDOC PROGRESS REPORT ---
Subjective Subjective:: Per Previous Physician: "VALERIANO HILLIARD is a 80 year old male with history of atrial fibrillation, mitral valve replacement with pig valve on warfarin, triple-vessel bypass, diabetes, hypertension, hypercholesteremia came to the emergency with complaining of increasing shortness of breath. Also to the cough with a gre enish sputum. He denies any fevers. Denies any nausea vomiting diarrhea or abdominal pain. Work-up in the ER shows A. fib with RVR was started on Cardizem drip then was given digoxin. CT of the chest indicate you have right-sided pleural effusion moderate-sized pleural effusion with parapneumonic effusion. Start IV antibiotic therapy. Medical consult was called for admission. INR in the ER is 3.74." 06/25/2020 Patient generally doing well overall although his heart rate continues to be jennifer vated above 120s. I increased his metoprolol to [address] Morgan has ordered a single dose of digoxin. Per patient, he has been discussing with Dr. Morgan potential for an outpatient intervention to address his persistent A. fib. If patient remains uncontrolled from a rate perspective, we could consider STEFANIE and cardioversion here. He would need to go to outside facility to have a more invasive procedure such as ablation. Patient is also constipated and I have added a bowel regimen. Reason For Visit: ATRIAL FIB Physical Exam Vital Signs: Temp Pulse Resp BP Pulse Ox 98.4 F 125 H 16 112/71 96 06/25/20 12:04 06/25/20 12:04 06/25/20 12:04 06/25/20 12:04 06/25/20 12:04 Intake & Output 06/24/20 06/25/20 06/26/20 07:59 06:59 06:59 Intake Total Output Total Balance Weight Exam: General appearance: PRESENT: no acute distress, well-developed, well-nourished Head exam: PRESENT: atraumatic, normocephalic Eye exam: PRESENT: conjunctiva pink. ABSENT: scleral icterus Mouth exam: PRESENT: moist Respiratory exam: PRESENT: clear to auscultation barby. ABSENT: rales, rhonchi, wheezes Cardiovascular exam: PRESENT: Fast rate, irregularly irregular rhythm ABSENT: diastolic murmur, rubs, systolic murmur GI/Abdominal exam: PRESENT: normal bowel sounds, soft. ABSENT: distended, guarding, mass, organolmegaly, rebound, tenderness Neurological exam: PRESENT: alert, awake, oriented to person, oriented to place, oriented to time, oriented to situation Psychiatric exam: PRESENT: appropriate affect, normal mood Skin exam: PRESENT: dry, intact, warm Results Laboratory Results: 06/25/20 05:13 06/25/20 05:13 06/24/20 06/25/20 06/25/20 17:30 05:13 05:13 WBC 10.6 H 8.5 RBC 4.16 L 4.16 L Hgb 12.5 L 12.6 L Hct 36.4 L 36.4 L MCV 88 87 MCH 30.0 30.2 MCHC 34.3 34.6 RDW 13.5 13.6 Plt Count 141 L 122 L Seg Neutrophils % 72.6 Sodium 136.1 L Potassium 3.9 Chloride 102 Carbon Dioxide 23 Anion Gap 11 BUN 22 H Creatinine 1.06 Est GFR ( Amer) > 60 Glucose 123 H Calcium 8.7 06/16/20 06/16/20 06/16/20 09:20 09:20 12:07 Creatine Kinase 49 L CK-MB (CK-2) 1.19 Troponin I 0.015 0.015 NT-Pro-B Natriuret Pep 06/16/20 06/16/20 06/17/20 14:50 19:31 02:15 Creatine Kinase CK-MB (CK-2) Troponin I 0.019 0.041 0.076 NT-Pro-B Natriuret Pep 06/17/20 04:55 Creatine Kinase CK-MB (CK-2) Troponin I NT-Pro-B Natriuret Pep 8040 H Impressions: Chest/Abdomen CTA 06/16/20 10:44 IMPRESSION: 1. Enlarged left lobe of the thyroid gland which extends subst ernally. 2. Moderate to large right-sided pleural effusions some a which is loculated superiorly. 3. Right lower lobe atelectasis or pneumonia. 4. Cardiomegaly. 5. No pulmonary emboli. Thyroid Ultrasound 06/17/20 00:00 IMPRESSION: Nodule 1 right lobe: Follow-up at 1, 3, 5 years Nodule 1 left lobe: No follow-up necessary Nodule 2 left lobe: FNA recommended. Chest X-Ray 06/23/20 06:00 IMPRESSION: Persistent small right pleural effusion improved from prior exam. Probable underlying atelectasis or pneumonia. Stable cardiomegaly. Assessment and Plan - Diagnosis (1) Anticoagulated on Coumadin Is this a current diagnosis for this admission?: Yes (2) Atrial flutter with rapid ventricular response Is this a current diagnosis for this admission?: Yes (3) Diabetes Qualifiers: Diabetes mellitus type: type 2 Is this a current diagnosis for this admission?: No (4) HTN (hypertension) Is this a current diagnosis for this admission?: No (5) Irreducible right inguinal hernia Is this a current diagnosis for this admission?: Yes (6) Loculated pleural effusion Is this a current diagnosis for this admission?: Yes (7) Mitral valve replaced Is this a current diagnosis for this admission?: No (8) Rhinophyma Is this a current diagnosis for this admission?: Yes (9) Right lower lobe pneumonia Is this a current diagnosis for this admission?: Yes (10) Status post aorto-coronary artery bypass graft Is this a current diagnosis for this admission?: Yes (11) Thyroid mass Is this a current diagnosis for this admission?: Yes - Plan Summary Summary: Atrial flutter with rapid ventricular response 06/16/2020-patient admitted for A. fib with RVR. Cardiology consult was requested. Patient was started on Cardizem drip and also given loading dose of digoxin. To do the serial troponins. RS 3.74 to hold Coumadin at this time. GI prophylaxis initiated. Restarted on metoprolol 25 mg p.o. twice daily. Right lower lobe pneumonia 06/16/2020-patient has right lower lobe pneumonia. Blood cultures requested patient start on IV Rocephin and Zithromax. Patient may need right-sided thoracentesis diagnostic thoracentesis. To continue IV Rocephin and Zithromax at this time. Loculated pleural effusion CT chest showed moderate sized right-sided loculated pleural effusion Serial chest x-rays showed effusion notably reduced in size down to a rather small pleural effusion Mitral valve replaced Trend INR Continue Coumadin Goal INR 2-3, no need to bridge HTN (hypertension) Home medications continued T2DM Accu-Chek, sliding scale insulin, glipizide Massively enlarged thyroid Seen on chest CT TSH elevated at 5.19, T4 and T3 normal at 1.32 and 3.56 respectively Thyroid ultrasound showed multiple nodules, one nodule on lymph node with recommended FNA per radiology No ENT support on the weekend, will ask IR if they can perform FNA - Time Time Spent with patient: 25-34 minutes Medications reviewed and adjusted accordingly: Yes Anticipated Discharge Disposition: Home, Self Care Anticipated Discharge Timeframe: within 48 hours - Inpatient Certification Based on my medical assessment, after consideration of the patient's comorbidities, presenting symptoms, or acuity I expect that the services needed warrant INPATIENT care.: Yes I certify that my determination is in accordance with my understanding of Medicare's requirements for reasonable and necessary INPATIENT services [42 CFR 412.3e].: Yes Medical Necessity: Significant Comorbidiites Make Outpatient Treatment Too Risky, Need Close Monitoring Due to Risk of Patient Decompensation, Need For Continuous Telemetry Monitoring, Need for Surgery, Risk of Complication if Not Cared For in Hospital, Risk of Diagnosis Which Will Require Inpatient Eval/Care/Monitoring
[2020-06-25] MEDS: SIMVASTATIN 10 MG TABLET PO SCH (21:39)
[2020-06-25] MEDS: WARFARIN SODIUM 2 MG TABLET PO SCH (21:39)
[2020-06-26 06:35] LABS: INTERNATIONAL RATION (INR) 1.65; PROTHROMBIN TIME 19.6 SEC (11.4-15.4)
[2020-06-26 07:19] LABS: APPEARANCE,URINE CLEAR; BILIRUBIN,URINE NEGATIVE (NEGATIVE); COLOR,URINE YELLOW; GLUCOSE, URINE NEGATIVE (NEGATIVE); KETONES,URINE NEGATIVE (NEGATIVE); LEUKOCYTE ESTERASE,URINE NEGATIVE (NEGATIVE); NITRITE,URINE NEGATIVE (NEGATIVE); PROTEIN,URINE 30 mg/dL (NEGATIVE); UROBILINOGEN,URINE NEGATIVE mg/dL (<2.0)
[2020-06-26] MEDS: INSULIN REG, HUMAN 100 UNIT/ML 3 ML VIAL (PYX) SUBCUT SCH ×4 (09:07→21:13)
[2020-06-26] MEDS: LISINOPRIL 10 MG TABLET PO SCH (09:16)
[2020-06-26] MEDS: TAMSULOSIN HCL 0.4 MG CAP.SR.24H PO SCH (09:16)
[2020-06-26] MEDS: METOPROLOL TARTRATE 100 MG TABLET PO SCH ×2 (09:17→21:13)
[2020-06-26] MEDS: ISOSORBIDE MONONITRATE 60 MG TAB.ER.24H PO SCH (09:17)
[2020-06-26] MEDS: MULTIVITAMIN TABLET PO SCH (09:17)
[2020-06-26] MEDS: FAMOTIDINE 20 MG TABLET PO SCH ×2 (09:17→21:13)
[2020-06-26] MEDS: GLIPIZIDE XL 5 MG TAB.ER.24 PO SCH (09:18)
[2020-06-26] MEDS ORDERED: DIGOXIN INJ 0.5 MG/2 ML AMPULE IV ONE ×2 (12:45→15:44)
--- NOTE | 2020-06-26 15:59 | PDOC PROGRESS REPORT ---
Subjective Subjective:: Per Previous Physician: "VALERIANO HILLIARD is a 80 year old male with history of atrial fibrillation, mitral valve replacement with pig valve on warfarin, triple-vessel bypass, diabetes, hypertension, hypercholesteremia came to the emergency with complaining of increasing shortness of breath. Also to the cough with a gre enish sputum. He denies any fevers. Denies any nausea vomiting diarrhea or abdominal pain. Work-up in the ER shows A. fib with RVR was started on Cardizem drip then was given digoxin. CT of the chest indicate you have right-sided pleural effusion moderate-sized pleural effusion with parapneumonic effusion. Start IV antibiotic therapy. Medical consult was called for admission. INR in the ER is 3.74." 06/25/2020 Patient generally doing well overall although his heart rate continues to be jennifer vated above 120s. I increased his metoprolol to [address] Morgan has ordered a single dose of digoxin. Per patient, he has been discussing with Dr. Morgan potential for an outpatient intervention to address his persistent A. fib. If patient remains uncontrolled from a rate perspective, we could consider STEFANIE and cardioversion here. He would need to go to outside facility to have a more invasive procedure such as ablation. Patient is also constipated and I have added a bowel regimen. 06/26/2020 It does not seem that the increased dose of metoprolol and a small dose of digoxin has had any significant effect on the patient's heart rate. I have added oral diltiazem every 6 hours if it is effective we can switch him to long- acting. Blood pressure is stable but we will need close hemodynamic monitoring in case his blood pressure drops on this med. EKG done today which showed atrial flutter. We may need to consider electrical cardioversion if rate is not controlled on diltiazem. Patient has no new complaints. Reason For Visit: ATRIAL FIB Physical Exam Vital Signs: Temp Pulse Resp BP Pulse Ox 98.2 F 124 H 17 113/81 100 06/26/20 10:00 06/26/20 11:14 06/26/20 11:14 06/26/20 11:14 06/26/20 11:14 Intake & Output 06/25/20 06/26/20 06/27/20 06:59 06:59 06:59 Intake Total 840 730 Output Total 720 100 Balance 120 630 Weight 92.7 kg Exam: General appearance: PRESENT: no acute distress, well-developed, well-nourished, states he feels relatively well today Head exam: PRESENT: atraumatic, normocephalic Eye exam: PRESENT: conjunctiva pink. ABSENT: scleral icterus Mouth exam: PRESENT: moist Respiratory exam: PRESENT: clear to auscultation barby. ABSENT: rales, rhonchi, wheezes Cardiovascular exam: PRESENT: Fast rate, irregularly irregular rhythm ABSENT: diastolic murmur, rubs, systolic murmur GI/Abdominal exam: PRESENT: normal bowel sounds, soft. ABSENT: distended, guarding, mass, organolmegaly, rebound, tenderness Neurological exam: PRESENT: alert, awake, oriented to person, oriented to place, oriented to time, oriented to situation Psychiatric exam: PRESENT: appropriate affect, normal mood Skin exam: PRESENT: dry, intact, warm Results Laboratory Results: 06/25/20 05:13 06/25/20 05:13 06/26/20 05:50 Urine Color YELLOW Urine Appearance CLEAR Urine pH 6.0 Ur Specific [place] 1.020 Urine Protein 30 H Urine Glucose (UA) NEGATIVE Urine Ketones NEGATIVE Urine Blood NEGATIVE Urine Nitrite NEGATIVE Ur Leukocyte Esterase NEGATIVE Urine WBC (Auto) 0 Urine RBC (Auto) 1 06/16/20 06/16/20 06/16/20 09:20 09:20 12:07 Creatine Kinase 49 L CK-MB (CK-2) 1.19 Troponin I 0.015 0.015 NT-Pro-B Natriuret Pep 06/16/20 06/16/20 06/17/20 14:50 19:31 02:15 Creatine Kinase CK-MB (CK-2) Troponin I 0.019 0.041 0.076 NT-Pro-B Natriuret Pep 06/17/20 04:55 Creatine Kinase CK-MB (CK-2) Troponin I NT-Pro-B Natriuret Pep 8040 H Impressions: Chest/Abdomen CTA 06/16/20 10:44 IMPRESSION: 1. Enlarged left lobe of the thyroid gland which extends substernally. 2. Moderate to large right-sided pleural effusions some a which is loculated superiorly. 3. Right lower lobe atelectasis or pneumonia. 4. Cardiomegaly. 5. No pulmonary emboli. Thyroid Ultrasound 06/17/20 00:00 IMPRESSION: Nodule 1 right lobe: Follow-up at 1, 3, 5 years Nodule 1 left lobe: No follow-up necessary Nodule 2 left lobe: FNA recommended. Chest X-Ray 06/23/20 06:00 IMPRESSION: Persistent small right pleural effusion improved from prior exam. Probable underlying atelectasis or pneumonia. Stable cardiomegaly. Assessment and Plan - Diagnosis (1) Anticoagulated on Coumadin Is this a current diagnosis for this admission?: Yes (2) Atrial flutter with rapid ventricular response Is this a current diagnosis for this admission?: Yes (3) Diabetes Qualifiers: Diabetes mellitus type: type 2 Is this a current diagnosis for this admission?: No (4) HTN (hypertension) Is this a current diagnosis for this admission?: No (5) Irreducible right inguinal hernia Is this a current diagnosis for this admission?: Yes (6) Loculated pleural effusion Is this a current diagnosis for this admission?: Yes (7) Mitral valve replaced Is this a current diagnosis for this admission?: No (8) Rhinophyma Is this a current diagnosis for this admission?: Yes (9) Right lower lobe pneumonia Is this a current diagnosis for this admission?: Yes (10) Status post aorto-coronary artery bypass graft Is this a current diagnosis for this admission?: Yes (11) Thyroid mass Is this a current diagnosis for this admission?: Yes - Plan Summary Summary: Atrial flutter with rapid ventricular response -admitted for A. fib with RVR. -Cardiology consult -Cardizem drip and also given loading dose of digoxin which did not have significant effect -serial troponins. -INR initially 3.74 to held Coumadin temporarily -metoprolol 100 mg twice daily, added oral diltiazem 06/26 EKG showed atrial flutter Right lower lobe pneumonia 06/16/2020-patient has right lower lobe pneumonia. Blood cultures requested patient start on IV Rocephin and Zithromax. Patient may need right-sided thoracentesis diagnostic thoracentesis. To continue IV Rocephin and Zithromax at this time. Loculated pleural effusion CT chest showed moderate sized right-sided loculated pleural effusion Serial chest x-rays showed effusion notably reduced in size down to a rather small pleural effusion Mitral valve replaced Trend INR Continue Coumadin Goal INR 2-3, no need to bridge HTN (hypertension) Home medications continued T2DM Accu-Chek, sliding scale insulin, glipizide Massively enlarged thyroid Seen on chest CT TSH elevated at 5.19, T4 and T3 normal at 1.32 and 3.56 respectively Thyroid ultrasound showed multiple nodules, one nodule on lymph node with recommended FNA per radiology IR FNA pending - Time Time Spent with patient: 25-34 minutes Medications reviewed and adjusted accordingly: Yes Anticipated Discharge Disposition: Home, Self Care Anticipated Discharge Timeframe: within 48 hours - Inpatient Certification Based on my medical assessment, after consideration of the patient's comorbidities, presenting symptoms, or acuity I expect that the services needed warrant INPATIENT care.: Yes I certify that my determination is in accordance with my understanding of Medicare's requirements for reasonable and necessary INPATIENT services [42 CFR 412.3e].: Yes Medical Necessity: Significant Comorbidiites Make Outpatient Treatment Too Risky, Need Close Monitoring Due to Risk of Patient Decompensation, Need For Continuous Telemetry Monitoring, Risk of Complication if Not Cared For in Hospital, Risk of Diagnosis Which Will Require Inpatient Eval/Care/Monitoring
[2020-06-26] MEDS: DILTIAZEM HCL 30 MG TABLET PO SCH ×2 (16:10→18:34)
--- NOTE | 2020-06-26 17:04 | RADIOLOGY REPORT (SQ) ---
EXAM DESCRIPTION: CHEST 2 VIEWS IMAGES COMPLETED DATE/TIME: 06/26/2020 4:55 pm REASON FOR STUDY: chf COMPARISON: Chest films 06/23/2020, 06/20/2020, 06/18/2020 EXAM PARAMETERS: NUMBER OF VIEWS: two views TECHNIQUE: Digital Frontal and Lateral radiographic views of the chest acquired. RADIATION DOSE: NA LIMITATIONS: none FINDINGS: LUNGS AND PLEURA: Persistent small right, trace left pleural effusions in the posterior co stophrenic sulci. Minimal right basilar airspace disease persists, atelectasis versus pneumonia. Left lung grossly clear. No pneumothorax MEDIASTINUM AND HILAR STRUCTURES: No masses or contour abnormalities. HEART AND VASCULAR STRUCTURES: Old sternotomy post CABG. Stable mild cardiomegaly BONES: No acute findings. HARDWARE: None in the chest. OTHER: No other significant finding. IMPRESSION: Stable small right, trace left pleural effusion Persistent right basilar consolidation atelectasis versus pneumonia TECHNICAL DOCUMENTATION: JOB ID: [id number] 2010 [employer]- All Rights Reserved Reading location - IP/workstation name: [email or web address]
--- NOTE | 2020-06-26 19:50 | EKG REPORT ---
SEVERITY:- ABNORMAL ECG - ATRIAL FIBRILLATION WITH RAPID VENTRICULAR RATE RBBB AND LPFB : Confirmed by: Abundio Miles MD 26-Jun-2020 19:50:25
--- NOTE | 2020-06-26 20:37 | Progress Note ---
Provider Note Provider Note: CARDIOLOGY PROGRESS NOTE by Dr. Staci Rust on 06/26/2020. SUBJECTIVE: The patient continues to be in atrial fibrillation. His heart rate remains in the 120s. He is asymptomatic from it. He denies any chest pain or discomfort. There is no PND orthopnea leg edema. We will give 1 dose of digoxin and check a dig level and may be add digoxin daily. Also will place the patient on Lasix 20 mg p.o. daily in view of the cardiomyopathy that the patient has. Note diltiazem is associated with a grave untoward prognosis in a patient with coronary artery disease and LV dysfunction. Hence would avoid this. Also unless the rate is controlled cardioversion might be only temporarily successful and the patient will go back into atrial fibrillation. I suspect that the patient has longstanding atrial fibrillation/flutter. The watchman procedure is not for heart control. The patient is too old for ablation of atrial fibrillation focus. Since this is more involved in atrial flutter ablation. The patient does not have classical atrial flutter. Hence would not subject the patient to the rigorous procedure of atrial fibrillation ablation. The patient denies any PND orthopnea or leg edema. His chest x-ray shows that there is a small right pleural effusion. No definite evidence of congestive heart failure or pulmonary edema by chest x-ray on my review. The patient is still subtherapeutic on his Coumadin. Also of note that the patient in spite of his heart rate being in the 120s is hemodynamically stable. The patient did have a bowel movement. And he denies any abdominal pain nausea vomiting. He is tolerating a diet. PHYSICAL EXAMINATION: The patient is well-built and well-nourished in no acute distress Selected Entries 06/26/20 06/26/20 15:43 16:00 Temperature 97.7 F Temperature Oral Source Heart Rate ( 105 Monitors) Respiratory 17 Rate Blood Pressure 118/82 Blood Pressure 94 Mean BP Location Left Arm BP Position Supine O2 Sat by Pulse 96 Oximetry Oxygen Delivery Room Air Method HEAD: Is atraumatic normocephalic. EYES: Pupils are equal round regular reactive to light and accommodation. Extraocular movements are normal. There is no conjunctival pallor. There is no scleral icterus. EARS: Tympanic mem branes are intact. External auditory canals are clear. NOSE: There is no deviated nasal septum. There is no inflammation nasal mucous membrane. MOUTH: There is no redness of the oropharynx. There is no exudates. There is no bleeding from the gums. THROAT: There is no redness of the oropharynx. There is no exudates in the throat. SKIN: There is no petechia or ecchymosis. There is no skin lesions or skin rashes. NECK: Is supple. There is no JVD. Carotids are equal there is no bruit. There is no lymphadenopathy. There is no goiter.. There is no accessory muscle respiration use. Trachea central. LUNGS: There is dullness and absent breath sounds in the right lower lobe. The rest of the lungs are clear without any rhonchi rales or wheezing. HEART: S1-S2 is heard. S1 is of variable intensity. There is no S3 gallop. There is no S4 gallop.There is systolic murmur left sternal border and the apex there is no rub. ABDOMEN: Is soft. Nontender. There is no hepatosplenomegaly. Bowel sounds are well heard. There is a right inguinal dressing is dry and clean.. EXTREMITIES: Femorals are well felt. There is no femoral bruits. Leg pulses well felt. There is no pedal edema. There is no DVT or cellulitis. There is no calf tenderness. There is no cyanosis or clubbing. CHART CALCULATOR: The patient is conscious awake alert oriented x3 with no focal deficits. PSYCHIATRIC: The p atient judgment insight are intact his affect is normal. Echo cardiogram shows mild pulmonary hypertension and moderately reduced LV ejection fraction. This is slightly lower than the patient's ejection fraction done in the office in the recent past. This may be due to atrial fibrillation with rapid ventricular response. Chest X-Ray 06/16/20 09:15 IMPRESSION: Volume loss and consolidation right lower lobe with fullness of the right hilum and small right pleural effusion. Postobstructive pneumonia from right hilar mass may be present. Consider CT chest for followup. Few Concepcion lines at the left lung base, question interstitial edema or fluid overload. 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 Chest/Abdomen CTA 06/16/20 10:44 IMPRESSION: 1. Enlarged left lobe of the thyroid gland which extends substernally. 2. Moderate to large right-sided pleural effusions some a which is loculated superiorly. 3. Right lower lobe atelectasis or pneumonia. 4. Cardiomegaly. 5. No pulmonary emboli. Thyroid Ultrasound 06/17/20 00:00 IMPRESSION: Nodule 1 right lobe: Follow-up at 1, 3, 5 years Nodule 1 left lobe: No follow-up necessary Nodule 2 left lobe: FNA recommended. Chest X-Ray 06/18/20 07:00 IMPRESSION: Persistent mild vascular congestion. Stable right pleural ef fusion. Chest X-Ray 06/20/20 00:00 IMPRESSION: Persistent small right pleural effusion with right basilar consolidation, unchanged from 06/18/2020. Old CABG with stable cardiomegaly Chest X-Ray 06/23/20 06:00 IMPRESSION: Persistent small right pleural effusion improved from prior exam. Probable underlying atelectasis or pneumonia. Stable cardiomegaly. Chest X-Ray 06/26/20 07:45 IMPRESSION: Stable small right, trace left pleural effusion Persistent right basilar consolidation atelectasis versus pneumonia Labs- Entire Visit 06/16/20 06/16/20 06/16/20 09:20 09:20 09:20 WBC 7.5 RBC 4.49 Hgb 13.8 Hct 39.9 MCV 89 MCH 30.6 MCHC 34.4 RDW 13.8 Plt Count 167 Lymph % (Auto) 19.0 [place] % (Auto) 8.4 Eos % (Auto) 2.8 Baso % (Auto) 0.8 Absolute Neuts (auto) 5.2 Absolute Lymphs (auto) 1.4 Absolute Monos (auto) 0.6 Absolute Eos (auto) 0.2 Absolute Basos (auto) 0.1 Seg Neutrophils % 69.0 PT INR Sodium 142.3 Potassium 4.7 Chloride 108 H Carbon Dioxide 22 Anion Gap 12 BUN 26 H Creatinine 1.21 Est GFR ( Amer) > 60 Est GFR (MDRD) Non-Af 58 L Glucose 180 H POC Glucose Hemoglobin A1c % Calcium 9.4 Magnesium Total Bilirubin 1.2 Direct Bilirubin 0.4 Neonat Total Bilirubin Not Reportable Neonat Direct Bilirubin Not Reportable Neonat Indirect Bili Not Reportable AST 35 ALT 19 Alkaline Phosphatase 86 Creatine Kinase 49 L CK-MB (CK-2) 1.19 Troponin I 0.015 NT-Pro-B Natriuret Pep Total Protein 7.5 Albumin 4.2 Triglycerides Cholesterol LDL Cholesterol Direct VLDL Cholesterol HDL Cholesterol Lipase TSH Free T4 Free T3 pg/mL Urine Color Urine Appearance Urine pH Ur Specific [place] Urine Protein Urine Glucose (UA) Urine Ketones Urine Blood Urine Nitrite Urine Bilirubin Urine Urobilinogen Ur Leukocyte Esterase Urine WBC (Auto) Urine RBC (Auto) Urine Mucus (Auto) Urine Ascorbic Acid Digoxin SARS-CoV-2 (PCR) Blood Type 06/16/20 06/16/20 06/16/20 09:20 12:07 14:50 WBC RBC Hgb Hct MCV MCH MCHC RDW Plt Count Lymph % (Auto) [place] % (Auto) Eos % (Auto) Baso % (Auto) Absolute Neuts (auto) Absolute Lymphs (auto) Absolute Monos (auto) Absolute Eos (auto) Absolute Basos (auto) Seg Neutrophils % PT 37.0 H INR 3.78 Sodium Potassium Chloride Carbon Dioxide Anion Gap BUN Creatinine Est GFR ( Amer) Est GFR (MDRD) Non-Af Glucose POC Glucose Hemoglobin A1c % Calcium Magnesium Total Bilirubin Direct Bilirubin Neonat Total Bilirubin Neonat Direct Bilirubin Neonat Indirect Bili AST ALT Alkaline Phosphatase Creatine Kinase CK-MB (CK-2) Troponin I 0.015 0.019 NT-Pro-B Natriuret Pep Total Protein Albumin Triglycerides Cholesterol LDL Cholesterol Direct VLDL Cholesterol HDL Cholesterol Lipase TSH Free T4 Free T3 pg/mL Urine Color Urine Appearance Urine pH Ur Specific [place] Urine Protein Urine Glucose (UA) Urine Ketones Urine Blood Urine Nitrite Urine Bilirubin Urine Urobilinogen Ur Leukocyte Esterase Urine WBC (Auto) Urine RBC (Auto) Urine Mucus (Auto) Urine Ascorbic Acid Digoxin SARS-CoV-2 (PCR) Blood Type 06/16/20 06/16/20 06/16/20 16:25 19:31 21:59 WBC RBC Hgb Hct MCV MCH MCHC RDW Plt Count Lymph % (Auto) [place] % (Auto) Eos % (Auto) Baso % (Auto) Absolute Neuts (auto) Absolute Lymphs (auto) Absolute Monos (auto) Absolute Eos (auto) Absolute Basos (auto) Seg Neutrophils % PT INR Sodium Potassium Chloride Carbon Dioxide Anion Gap BUN Creatinine Est GFR ( Amer) Est GFR (MDRD) Non-Af Glucose POC Glucose 188 H 160 H Hemoglobin A1c % Calcium Magnesium Total Bilirubin Direct Bilirubin Neonat Total Bilirubin Neonat Direct Bilirubin Neonat Indirect Bili AST ALT Alkaline Phosphatase Creatine Kinase CK-MB (CK-2) Troponin I 0.041 NT-Pro-B Natriuret Pep Total Protein Albumin Triglycerides Cholesterol LDL Cholesterol Direct VLDL Cholesterol HDL Cholesterol Lipase TSH Free T4 Free T3 pg/mL Urine Color Urine Appearance Urine pH Ur Specific [place] Urine Protein Urine Glucose (UA) Urine Ketones Urine Blood Urine Nitrite Urine Bilirubin Urine Urobilinogen Ur Leukocyte Esterase Urine WBC (Auto) Urine RBC (Auto) Urine Mucus (Auto) Urine Ascorbic Acid Digoxin SARS-CoV-2 (PCR) Blood Type 06/17/20 06/17/20 06/17/20 02:15 04:55 04:55 WBC 6.6 RBC 4.38 Hgb 13.1 L Hct 38.9 MCV 89 MCH 30.0 MCHC 33.8 RDW 13.6 Plt Count 139 L Lymph % (Auto) 16.4 [place] % (Auto) 9.3 Eos % (Auto) 5.0 Baso % (Auto) 0.8 Absolute Neuts (auto) 4.5 Absolute Lymphs (auto) 1.1 Absolute Monos (auto) 0.6 Absolute Eos (auto) 0.3 Absolute Basos (auto) 0.1 Seg Neutrophils % 68.5 PT 34.9 H INR 3.51 Sodium Potassium Chloride Carbon Dioxide Anion Gap BUN Creatinine Est GFR ( Amer) Est GFR (MDRD) Non-Af Glucose POC Glucose Hemoglobin A1c % Calcium Magnesium Total Bilirubin Direct Bilirubin Neonat Total Bilirubin Neonat Direct Bilirubin Neonat Indirect Bili AST ALT Alkaline Phosphatase Creatine Kinase CK-MB (CK-2) Troponin I 0.076 NT-Pro-B Natriuret Pep Total Protein Albumin Triglycerides Cholesterol LDL Cholesterol Direct VLDL Cholesterol HDL Cholesterol Lipase TSH Free T4 Free T3 pg/mL Urine Color Urine Appearance Urine pH Ur Specific [place] Urine Protein Urine Glucose (UA) Urine Ketones Urine Blood Urine Nitrite Urine Bilirubin Urine Urobilinogen Ur Leukocyte Esterase Urine WBC (Auto) Urine RBC (Auto) Urine Mucus (Auto) Urine Ascorbic Acid Digoxin SARS-CoV-2 (PCR) Blood Type 06/17/20 06/17/20 06/17/20 04:55 04:55 04:55 WBC RBC Hgb Hct MCV MCH MCHC RDW Plt Count Lymph % (Auto) [place] % (Auto) Eos % (Auto) Baso % (Auto) Absolute Neuts (auto) Absolute Lymphs (auto) Absolute Monos (auto) Absolute Eos (auto) Absolute Basos (auto) Seg Neutrophils % PT INR Sodium 138.9 Potassium 4.0 Chloride 108 H Carbon Dioxide 22 Anion Gap 9 BUN 26 H Creatinine 1.08 Est GFR ( Amer) > 60 Est GFR (MDRD) Non-Af > 60 Glucose 153 H POC Glucose Hemoglobin A1c % 5.6 Calcium 8.8 Magnesium 2.1 Total Bilirubin 1.1 Direct Bilirubin 0.3 Neonat Total Bilirubin Not Reportable Neonat Direct Bilirubin Not Reportable Neonat Indirect Bili Not Reportable AST 27 ALT 16 Alkaline Phosphatase 72 Creatine Kinase CK-MB (CK-2) Troponin I NT-Pro-B Natriuret Pep 8040 H Total Protein 6.0 L Albumin 3.3 L Triglycerides 73 Cholesterol 110.97 LDL Cholesterol Direct 57 VLDL Cholesterol 15.0 HDL Cholesterol 40 Lipase 75.6 TSH Free T4 Free T3 pg/mL Urine Color Urine Appearance Urine pH Ur Specific [place] Urine Protein Urine Glucose (UA) Urine Ketones Urine Blood Urine Nitrite Urine Bilirubin Urine Urobilinogen Ur Leukocyte Esterase Urine WBC (Auto) Urine RBC (Auto) Urine Mucus (Auto) Urine Ascorbic Acid Digoxin SARS-CoV-2 (PCR) Blood Type 06/17/20 06/17/20 06/17/20 04:55 07:19 11:09 WBC RBC Hgb Hct MCV MCH MCHC RDW Plt Count Lymph % (Auto) [place] % (Auto) Eos % (Auto) Baso % (Auto) Absolute Neuts (auto) Absolute Lymphs (auto) Absolute Monos (auto) Absolute Eos (auto) Absolute Basos (auto) Seg Neutrophils % PT INR Sodium Potassium Chloride Carbon Dioxide Anion Gap BUN Creatinine Est GFR ( Amer) Est GFR (MDRD) Non-Af Glucose POC Glucose 137 H 235 H Hemoglobin A1c % Calcium Magnesium Total Bilirubin Direct Bilirubin Neonat Total Bilirubin Neonat Direct Bilirubin Neonat Indirect Bili AST ALT Alkaline Phosphatase Creatine Kinase CK-MB (CK-2) Troponin I NT-Pro-B Natriuret Pep Total Protein Albumin Triglycerides Cholesterol LDL Cholesterol Direct VLDL Cholesterol HDL Cholesterol Lipase TSH 4.89 H Free T4 1.32 Free T3 pg/mL 3.56 Urine Color Urine Appearance Urine pH Ur Specific [place] Urine Protein Urine Glucose (UA) Urine Ketones Urine Blood Urine Nitrite Urine Bilirubin Urine Urobilinogen Ur Leukocyte Esterase Urine WBC (Auto) Urine RBC (Auto) Urine Mucus (Auto) Urine Ascorbic Acid Digoxin SARS-CoV-2 (PCR) Blood Type 06/17/20 06/17/20 06/18/20 16:11 20:58 06:13 WBC 7.7 RBC 4.34 L Hgb 13.3 L Hct 38.8 MCV 89 MCH 30.5 MCHC 34.2 RDW 13.5 Plt Count 138 L Lymph % (Auto) 20.0 [place] % (Auto) 9.0 Eos % (Auto) 7.9 H Baso % (Auto) 0.8 Absolute Neuts (auto) 4.8 Absolute Lymphs (auto) 1.5 Absolute Monos (auto) 0.7 Absolute Eos (auto) 0.6 Absolute Basos (auto) 0.1 Seg Neutrophils % 62.3 PT INR Sodium Potassium Chloride Carbon Dioxide Anion Gap BUN Creatinine Est GFR ( Amer) Est GFR (MDRD) Non-Af Glucose POC Glucose 167 H 137 H Hemoglobin A1c % Calcium Magnesium Total Bilirubin Direct Bilirubin Neonat Total Bilirubin Neonat Direct Bilirubin Neonat Indirect Bili AST ALT Alkaline Phosphatase Creatine Kinase CK-MB (CK-2) Troponin I NT-Pro-B Natriuret Pep Total Protein Albumin Triglycerides Cholesterol LDL Cholesterol Direct VLDL Cholesterol HDL Cholesterol Lipase TSH Free T4 Free T3 pg/mL Urine Color Urine Appearance Urine pH Ur Specific [place] Urine Protein Urine Glucose (UA) Urine Ketones Urine Blood Urine Nitrite Urine Bilirubin Urine Urobilinogen Ur Leukocyte Esterase Urine WBC (Auto) Urine RBC (Auto) Urine Mucus (Auto) Urine Ascorbic Acid Digoxin SARS-CoV-2 (PCR) Blood Type 06/18/20 06/18/20 06/18/20 06:13 06:13 07:54 WBC RBC Hgb Hct MCV MCH MCHC RDW Plt Count Lymph % (Auto) [place] % (Auto) Eos % (Auto) Baso % (Auto) Absolute Neuts (auto) Absolute Lymphs (auto) Absolute Monos (auto) Absolute Eos (auto) Absolute Basos (auto) Seg Neutrophils % PT INR Sodium 141.1 Potassium 3.9 Chloride 108 H Carbon Dioxide 23 Anion Gap 10 BUN 24 H Creatinine 1.15 Est GFR ( Amer) > 60 Est GFR (MDRD) Non-Af > 60 Glucose 113 H POC Glucose 122 H Hemoglobin A1c % Calcium 8.8 Magnesium 2.0 Total Bilirubin 0.8 Direct Bilirubin 0.4 Neonat Total Bilirubin Not Reportable Neonat Direct Bilirubin Not Reportable Neonat Indirect Bili Not Reportable AST 28 ALT 15 Alkaline Phosphatase 77 Creatine Kinase CK-MB (CK-2) Troponin I NT-Pro-B Natriuret Pep Total Protein 6.1 L Albumin 3.2 L Triglycerides Cholesterol LDL Cholesterol Direct VLDL Cholesterol HDL Cholesterol Lipase TSH 5.19 H Free T4 Free T3 pg/mL Urine Color Urine Appearance Urine pH Ur Specific [place] Urine Protein Urine Glucose (UA) Urine Ketones Urine Blood Urine Nitrite Urine Bilirubin Urine Urobilinogen Ur Leukocyte Esterase Urine WBC (Auto) Urine RBC (Auto) Urine Mucus (Auto) Urine Ascorbic Acid Digoxin 0.67 L SARS-CoV-2 (PCR) Blood Type 06/18/20 06/18/20 06/18/20 09:05 11:39 16:11 WBC RBC Hgb Hct MCV MCH MCHC RDW Plt Count Lymph % (Auto) [place] % (Auto) Eos % (Auto) Baso % (Auto) Absolute Neuts (auto) Absolute Lymphs (auto) Absolute Monos (auto) Absolute Eos (auto) Absolute Basos (auto) Seg Neutrophils % PT 30.0 H INR 2.87 Sodium Potassium Chloride Carbon Dioxide Anion Gap BUN Creatinine Est GFR ( Amer) Est GFR (MDRD) Non-Af Glucose POC Glucose 259 H 75 Hemoglobin A1c % Calcium Magnesium Total Bilirubin Direct Bilirubin Neonat Total Bilirubin Neonat Direct Bilirubin Neonat Indirect Bili AST ALT Alkaline Phosphatase Creatine Kinase CK-MB (CK-2) Troponin I NT-Pro-B Natriuret Pep Total Protein Albumin Triglycerides Cholesterol LDL Cholesterol Direct VLDL Cholesterol HDL Cholesterol Lipase TSH Free T4 Free T3 pg/mL Urine Color Urine Appearance Urine pH Ur Specific [place] Urine Protein Urine Glucose (UA) Urine Ketones Urine Blood Urine Nitrite Urine Bilirubin Urine Urobilinogen Ur Leukocyte Esterase Urine WBC (Auto) Urine RBC (Auto) Urine Mucus (Auto) Urine Ascorbic Acid Digoxin SARS-CoV-2 (PCR) Blood Type 06/18/20 06/19/20 06/19/20 21:07 05:35 07:39 WBC RBC Hgb Hct MCV MCH MCHC RDW Plt Count Lymph % (Auto) [place] % (Auto) Eos % (Auto) Baso % (Auto) Absolute Neuts (auto) Absolute Lymphs (auto) Absolute Monos (auto) Absolute Eos (auto) Absolute Basos (auto) Seg Neutrophils % PT 26.3 H INR 2.41 Sodium Potassium Chloride Carbon Dioxide Anion Gap BUN Creatinine Est GFR ( Amer) Est GFR (MDRD) Non-Af Glucose POC Glucose 84 101 Hemoglobin A1c % Calcium Magnesium Total Bilirubin Direct Bilirubin Neonat Total Bilirubin Neonat Direct Bilirubin Neonat Indirect Bili AST ALT Alkaline Phosphatase Creatine Kinase CK-MB (CK-2) Troponin I NT-Pro-B Natriuret Pep Total Protein Albumin Triglycerides Cholesterol LDL Cholesterol Direct VLDL Cholesterol HDL Cholesterol Lipase TSH Free T4 Free T3 pg/mL Urine Color Urine Appearance Urine pH Ur Specific [place] Urine Protein Urine Glucose (UA) Urine Ketones Urine Blood Urine Nitrite Urine Bilirubin Urine Urobilinogen Ur Leukocyte Esterase Urine WBC (Auto) Urine RBC (Auto) Urine Mucus (Auto) Urine Ascorbic Acid Digoxin SARS-CoV-2 (PCR) Blood Type 06/19/20 06/19/20 06/19/20 11:38 14:34 15:52 WBC RBC Hgb Hct MCV MCH MCHC RDW Plt Count Lymph % (Auto) [place] % (Auto) Eos % (Auto) Baso % (Auto) Absolute Neuts (auto) Absolute Lymphs (auto) Absolute Monos (auto) Absolute Eos (auto) Absolute Basos (auto) Seg Neutrophils % PT INR Sodium Potassium Chloride Carbon Dioxide Anion Gap BUN Creatinine Est GFR ( Amer) Est GFR (MDRD) Non-Af Glucose POC Glucose 140 H Hemoglobin A1c % Calcium Magnesium Total Bilirubin Direct Bilirubin Neonat Total Bilirubin Neonat Direct Bilirubin Neonat Indirect Bili AST ALT Alkaline Phosphatase Creatine Kinase CK-MB (CK-2) Troponin I NT-Pro-B Natriuret Pep Total Protein Albumin Triglycerides Cholesterol LDL Cholesterol Direct VLDL Cholesterol HDL Cholesterol Lipase TSH Free T4 Free T3 pg/mL Urine Color Urine Appearance Urine pH Ur Specific [place] Urine Protein Urine Glucose (UA) Urine Ketones Urine Blood Urine Nitrite Urine Bilirubin Urine Urobilinogen Ur Leukocyte Esterase Urine WBC (Auto) Urine RBC (Auto) Urine Mucus (Auto) Urine Ascorbic Acid Digoxin SARS-CoV-2 (PCR) NEGATIVE Blood Type O POSITIVE 06/19/20 06/19/20 06/19/20 16:11 20:48 21:26 WBC 6.8 RBC 4.02 L Hgb 12.3 L Hct 35.2 L MCV 88 MCH 30.7 MCHC 35.0 RDW 13.3 Plt Count 144 L Lymph % (Auto) 27.9 [place] % (Auto) 10.5 Eos % (Auto) 7.9 H Baso % (Auto) 0.9 Absolute Neuts (auto) 3.6 Absolute Lymphs (auto) 1.9 Absolute Monos (auto) 0.7 Absolute Eos (auto) 0.5 Absolute Basos (auto) 0.1 Seg Neutrophils % 52.8 PT INR Sodium Potassium Chloride Carbon Dioxide Anion Gap BUN Creatinine Est GFR ( Amer) Est GFR (MDRD) Non-Af Glucose POC Glucose 88 70 Hemoglobin A1c % Calcium Magnesium Total Bilirubin Direct Bilirubin Neonat Total Bilirubin Neonat Direct Bilirubin Neonat Indirect Bili AST ALT Alkaline Phosphatase Creatine Kinase CK-MB (CK-2) Troponin I NT-Pro-B Natriuret Pep Total Protein Albumin Triglycerides Cholesterol LDL Cholesterol Direct VLDL Cholesterol HDL Cholesterol Lipase TSH Free T4 Free T3 pg/mL Urine Color Urine Appearance Urine pH Ur Specific [place] Urine Protein Urine Glucose (UA) Urine Ketones Urine Blood Urine Nitrite Urine Bilirubin Urine Urobilinogen Ur Leukocyte Esterase Urine WBC (Auto) Urine RBC (Auto) Urine Mucus (Auto) Urine Ascorbic Acid Digoxin SARS-CoV-2 (PCR) Blood Type 06/20/20 06/20/20 06/20/20 05:59 05:59 05:59 WBC 6.4 RBC 4.32 L Hgb 13.0 L Hct 38.1 MCV 88 MCH 30.0 MCHC 34.1 RDW 13.3 Plt Count 132 L Lymph % (Auto) 21.4 [place] % (Auto) 9.9 Eos % (Auto) 8.1 H Baso % (Auto) 0.8 Absolute Neuts (auto) 3.8 Absolute Lymphs (auto) 1.4 Absolute Monos (auto) 0.6 Absolute Eos (auto) 0.5 Absolute Basos (auto) 0.1 Seg Neutrophils % 59.8 PT 20.9 H INR 1.79 Sodium 140.6 Potassium 3.7 Chloride 107 Carbon Dioxide 24 Anion Gap 10 BUN 21 H Creatinine 1.10 Est GFR ( Amer) > 60 Est GFR (MDRD) Non-Af > 60 Glucose 108 POC Glucose Hemoglobin A1c % Calcium 8.9 Magnesium 1.9 Total Bilirubin 0.9 Direct Bilirubin 0.2 Neonat Total Bilirubin Not Reportable Neonat Direct Bilirubin Not Reportable Neonat Indirect Bili Not Reportable AST 40 ALT 20 Alkaline Phosphatase 65 Creatine Kinase CK-MB (CK-2) Troponin I NT-Pro-B Natriuret Pep Total Protein 5.9 L Albumin 3.1 L Triglycerides Cholesterol LDL Cholesterol Direct VLDL Cholesterol HDL Cholesterol Lipase TSH Free T4 Free T3 pg/mL Urine Color Urine Appearance Urine pH Ur Specific [place] Urine Protein Urine Glucose (UA) Urine Ketones Urine Blood Urine Nitrite Urine Bilirubin Urine Urobilinogen Ur Leukocyte Esterase Urine WBC (Auto) Urine RBC (Auto) Urine Mucus (Auto) Urine Ascorbic Acid Digoxin SARS-CoV-2 (PCR) Blood Type 06/20/20 06/20/20 06/20/20 08:02 12:20 16:48 WBC RBC Hgb Hct MCV MCH MCHC RDW Plt Count Lymph % (Auto) [place] % (Auto) Eos % (Auto) Baso % (Auto) Absolute Neuts (auto) Absolute Lymphs (auto) Absolute Monos (auto) Absolute Eos (auto) Absolute Basos (auto) Seg Neutrophils % PT INR Sodium Potassium Chloride Carbon Dioxide Anion Gap BUN Creatinine Est GFR ( Amer) Est GFR (MDRD) Non-Af Glucose POC Glucose 105 111 H 123 H Hemoglobin A1c % Calcium Magnesium Total Bilirubin Direct Bilirubin Neonat Total Bilirubin Neonat Direct Bilirubin Neonat Indirect Bili AST ALT Alkaline Phosphatase Creatine Kinase CK-MB (CK-2) Troponin I NT-Pro-B Natriuret Pep Total Protein Albumin Triglycerides Cholesterol LDL Cholesterol Direct VLDL Cholesterol HDL Cholesterol Lipase TSH Free T4 Free T3 pg/mL Urine Color Urine Appearance Urine pH Ur Specific [place] Urine Protein Urine Glucose (UA) Urine Ketones Urine Blood Urine Nitrite Urine Bilirubin Urine Urobilinogen Ur Leukocyte Esterase Urine WBC (Auto) Urine RBC (Auto) Urine Mucus (Auto) Urine Ascorbic Acid Digoxin SARS-CoV-2 (PCR) Blood Type 06/20/20 06/21/20 06/21/20 21:43 06:14 07:39 WBC RBC Hgb Hct MCV MCH MCHC RDW Plt Count Lymph % (Auto) [place] % (Auto) Eos % (Auto) Baso % (Auto) Absolute Neuts (auto) Absolute Lymphs (auto) Absolute Monos (auto) Absolute Eos (auto) Absolute Basos (auto) Seg Neutrophils % PT 21.6 H INR 1.87 Sodium Potassium Chloride Carbon Dioxide Anion Gap BUN Creatinine Est GFR ( Amer) Est GFR (MDRD) Non-Af Glucose POC Glucose 168 H 95 Hemoglobin A1c % Calcium Magnesium Total Bilirubin Direct Bilirubin Neonat Total Bilirubin Neonat Direct Bilirubin Neonat Indirect Bili AST ALT Alkaline Phosphatase Creatine Kinase CK-MB (CK-2) Troponin I NT-Pro-B Natriuret Pep Total Protein Albumin Triglycerides Cholesterol LDL Cholesterol Direct VLDL Cholesterol HDL Cholesterol Lipase TSH Free T4 Free T3 pg/mL Urine Color Urine Appearance Urine pH Ur Specific [place] Urine Protein Urine Glucose (UA) Urine Ketones Urine Blood Urine Nitrite Urine Bilirubin Urine Urobilinogen Ur Leukocyte Esterase Urine WBC (Auto) Urine RBC (Auto) Urine Mucus (Auto) Urine Ascorbic Acid Digoxin SARS-CoV-2 (PCR) Blood Type 06/21/20 06/21/20 06/21/20 11:23 16:23 21:16 WBC RBC Hgb Hct MCV MCH MCHC RDW Plt Count Lymph % (Auto) [place] % (Auto) Eos % (Auto) Baso % (Auto) Absolute Neuts (auto) Absolute Lymphs (auto) Absolute Monos (auto) Absolute Eos (auto) Absolute Basos (auto) Seg Neutrophils % PT INR Sodium Potassium Chloride Carbon Dioxide Anion Gap BUN Creatinine Est GFR ( Amer) Est GFR (MDRD) Non-Af Glucose POC Glucose 158 H 151 H 119 H Hemoglobin A1c % Calcium Magnesium Total Bilirubin Direct Bilirubin Neonat Total Bilirubin Neonat Direct Bilirubin Neonat Indirect Bili AST ALT Alkaline Phosphatase Creatine Kinase CK-MB (CK-2) Troponin I NT-Pro-B Natriuret Pep Total Protein Albumin Triglycerides Cholesterol LDL Cholesterol Direct VLDL Cholesterol HDL Cholesterol Lipase TSH Free T4 Free T3 pg/mL Urine Color Urine Appearance Urine pH Ur Specific [place] Urine Protein Urine Glucose (UA) Urine Ketones Urine Blood Urine Nitrite Urine Bilirubin Urine Urobilinogen Ur Leukocyte Esterase Urine WBC (Auto) Urine RBC (Auto) Urine Mucus (Auto) Urine Ascorbic Acid Digoxin SARS-CoV-2 (PCR) Blood Type 06/22/20 06/22/20 06/22/20 05:44 05:44 05:44 WBC 6.7 RBC 4.34 L Hgb 12.9 L Hct 38.1 MCV 88 MCH 29.6 MCHC 33.7 RDW 13.5 Plt Count 122 L Lymph % (Auto) 23.8 Harrison % (Auto) 10.2 Eos % (Auto) 9.6 H Baso % (Auto) 0.9 Absolute Neuts (auto) 3.7 Absolute Lymphs (auto) 1.6 Absolute Monos (auto) 0.7 Absolute Eos (auto) 0.6 Absolute Basos (auto) 0.1 Seg Neutrophils % 55.5 PT 20.3 H INR 1.73 Sodium 138.5 Potassium 4.1 Chloride 105 Carbon Dioxide 24 Anion Gap 10 BUN 18 Creatinine 1.23 Est GFR ( Amer) > 60 Est GFR (MDRD) Non-Af 57 L Glucose 81 POC Glucose Hemoglobin A1c % Calcium 8.8 Magnesium Total Bilirubin Direct Bilirubin Neonat Total Bilirubin Neonat Direct Bilirubin Neonat Indirect Bili AST ALT Alkaline Phosphatase Creatine Kinase CK-MB (CK-2) Troponin I NT-Pro-B Natriuret Pep Total Protein Albumin Triglycerides Cholesterol LDL Cholesterol Direct VLDL Cholesterol HDL Cholesterol Lipase TSH Free T4 Free T3 pg/mL Urine Color Urine Appearance Urine pH Ur Specific [place] Urine Protein Urine Glucose (UA) Urine Ketones Urine Blood Urine Nitrite Urine Bilirubin Urine Urobilinogen Ur Leukocyte Esterase Urine WBC (Auto) Urine RBC (Auto) Urine Mucus (Auto) Urine Ascorbic Acid Digoxin SARS-CoV-2 (PCR) Blood Type 06/22/20 06/22/20 06/22/20 07:25 11:13 16:34 WBC RBC Hgb Hct MCV MCH MCHC RDW Plt Count Lymph % (Auto) Harrison % (Auto) Eos % (Auto) Baso % (Auto) Absolute Neuts (auto) Absolute Lymphs (auto) Absolute Monos (auto) Absolute Eos (auto) Absolute Basos (auto) Seg Neutrophils % PT INR Sodium Potassium Chloride Carbon Dioxide Anion Gap BUN Creatinine Est GFR ( Amer) Est GFR (MDRD) Non-Af Glucose POC Glucose 82 106 107 Hemoglobin A1c % Calcium Magnesium Total Bilirubin Direct Bilirubin Neonat Total Bilirubin Neonat Direct Bilirubin Neonat Indirect Bili AST ALT Alkaline Phosphatase Creatine Kinase CK-MB (CK-2) Troponin I NT-Pro-B Natriuret Pep Total Protein Albumin Triglycerides Cholesterol LDL Cholesterol Direct VLDL Cholesterol HDL Cholesterol Lipase TSH Free T4 Free T3 pg/mL Urine Color Urine Appearance Urine pH Ur Specific [place] Urine Protein Urine Glucose (UA) Urine Ketones Urine Blood Urine Nitrite Urine Bilirubin Urine Urobilinogen Ur Leukocyte Esterase Urine WBC (Auto) Urine RBC (Auto) Urine Mucus (Auto) Urine Ascorbic Acid Digoxin SARS-CoV-2 (PCR) Blood Type 06/22/20 06/23/20 06/23/20 21:01 06:05 08:06 WBC RBC Hgb Hct MCV MCH MCHC RDW Plt Count Lymph % (Auto) Harrison % (Auto) Eos % (Auto) Baso % (Auto) Absolute Neuts (auto) Absolute Lymphs (auto) Absolute Monos (auto) Absolute Eos (auto) Absolute Basos (auto) Seg Neutrophils % PT 19.0 H INR 1.58 Sodium Potassium Chloride Carbon Dioxide Anion Gap BUN Creatinine Est GFR ( Amer) Est GFR (MDRD) Non-Af Glucose POC Glucose 114 H 89 Hemoglobin A1c % Calcium Magnesium Total Bilirubin Direct Bilirubin Neonat Total Bilirubin Neonat Direct Bilirubin Neonat Indirect Bili AST ALT Alkaline Phosphatase Creatine Kinase CK-MB (CK-2) Troponin I NT-Pro-B Natriuret Pep Total Protein Albumin Triglycerides Cholesterol LDL Cholesterol Direct VLDL Cholesterol HDL Cholesterol Lipase TSH Free T4 Free T3 pg/mL Urine Color Urine Appearance Urine pH Ur Specific [place] Urine Protein Urine Glucose (UA) Urine Ketones Urine Blood Urine Nitrite Urine Bilirubin Urine Urobilinogen Ur Leukocyte Esterase Urine WBC (Auto) Urine RBC (Auto) Urine Mucus (Auto) Urine Ascorbic Acid Digoxin SARS-CoV-2 (PCR) Blood Type 06/23/20 06/23/20 06/23/20 11:55 16:36 21:16 WBC RBC Hgb Hct MCV MCH MCHC RDW Plt Count Lymph % (Auto) Harrison % (Auto) Eos % (Auto) Baso % (Auto) Absolute Neuts (auto) Absolute Lymphs (auto) Absolute Monos (auto) Absolute Eos (auto) Absolute Basos (auto) Seg Neutrophils % PT INR Sodium Potassium Chloride Carbon Dioxide Anion Gap BUN Creatinine Est GFR ( Amer) Est GFR (MDRD) Non-Af Glucose POC Glucose 93 82 115 H Hemoglobin A1c % Calcium Magnesium Total Bilirubin Direct Bilirubin Neonat Total Bilirubin Neonat Direct Bilirubin Neonat Indirect Bili AST ALT Alkaline Phosphatase Creatine Kinase CK-MB (CK-2) Troponin I NT-Pro-B Natriuret Pep Total Protein Albumin Triglycerides Cholesterol LDL Cholesterol Direct VLDL Cholesterol HDL Cholesterol Lipase TSH Free T4 Free T3 pg/mL Urine Color Urine Appearance Urine pH Ur Specific [place] Urine Protein Urine Glucose (UA) Urine Ketones Urine Blood Urine Nitrite Urine Bilirubin Urine Urobilinogen Ur Leukocyte Esterase Urine WBC (Auto) Urine RBC (Auto) Urine Mucus (Auto) Urine Ascorbic Acid Digoxin SARS-CoV-2 (PCR) Blood Type 06/24/20 06/24/20 06/24/20 05:45 08:05 11:39 WBC RBC Hgb Hct MCV MCH MCHC RDW Plt Count Lymph % (Auto) Harrison % (Auto) Eos % (Auto) Baso % (Auto) Absolute Neuts (auto) Absolute Lymphs (auto) Absolute Monos (auto) Absolute Eos (auto) Absolute Basos (auto) Seg Neutrophils % PT 19.6 H INR 1.65 Sodium Potassium Chloride Carbon Dioxide Anion Gap BUN Creatinine Est GFR ( Amer) Est GFR (MDRD) Non-Af Glucose POC Glucose 96 159 H Hemoglobin A1c % Calcium Magnesium Total Bilirubin Direct Bilirubin Neonat Total Bilirubin Neonat Direct Bilirubin Neonat Indirect Bili AST ALT Alkaline Phosphatase Creatine Kinase CK-MB (CK-2) Troponin I NT-Pro-B Natriuret Pep Total Protein Albumin Triglycerides Cholesterol LDL Cholesterol Direct VLDL Cholesterol HDL Cholesterol Lipase TSH Free T4 Free T3 pg/mL Urine Color Urine Appearance Urine pH Ur Specific [place] Urine Protein Urine Glucose (UA) Urine Ketones Urine Blood Urine Nitrite Urine Bilirubin Urine Urobilinogen Ur Leukocyte Esterase Urine WBC (Auto) Urine RBC (Auto) Urine Mucus (Auto) Urine Ascorbic Acid Digoxin SARS-CoV-2 (PCR) Blood Type 06/24/20 06/24/20 06/24/20 15:38 17:30 21:31 WBC 10.6 H RBC 4.16 L Hgb 12.5 L Hct 36.4 L MCV 88 MCH 30.0 MCHC 34.3 RDW 13.5 Plt Count 141 L Lymph % (Auto) Harrison % (Auto) Eos % (Auto) Baso % (Auto) Absolute Neuts (auto) Absolute Lymphs (auto) Absolute Monos (auto) Absolute Eos (auto) Absolute Basos (auto) Seg Neutrophils % PT INR Sodium Potassium Chloride Carbon Dioxide Anion Gap BUN Creatinine Est GFR ( Amer) Est GFR (MDRD) Non-Af Glucose POC Glucose 151 H 152 H Hemoglobin A1c % Calcium Magnesium Total Bilirubin Direct Bilirubin Neonat Total Bilirubin Neonat Direct Bilirubin Neonat Indirect Bili AST ALT Alkaline Phosphatase Creatine Kinase CK-MB (CK-2) Troponin I NT-Pro-B Natriuret Pep Total Protein Albumin Triglycerides Cholesterol LDL Cholesterol Direct VLDL Cholesterol HDL Cholesterol Lipase TSH Free T4 Free T3 pg/mL Urine Color Urine Appearance Urine pH Ur Specific [place] Urine Protein Urine Glucose (UA) Urine Ketones Urine Blood Urine Nitrite Urine Bilirubin Urine Urobilinogen Ur Leukocyte Esterase Urine WBC (Auto) Urine RBC (Auto) Urine Mucus (Auto) Urine Ascorbic Acid Digoxin SARS-CoV-2 (PCR) Blood Type 06/25/20 06/25/20 06/25/20 05:13 05:13 05:13 WBC 8.5 RBC 4.16 L Hgb 12.6 L Hct 36.4 L MCV 87 MCH 30.2 MCHC 34.6 RDW 13.6 Plt Count 122 L Lymph % (Auto) 11.9 L [place] % (Auto) 11.2 Eos % (Auto) 3.9 Baso % (Auto) 0.4 Absolute Neuts (auto) 6.2 Absolute Lymphs (auto) 1.0 Absolute Monos (auto) 1.0 Absolute Eos (auto) 0.3 Absolute Basos (auto) 0.0 Seg Neutrophils % 72.6 PT 20.3 H INR 1.72 Sodium 136.1 L Potassium 3.9 Chloride 102 Carbon Dioxide 23 Anion Gap 11 BUN 22 H Creatinine 1.06 Est GFR ( Amer) > 60 Est GFR (MDRD) Non-Af > 60 Glucose 123 H POC Glucose Hemoglobin A1c % Calcium 8.7 Magnesium Total Bilirubin Direct Bilirubin Neonat Total Bilirubin Neonat Direct Bilirubin Neonat Indirect Bili AST ALT Alkaline Phosphatase Creatine Kinase CK-MB (CK-2) Troponin I NT-Pro-B Natriuret Pep Total Protein Albumin Triglycerides Cholesterol LDL Cholesterol Direct VLDL Cholesterol HDL Cholesterol Lipase TSH Free T4 Free T3 pg/mL Urine Color Urine Appearance Urine pH Ur Specific [place] Urine Protein Urine Glucose (UA) Urine Ketones Urine Blood Urine Nitrite Urine Bilirubin Urine Urobilinogen Ur Leukocyte Esterase Urine WBC (Auto) Urine RBC (Auto) Urine Mucus (Auto) Urine Ascorbic Acid Digoxin SARS-CoV-2 (PCR) Blood Type 06/25/20 06/25/20 06/25/20 08:06 12:05 16:14 WBC RBC Hgb Hct MCV MCH MCHC RDW Plt Count Lymph % (Auto) Harrison % (Auto) Eos % (Auto) Baso % (Auto) Absolute Neuts (auto) Absolute Lymphs (auto) Absolute Monos (auto) Absolute Eos (auto) Absolute Basos (auto) Seg Neutrophils % PT INR Sodium Potassium Chloride Carbon Dioxide Anion Gap BUN Creatinine Est GFR ( Amer) Est GFR (MDRD) Non-Af Glucose POC Glucose 126 H 224 H 126 H Hemoglobin A1c % Calcium Magnesium Total Bilirubin Direct Bilirubin Neonat Total Bilirubin Neonat Direct Bilirubin Neonat Indirect Bili AST ALT Alkaline Phosphatase Creatine Kinase CK-MB (CK-2) Troponin I NT-Pro-B Natriuret Pep Total Protein Albumin Triglycerides Cholesterol LDL Cholesterol Direct VLDL Cholesterol HDL Cholesterol Lipase TSH Free T4 Free T3 pg/mL Urine Color Urine Appearance Urine pH Ur Specific [place] Urine Protein Urine Glucose (UA) Urine Ketones Urine Blood Urine Nitrite Urine Bilirubin Urine Urobilinogen Ur Leukocyte Esterase Urine WBC (Auto) Urine RBC (Auto) Urine Mucus (Auto) Urine Ascorbic Acid Digoxin SARS-CoV-2 (PCR) Blood Type 06/25/20 06/26/20 06/26/20 21:28 05:48 05:50 WBC RBC Hgb Hct MCV MCH MCHC RDW Plt Count Lymph % (Auto) [place] % (Auto) Eos % (Auto) Baso % (Auto) Absolute Neuts (auto) Absolute Lymphs (auto) Absolute Monos (auto) Absolute Eos (auto) Absolute Basos (auto) Seg Neutrophils % PT 19.6 H INR 1.65 Sodium Potassium Chloride Carbon Dioxide Anion Gap BUN Creatinine Est GFR ( Amer) Est GFR (MDRD) Non-Af Glucose POC Glucose 133 H Hemoglobin A1c % Calcium Magnesium Total Bilirubin Direct Bilirubin Neonat Total Bilirubin Neonat Direct Bilirubin Neonat Indirect Bili AST ALT Alkaline Phosphatase Creatine Kinase CK-MB (CK-2) Troponin I NT-Pro-B Natriuret Pep Total Protein Albumin Triglycerides Cholesterol LDL Cholesterol Direct VLDL Cholesterol HDL Cholesterol Lipase TSH Free T4 Free T3 pg/mL Urine Color YELLOW Urine Appearance CLEAR Urine pH 6.0 Ur Specific [place] 1.020 Urine Protein 30 H Urine Glucose (UA) NEGATIVE Urine Ketones NEGATIVE Urine Blood NEGATIVE Urine Nitrite NEGATIVE Urine Bilirubin NEGATIVE Urine Urobilinogen NEGATIVE Ur Leukocyte Esterase NEGATIVE Urine WBC (Auto) 0 Urine RBC (Auto) 1 Urine Mucus (Auto) RARE Urine Ascorbic Acid NEGATIVE Digoxin SARS-CoV-2 (PCR) Blood Type 06/26/20 06/26/20 06/26/20 07:38 11:16 15:46 WBC RBC Hgb Hct MCV MCH MCHC RDW Plt Count Lymph % (Auto) [place] % (Auto) Eos % (Auto) Baso % (Auto) Absolute Neuts (auto) Absolute Lymphs (auto) Absolute Monos (auto) Absolute Eos (auto) Absolute Basos (auto) Seg Neutrophils % PT INR Sodium Potassium Chloride Carbon Dioxide Anion Gap BUN Creatinine Est GFR ( Amer) Est GFR (MDRD) Non-Af Glucose POC Glucose 138 H 193 H 162 H Hemoglobin A1c % Calcium Magnesium Total Bilirubin Direct Bilirubin Neonat Total Bilirubin Neonat Direct Bilirubin Neonat Indirect Bili AST ALT Alkaline Phosphatase Creatine Kinase CK-MB (CK-2) Troponin I NT-Pro-B Natriuret Pep Total Protein Albumin Triglycerides Cholesterol LDL Cholesterol Direct VLDL Cholesterol HDL Cholesterol Lipase TSH Free T4 Free T3 pg/mL Urine Color Urine Appearance Urine pH Ur Specific [place] Urine Protein Urine Glucose (UA) Urine Ketones Urine Blood Urine Nitrite Urine Bilirubin Urine Urobilinogen Ur Leukocyte Esterase Urine WBC (Auto) Urine RBC (Auto) Urine Mucus (Auto) Urine Ascorbic Acid Digoxin SARS-CoV-2 (PCR) Blood Type IMPRESSION/RECOMMENDATION: 1. Atrial flutter/fibrillation with rapid ventricular response. The heart rate is again increased. This may be secondary to patient's constipation and lower abdominal gas pains. We will treat the patient with Dulcolax. We will also give the patient 1 dose of digoxin 0.125 mg IV push. The patient's Lopressor has already been increased 200 mg p.o. twice daily. 2. Constipation: We will treat the patient with Dulcolax. 3. Right lower lobe pneumonia with loculated right lower lobe effusion: Agree with antibiotics. Chest x-ray shows that the patient's pneumonia and pleural effusions are almost resolved. Clinically the patient is does not have evidence of pneumonia. 4. Coronary artery disease:. History of coronary bypass graft surgery patient without any anginal symptoms. 5. Hypertension: Blood pressure appears to be well controlled at present. 6. Diabetes mellitus type 2: None insulin requiring. Continue antidiabetic medication and Accu-Cheks as per protocol. 7. Hyperlipidemia: Continue statins. 8. History of mitral valve replacement with porcine valve. Appears to be functioning normally. 9. Substernal thyroid. Does not appear to be any kind of causing any problems. Thyroid function tests are normal. 10. Right inguinal hernia: S/p surgery. Patient stable. Medications reviewed. Medical management and management plan discussed with attending provider on the case. Medications adjusted. Discussed with the patient also. Medical decision making is of high complexity. 40 minutes spent with the patient more than 50% of time spent in direct patient care.
[2020-06-26] MEDS: WARFARIN SODIUM 2 MG TABLET PO SCH (21:12)
[2020-06-26] MEDS: SIMVASTATIN 10 MG TABLET PO SCH (21:13)
--- NOTE | 2020-06-26 21:51 | XCELERA REPORT ---
[address] [address] Transthoracic Echocardiogram Report Name: VALERIANO HILLIARD Age: 80 yrs Gender: Male : 1940 Patient Status: Inpatient Patient Location: [address] [place] [address] Study Date: 06/26/2020 05:35 PM Height: 75 in Weight: 204 lb BSA: 2.2 m2 Procedure: A two-dimensional transthoracic echocardiogram with color flow and Doppler was performed. Study Quality: Poor. Reason For Study: CHF History: CHF. Ordering Physician: ERNESTINE PEREZ Performed By: Constance Drake Interpretation Summary Poor endocardial defenition and tachycardia makes it difficult t assess LVEF accuately.There is probably moderate global hypokinesis.LVEF is probably 45%.. The left ventricle is mildly dilated. There is moderate concentric left ventricular hypertrophy. LV diastolic function could not be adequately assessed due to atrial fibrilation. No defenite LV thrombbus.Cannot assess ASD,VSD , or PFO. The right ventricle is mildly dilated. The right ventricular systolic function is mildly reduced. The right atrium is mildly dilated. The left atrium is mildly dilated. Bioprosthetic Mitral valve with mild stenosis. There is no aortic valvular vegetation. There is no aortic valve stenosis There is aortic sclerosis without aortic stenosis. There is a mild amount of aortic regurgitation There is no tricuspid stenosis. There is a mild amount of tricuspid regurgitation There is mild pulmonary hypertension by echo RVSP is 41 to 46 mm of Hg , with RA mean of 115 to 20. There is no pulmonic valvular stenosis. There is a mild to moderate amount of pulmonic regurgitation The aortic root is mildly dilated The inferior vena cava appeared dilated and decreased < 50% with respiration (RAP 15-20 mmHg) There is no pericardial effusion. MMode/2D Measurements & Calculations RVDd: 3.2 cm LVIDd: 5.5 cm FS: 17.2 % Ao root diam: 3.8 cm IVSd: 1.5 cm LVIDs: 4.5 cm EDV(Teich): 144.7 ml Ao root area: 11.1 cm2 LVPWd: 1.4 cm ESV(Teich): 93.4 ml LA dimension: 4.5 cm EF(Teich): 35.5 % Doppler Measurements & Calculations MV E max gualberto: MV P1/2t max gualberto: Ao V2 max: AI max gualberto: 187.3 cm/sec 206.8 cm/sec 140.0 cm/sec 406.6 cm/sec MV A max gualberto: MV P1/2t: 81.8 msec Ao max PG: AI max P.3 cm/sec MVA(P1/2t): 2.7 cm2 7.8 mmHg 66.1 mmHg MV E/A: 1.7 MV dec slope: AI dec slope: 192.3 cm/sec2 740.2 cm/sec2 AI P1/2t: MV dec time: 619.2 msec 0.19 sec LV V1 max PG: PA V2 max: PI end-d gualberto: TR max gualberto: 2.8 mmHg 90.8 cm/sec 165.9 cm/sec 253.4 cm/sec LV V1 max: PA max P.3 mmHg TR max P.1 cm/sec 25.7 mmHg AV P1/2t-pr_phl: MV P1/2t-pr_phl: 619.2 msec 81.8 msec Left Ventricle Poor endocardial defenition and tachycardia makes it difficult t assess LVEF accuately.There is probably moderate global hypokinesis.LVEF is probably 45%.. The left ventricle is mildly dilated. There is moderate concentric left ventricular hypertrophy. LV diastolic function could not be adequately assessed due to atrial fibrilation. No defenite LV thrombbus.Cannot assess ASD,VSD , or PFO. Right Ventricle The right ventricle is mildly dilated. The right ventricular systolic function is mildly reduced. Atria The right atrium is mildly dilated. The left atrium is mildly dilated. Mitral Valve Bioprosthetic Mitral valve with mild stenosis. There is a trace amount of mitral regurgitation. Aortic Valve There is no aortic valvular vegetation. There is no aortic valve stenosis. There is aortic sclerosis without aortic stenosis. There is a mild amount of aortic regurgitation. Tricuspid Valve There is no tricuspid stenosis. There is a mild amount of tricuspid regurgitation. There is mild pulmonary hypertension by echo. RVSP is 41 to 46 mm of Hg , with RA mean of 115 to 20. Pulmonic Valve There is no pulmonic valvular stenosis. There is a mild to moderate amount of pulmonic regurgitation. Great Vessels The aortic root is mildly dilated. The inferior vena cava appeared dilated and decreased < 50% with respiration (RAP 15-20 mmHg). Effusions There is no pericardial effusion. : ERNESTINE PEREZ, Staci
[2020-06-27 04:12] LABS: APPEARANCE,URINE CLEAR; BILIRUBIN,URINE NEGATIVE (NEGATIVE); COLOR,URINE YELLOW; GLUCOSE, URINE NEGATIVE (NEGATIVE); KETONES,URINE NEGATIVE (NEGATIVE); LEUKOCYTE ESTERASE,URINE NEGATIVE (NEGATIVE); NITRITE,URINE NEGATIVE (NEGATIVE); PROTEIN,URINE 30 mg/dL (NEGATIVE); URINE SPECIFIC GRAVITY 1.017
[2020-06-27] MEDS: FUROSEMIDE 20 MG TABLET PO SCH (05:17)
[2020-06-27 06:48] LABS: INTERNATIONAL RATION (INR) 1.66; PROTHROMBIN TIME 19.7 SEC (11.4-15.4)
[2020-06-27] MEDS: INSULIN REG, HUMAN 100 UNIT/ML 3 ML VIAL (PYX) SUBCUT SCH ×4 (07:52→21:50)
[2020-06-27] MEDS ORDERED: DIGOXIN INJ 0.5 MG/2 ML AMPULE IV SCH (08:00)
[2020-06-27] MEDS ORDERED: LORAZEPAM INJ 2 MG/1 ML VIAL IV ONE (08:45)
[2020-06-27] MEDS: GLIPIZIDE XL 5 MG TAB.ER.24 PO SCH (09:55)
[2020-06-27] MEDS: MULTIVITAMIN TABLET PO SCH (09:55)
[2020-06-27] MEDS: ISOSORBIDE MONONITRATE 60 MG TAB.ER.24H PO SCH (09:55)
[2020-06-27] MEDS: LISINOPRIL 10 MG TABLET PO SCH (09:55)
[2020-06-27] MEDS: TAMSULOSIN HCL 0.4 MG CAP.SR.24H PO SCH (09:55)
[2020-06-27] MEDS: METOPROLOL TARTRATE 100 MG TABLET PO SCH ×2 (09:55→21:11)
[2020-06-27] MEDS: FAMOTIDINE 20 MG TABLET PO SCH ×2 (09:55→21:11)
[2020-06-27] MEDS ORDERED: METOPROLOL TARTRATE PF/INJ 5 MG/5 ML SDV IV ONE (10:00)
[2020-06-27] MEDS ORDERED: DIGOXIN INJ 0.5 MG/2 ML AMPULE IV ONE (11:00)
[2020-06-27 14:01] LABS: INTERNATIONAL RATION (INR) 1.67; PROTHROMBIN TIME 19.9 SEC (11.4-15.4)
--- NOTE | 2020-06-27 17:31 | PDOC PROGRESS REPORT ---
Subjective Subjective:: Per Previous Physician: "VALERIANO HILLIARD is a 80 year old male with history of atrial fibrillation, mitral valve replacement with pig valve on warfarin, triple-vessel bypass, diabetes, hypertension, hypercholesteremia came to the emergency with complaining of increasing shortness of breath. Also to the cough with a gre enish sputum. He denies any fevers. Denies any nausea vomiting diarrhea or abdominal pain. Work-up in the ER shows A. fib with RVR was started on Cardizem drip then was given digoxin. CT of the chest indicate you have right-sided pleural effusion moderate-sized pleural effusion with parapneumonic effusion. Start IV antibiotic therapy. Medical consult was called for admission. INR in the ER is 3.74." 06/25/2020 Patient generally doing well overall although his heart rate continues to be jennifer vated above 120s. I increased his metoprolol to [address] Morgan has ordered a single dose of digoxin. Per patient, he has been discussing with Dr. Morgan potential for an outpatient intervention to address his persistent A. fib. If patient remains uncontrolled from a rate perspective, we could consider STEFANIE and cardioversion here. He would need to go to outside facility to have a more invasive procedure such as ablation. Patient is also constipated and I have added a bowel regimen. 06/26/2020 It does not seem that the increased dose of metoprolol and a small dose of digoxin has had any significant effect on the patient's heart rate. I have added oral diltiazem every 6 hours if it is effective we can switch him to long- acting. Blood pressure is stable but we will need close hemodynamic monitoring in case his blood pressure drops on this med. EKG done today which showed atrial flutter. We may need to consider electrical cardioversion if rate is not controlled on diltiazem. Patient has no new complaints. 06/27/2020 Patient seems to be doing well today. It looks like the dose of diltiazem he was given yesterday brought his heart rate down to the 70s and 80s until the effect of this medication more often Dr. Morgan discontinued it. Per my review of the literature, I believe patients with moderate to severe systolic heart failure with EF less than 40% are primarily at risk for worsening heart failure when given calcium channel blockers. Mr. Hilliard has an EF according to Dr. Morgan's read of 40 to 45%. Also, patient was given IV diltiazem on admission with consistently good control of his heart rate. My only concern regarding continuing the patient on long-term diltiazem as if his systolic heart failure eventually worsens, he could have some ill effects at that time although this is merely a possibility in the future. Patient has had multiple doses of digoxin which have had little to no effect on his rate/rhythm. I discussed the case with Dr. Morgan today and he is planning potential cardioversion which she will discuss with Dr. Miles. Patient will need a STEFANIE prior to cardioversion. Patient is in agreement with this plan. Reason For Visit: ATRIAL FIB Physical Exam Vital Signs: Temp Pulse Resp BP Pulse Ox 97.2 F 80 19 138/66 H 97 06/27/20 10:00 06/27/20 15:43 06/27/20 11:55 06/27/20 11:55 06/27/20 11:55 Intake & Output 06/26/20 06/27/20 06/28/20 06:59 06:59 06:59 Intake Total 840 1350 260 Output Total 720 1075 550 Balance 120 275 -290 Weight 92.7 kg 98.1 kg Exam: General appearance: PRESENT: no acute distress, well-developed, well-nourished, states he still has a high heart rate Head exam: PRESENT: atraumatic, normocephalic Eye exam: PRESENT: conjunctiva pink. ABSENT: scleral icterus Mouth exam: PRESENT: moist Respiratory exam: PRESENT: clear to auscultation barby. ABSENT: rales, rhonchi, wheezes Cardiovascular exam: PRESENT: Fast rate, irregularly irregular rhythm ABSENT: diastolic murmur, rubs, systolic murmur GI/Abdominal exam: PRESENT: normal bowel sounds, soft. ABSENT: distended, guarding, mass, organolmegaly, rebound, tenderness Neurological exam: PRESENT: alert, awake, oriented to person, oriented to place, oriented to time, oriented to situation Psychiatric exam: PRESENT: appropriate affect, normal mood Skin exam: PRESENT: dry, intact, warm Results Laboratory Results: 06/25/20 05:13 06/25/20 05:13 06/27/20 03:53 Urine Color YELLOW Urine Appearance CLEAR Urine pH 7.0 Ur Specific [place] 1.017 Urine Protein 30 H Urine Glucose (UA) NEGATIVE Urine Ketones NEGATIVE Urine Blood NEGATIVE Urine Nitrite NEGATIVE Ur Leukocyte Esterase NEGATIVE Urine WBC (Auto) 1 06/16/20 06/16/20 06/16/20 09:20 09:20 12:07 Creatine Kinase 49 L CK-MB (CK-2) 1.19 Troponin I 0.015 0.015 NT-Pro-B Natriuret Pep 06/16/20 06/16/20 06/17/20 14:50 19:31 02:15 Creatine Kinase CK-MB (CK-2) Troponin I 0.019 0.041 0.076 NT-Pro-B Natriuret Pep 06/17/20 04:55 Creatine Kinase CK-MB (CK-2) Troponin I NT-Pro-B Natriuret Pep 8040 H Impressions: Chest/Abdomen CTA 06/16/20 10:44 IMPRESSION: 1. Enlarged left lobe of the thyroid gland which extends substernally. 2. Moderate to large right-sided pleural effusions some a which is loculated superiorly. 3. Right lower lobe atelectasis or pneumonia. 4. Cardiomegaly. 5. No pulmonary emboli. Thyroid Ultrasound 06/17/20 00:00 IMPRESSION: Nodule 1 right lobe: Follow-up at 1, 3, 5 years Nodule 1 left lobe: No follow-up necessary Nodule 2 left lobe: FNA recommended. Chest X-Ray 06/26/20 07:45 IMPRESSION: Stable small right, trace left pleural effusion Persistent right basilar consolidation atelectasis versus pneumonia Assessment and Plan - Diagnosis (1) Anticoagulated on Coumadin Is this a current diagnosis for this admission?: Yes (2) Atrial flutter with rapid ventricular response Is this a current diagnosis for this admission?: Yes (3) Diabetes Qualifiers: Diabetes mellitus type: type 2 Is this a current diagnosis for this admission?: No (4) HTN (hypertension) Is this a current diagnosis for this admission?: No (5) Irreducible right inguinal hernia Is this a current diagnosis for this admission?: Yes (6) Loculated pleural effusion Is this a current diagnosis for this admission?: Yes (7) Mitral valve replaced Is this a current diagnosis for this admission?: No (8) Rhinophyma Is this a current diagnosis for this admission?: Yes (9) Right lower lobe pneumonia Is this a current diagnosis for this admission?: Yes (10) Status post aorto-coronary artery bypass graft Is this a current diagnosis for this admission?: Yes (11) Thyroid mass Is this a current diagnosis for this admission?: Yes - Plan Summary Summary: Atrial flutter with rapid ventricular response -admitted for A. fib with RVR. -Cardiology consult -Cardizem drip and also given loading dose of digoxin which did not have significant effect -serial troponins. -INR initially 3.74 to held Coumadin temporarily -metoprolol 100 mg twice daily, added oral diltiazem which building performance specialist has discontinued 06/26 EKG showed atrial flutter Dr. Morgan discussing STEFANIE and cardioversion with Dr. Miles Right lower lobe pneumonia 06/16/2020-patient has right lower lobe pneumonia. Blood cultures requested patient start on IV Rocephin and Zithromax. Patient may need right-sided thoracentesis diagnostic thoracentesis. Antibiotics completed with ceftriaxone/azithromycin Loculated pleural effusion CT chest showed moderate sized right-sided loculated pleural effusion Serial chest x-rays showed effusion notably reduced in size down to a rather small pleural effusion Mitral valve replaced Trend INR Continue Coumadin Goal INR 2-3, no need to bridge HTN (hypertension) Home medications continued T2DM Accu-Chek, sliding scale insulin, glipizide Massively enlarged thyroid Seen on chest CT TSH elevated at 5.19, T4 and T3 normal at 1.32 and 3.56 respectively Thyroid ultrasound showed multiple nodules, one nodule on lymph node with recommended FNA per radiology IR FNA pending - Time Time Spent with patient: 25-34 minutes Medications reviewed and adjusted accordingly: Yes Anticipated Discharge Disposition: Home, Self Care Anticipated Discharge Timeframe: within 48 hours - Inpatient Certification Based on my medical assessment, after consideration of the patient's comorbidities, presenting symptoms, or acuity I expect that the services needed warrant INPATIENT care.: Yes I certify that my determination is in accordance with my understanding of Medicare's requirements for reasonable and necessary INPATIENT services [42 CFR 412.3e].: Yes Medical Necessity: Significant Comorbidiites Make Outpatient Treatment Too Risky, Need Close Monitoring Due to Risk of Patient Decompensation, Need For Continuous Telemetry Monitoring, Risk of Complication if Not Cared For in Hospital, Risk of Diagnosis Which Will Require Inpatient Eval/Care/Monitoring
[2020-06-27 18:53] LABS: HEMATOCRIT 38.2 % (37.9-51.0); HEMOGLOBIN 12.7 g/dL (13.5-17.0); MEAN CORPUSCULAR HEMOGLOBIN 29.6 pg (27.0-33.4); MEAN CORPUSCULAR HGB CONC 33.3 g/dL (32.0-36.0); MEAN CORPUSCULAR VOLUME 89 fl (80-97); PLATELET COUNT 146 10^3/uL (150-450); RED CELL DISTRIBUTION WIDTH 13.4 % (11.5-14.0); WHITE BLOOD COUNT 6.9 10^3/uL (4.0-10.5)
[2020-06-27] MEDS: SIMVASTATIN 10 MG TABLET PO SCH (21:11)
--- NOTE | 2020-06-27 21:13 | Progress Note ---
Provider Note Provider Note: CARDIOLOGY progress note by Dr. Staci Rust on 06/27/2020. SUBJECTIVE: The past the patient's heart rate was difficult to control but later after 2 dose of digoxin intravenously the heart rate did come down. It seems when the patient is asleep the heart rate remains well controlled. The patient denies any cough. He denies any chest pain discomfort. There is no shortness of breath there is no PND orthopnea or leg edema. There is no significant pauses or ventricular arrhythmias on the monitor. There is no leg edema. PHYSICAL EXAMINATION: The patient is well-built in no acute distress. Selected Entries 06/27/20 06/27/20 15:18 15:43 Pulse Rate 80 Respiratory 20 Rate Blood Pressure 112/52 L Blood Pressure 72 Mean BP Location Left Arm BP Position Supine O2 Sat by Pulse 96 Oximetry Oxygen Delivery Room Air Method HEAD: Is atraumatic normocephalic. EYES: Pupils are equal round regular reactive to light and accommodation. Extraocular movements are normal. There is no conjunctival pallor. There is no scleral icterus. EARS: Tympanic m embranes are intact. External auditory canals are clear. NOSE: There is no deviated nasal septum. There is no inflammation nasal mucous membrane. MOUTH: There is no redness of the oropharynx. There is no exudates. There is no bleeding from the gums. THROAT: There is no redness of the oropharynx. There is no exudates in the throat. SKIN: There is no petechia or ecchymosis. There is no skin lesions or skin rashes. NECK: Is supple. There is no JVD. Carotids are equal there is no bruit. There is no lymphadenopathy. There is no goiter.. There is no accessory muscle respiration use. Trachea central. LUNGS: There is dullness and absent breath sounds in the right lower lobe. The rest of the lungs are clear without any rhonchi rales or wheezing. HEART: S1-S2 is heard. S1 is of variable intensity. There is no S3 gallop. There is no S4 gallop.There is systolic murmur left sternal border and the apex there is no rub. ABDOMEN: Is soft. Nontender. There is no hepatosplenomegaly. Bowel sounds are well heard. There is a right inguinal dressing is dry and clean.. EXTREMITIES: Femorals are well felt. There is no femoral bruits. Leg pulses well felt. There is no pedal edema. There is no DVT or cellulitis. There is no calf tenderness. There is no cyanosis or clubbing. [employer]: The patient is conscious awake alert oriented x3 with no focal deficits. PSYCHIATRIC: The patient judgment insight are intact his affect is normal. Labs- All tests 24 hr 06/27/20 06/27/20 06/27/20 03:53 05:39 05:39 WBC RBC Hgb Hct MCV MCH MCHC RDW Plt Count PT 19.7 H INR 1.66 POC Glucose Urine Color YELLOW Urine Appearance CLEAR Urine pH 7.0 Ur Specific [place] 1.017 Urine Protein 30 H Urine Glucose (UA) NEGATIVE Urine Ketones NEGATIVE Urine Blood NEGATIVE Urine Nitrite NEGATIVE Urine Bilirubin NEGATIVE Urine Urobilinogen 2.0 H Ur Leukocyte Esterase NEGATIVE Urine WBC (Auto) 1 Urine Mucus (Auto) RARE Urine Ascorbic Acid NEGATIVE Digoxin 0.73 L 06/27/20 06/27/20 06/27/20 07:31 11:57 12:44 WBC RBC Hgb Hct MCV MCH MCHC RDW Plt Count PT 19.9 H INR 1.67 POC Glucose 95 166 H Urine Color Urine Appearance Urine pH Ur Specific [place] Urine Protein Urine Glucose (UA) Urine Ketones Urine Blood Urine Nitrite Urine Bilirubin Urine Urobilinogen Ur Leukocyte Esterase Urine WBC (Auto) Urine Mucus (Auto) Urine Ascorbic Acid Digoxin 06/27/20 06/27/20 06/27/20 15:21 18:46 21:27 WBC 6.9 RBC 4.30 L Hgb 12.7 L Hct 38.2 MCV 89 MCH 29.6 MCHC 33.3 RDW 13.4 Plt Count 146 L PT INR POC Glucose 168 H 80 Urine Color Urine Appearance Urine pH Ur Specific [place] Urine Protein Urine Glucose (UA) Urine Ketones Urine Blood Urine Nitrite Urine Bilirubin Urine Urobilinogen Ur Leukocyte Esterase Urine WBC (Auto) Urine Mucus (Auto) Urine Ascorbic Acid Digoxin Chest X-Ray 06/16/20 09:15 IMPRESSION: Volume loss and consolidation right lower lobe with fullness of the right hilum and small right pleural effusion. Postobstructive pneumonia from right hilar mass may be present. Consider CT chest for followup. Few Concepcion lines at the left lung base, question interstitial edema or fluid overload. 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 Chest/Abdomen CTA 06/16/20 10:44 IMPRESSION: 1. Enlarged left lobe of the thyroid gland which extends substernally. 2. Moderate to large right-sided pleural effusions some a which is loculated superiorly. 3. Right lower lobe atelectasis or pneumonia. 4. Cardiomegaly. 5. No pulmonary emboli. Thyroid Ultrasound 06/17/20 00:00 IMPRESSION: Nodule 1 right lobe: Follow-up at 1, 3, 5 years Nodule 1 left lobe: No follow-up necessary Nodule 2 left lobe: FNA recommended. Chest X-Ray 06/18/20 07:00 IMPRESSION: Persistent mild vascular congestion. Stable right pleural effusion. Chest X-Ray 06/20/20 00:00 IMPRESSION: Persistent small right pleural effusion with right basilar consolidation, unchanged from 06/18/2020. Old CABG with stable cardiomegaly Chest X-Ray 06/23/20 06:00 IMPRESSION: Persistent small right pleural effusion improved from prior exam. Probable underlying atelectasis or pneumonia. Stable cardiomegaly. Chest X-Ray 06/26/20 07:45 IMPRESSION: Stable small right, trace left pleural effusion Persistent right basilar consolidation atelectasis versus pneumonia IMPRESSION/RECOMMENDATION: 1. Atrial flutter/fibrillation with rapid ventricular response. The heart rate is better controlled with Lopressor at current doses and addition of digoxin IV. We will continue the patient on digoxin daily. We will recheck the patient's labs including thyroid function tests in the a.m. Continue Coumadin 2. Right lower lobe pneumonia with loculated right lower lobe effusion: Agree with antibiotics. Chest x-ray shows that the patient's pneumonia and pleural effusions are almost resolved. Clinically the patient is does not have evidence of pneumonia. 3. Coronary artery disease:. History of coronary bypass graft surgery patient without any anginal symptoms. 4. Hypertension: Blood pressure appears to be well controlled at present. 5. Diabetes mellitus type 2: None insulin requiring. Continue antidiabetic medication and Accu-Cheks as per protocol. 6. Hyperlipidemia: Continue statins. 7. History of mitral valve replacement with porcine valve. Appears to be functioning normally. 8. Substernal thyroid. Does not appear to be any kind of causing any problems. Thyroid function tests are normal. 9. Right inguinal hernia: S/p surgery. Patient stable. Medications reviewed. Medications added. Medical regimen management plan discussed with attending provider on the case. Medical decision making is of high complexity. 40 minutes spent on this patient more than 50% time spent direct patient care. Will follow.
[2020-06-27] MEDS ORDERED: BENZOCAINE/MENTHOL SORE THROAT LOZENGE BUCCAL PRN (21:17)
[2020-06-27] MEDS ORDERED: WARFARIN SODIUM 2.5 MG TABLET PO SCH (22:00)
[2020-06-28 07:08] LABS: INTERNATIONAL RATION (INR) 1.75; PROTHROMBIN TIME 20.6 SEC (11.4-15.4)
[2020-06-28 07:30] LABS: ALKALINE PHOSPHATASE 66 U/L (38-126); ANION GAP 7 (5-19); ASPARTATE AMINO TRANSFERASE 36 U/L (17-59); BILIRUBIN,DIRECT 0.1 mg/dL (0.0-0.4); BILIRUBIN,TOTAL 0.9 mg/dL (0.2-1.3); BLOOD UREA NITROGEN 21 mg/dL (7-20); CALCIUM 8.7 mg/dL (8.4-10.2); CARBON DIOXIDE 28 mmol/L (22-30); CHLORIDE 105 mmol/L (98-107); DIGOXIN 1.01 ng/mL (0.8-2.0); GLUCOSE 83 mg/dL (75-110); POTASSIUM 4.3 mmol/L (3.6-5.0); TOTAL PROTEIN 5.9 g/dL (6.3-8.2)
[2020-06-28 07:31] LABS: FREE T3 4.08 pg/mL (2.77-5.27); FREE T4 (FREE THYROXINE) 1.31 ng/dL (0.78-2.19)
[2020-06-28 07:44] LABS: THYROID STIMULATING HORMONE 4.31 uIU/mL (0.47-4.68)
[2020-06-28] MEDS ORDERED: METOPROLOL TARTRATE PF/INJ 5 MG/5 ML SDV IV ONE (08:00)
[2020-06-28] MEDS: INSULIN REG, HUMAN 100 UNIT/ML 3 ML VIAL (PYX) SUBCUT SCH ×2 (08:00→11:55)
[2020-06-28] MEDS: MULTIVITAMIN TABLET PO SCH (09:24)
[2020-06-28] MEDS: FAMOTIDINE 20 MG TABLET PO SCH (09:25)
[2020-06-28] MEDS: TAMSULOSIN HCL 0.4 MG CAP.SR.24H PO SCH (09:25)
[2020-06-28] MEDS: FUROSEMIDE 20 MG TABLET PO SCH (09:25)
[2020-06-28] MEDS: LISINOPRIL 10 MG TABLET PO SCH (09:25)
[2020-06-28] MEDS: GLIPIZIDE XL 5 MG TAB.ER.24 PO SCH (09:26)
[2020-06-28] MEDS: ISOSORBIDE MONONITRATE 60 MG TAB.ER.24H PO SCH (09:26)
[2020-06-28] MEDS: METOPROLOL TARTRATE 100 MG TABLET PO SCH (09:26)
[2020-06-28] MEDS ORDERED: DIGOXIN 0.125 MG TABLET PO SCH (10:00)
--- NOTE | 2020-06-28 14:29 | PDOC DISCHARGE SUMMARY ---
Impression - Admit/DC Date/PCP Admission Date/Primary Care Provider: 06/16/20 14:21 OZ DAVIDSON PA-C Discharge Date: 06/28/20 - Discharge Diagnosis (1) Anticoagulated on Coumadin Is this a current diagnosis for this admission?: Yes (2) Atrial flutter with rapid ventricular response Is this a current diagnosis for this admission?: Yes (3) Diabetes Is this a current diagnosis for this admission?: Yes (4) HTN (hypertension) Is this a current diagnosis for this admission?: Yes (5) Irreducible right inguinal hernia Is this a current diagnosis for this admission?: Yes (6) Loculated pleural effusion Is this a current diagnosis for this admission?: Yes (7) Mitral valve replaced Is this a current diagnosis for this admission?: Yes (8) Rhinophyma Is this a current diagnosis for this admission?: Yes (9) Right lower lobe pneumonia Is this a current diagnosis for this admission?: Yes (10) Status post aorto-coronary artery bypass graft Is this a current diagnosis for this admission?: Yes (11) Thyroid mass Is this a current diagnosis for this admission?: Yes - Assessment Summary: Atrial flutter with rapid ventricular responseimproved, stable -admitted for A. fib with RVR. -Cardiology consult: Patient follows with Dr. Morgan outpatient -Cardizem drip and also given loading dose of digoxin which did not have significant effect -serial troponins. -INR initially 3.74 to held Coumadin temporarily -metoprolol 100 mg twice daily, cardiology added digoxin 06/26 EKG showed atrial flutter Dr. Morgan stated no need for cardioversion or other procedures at this time Now controlled Right lower lobe pneumoniaresolved 06/16/2020-patient has right lower lobe pneumonia. Blood cultures requested patient start on IV Rocephin and Zithromax. Patient may need right-sided thoracentesis diagnostic thoracentesis. -Antibiotics completed with ceftriaxone/azithromycin Resolved Loculated pleural effusionresolved/resolving CT chest showed moderate sized right-sided loculated pleural effusion Serial chest x-rays showed effusion notably reduced in size down to a rather small pleural effusion Mitral valve replaced Porcine valve Trend INR Continue Coumadin Goal INR 2-3, no need to bridge HTN (hypertension) Home medications continued T2DM Accu-Chek, sliding scale insulin, glipizide Massively enlarged thyroid Seen on chest CT TSH elevated at 5.19, T4 and T3 normal at 1.32 and 3.56 respectively Thyroid ultrasound showed multiple nodules, one nodule on lymph node with recommended FNA per radiology IR FNA needs to be done outpatient, patient and daughter made aware of this, PCP can arrange this; will need to stop anticoagulation and this will need to be coordinated with cardiology outpatient as well - Additional Information Resuscitation Status: Full Code Discharge Diet: As Tolerated, Diabetic Discharge Activity: Activity As Tolerated, Balance Activity w/Rest Referrals: OZ DAVIDSON PA-C [Primary Care Provider] - 07/10/20 1:30 pm BRIELLE CLARK MD [ACTIVE STAFF] - 07/06/20 12:30 pm Prescriptions: Digoxin [Lanoxin 0.125 mg Tablet] 0.125 mg PO DAILY #30 tablet Metoprolol Tartrate [Lopressor 100 mg Tablet] 100 mg PO Q12 #60 tablet Home Medications: Lisinopril/Hydrochlorothiazide [Lisinopril-Hctz 20-12.5 mg Tab] 1 each PO DAILY 07/06/14 Glipizide [Glipizide Xl] 10 mg PO DAILY 06/16/20 Isosorbide Mononitrate [Imdur 60 mg Tablet.er] 60 mg PO DAILY 06/16/20 Multivitamin [Tab-A-Peter] 1 each PO DAILY 06/16/20 Nitroglycerin [Nitrostat 0.4 mg (1/150 Gr) Tabs 25/Bottle] 1 tab SL Q5MP PRN 06/16/20 Pravastatin Sodium [Pravachol] 20 mg PO DAILY 06/16/20 Tamsulosin HCl [Flomax 0.4 mg Cap.sr] 0.4 mg PO DAILY 06/16/20 Vit C/Vit E AC/Lut/Copper/Zinc [Preservision Lutein Softgel] 1 each PO DAILY 06/16/20 Digoxin [Lanoxin 0.125 mg Tablet] 0.125 mg PO DAILY #30 tablet 06/28/20 Metoprolol Tartrate [Lopressor 100 mg Tablet] 100 mg PO Q12 #60 tablet 06/28/20 Warfarin Sodium [Jantoven 2 mg Tablet] 2.5 mg PO QPM #0 06/28/20 History of Present Illiness History of Present Illness: Per Previous Physician: "VALERIANO HILLIARD is a 80 year old male with history of atrial fibrillation, mitral valve replacement with pig valve on warfarin, triple-vessel bypass, diabetes, hypertension, hypercholesteremia came to the emergency with complaining of increasing shortness of breath. Also to the cough with a greenish sputum. He denies any fevers. Denies any nausea vomiting diarrhea or abdominal pain. Work-up in the ER shows A. fib with RVR was started on Cardizem drip then was given digoxin. CT of the chest indicate you have right-sided pleural effusion moderate-sized pleural effusion with parapneumonic effusion. Start IV antibiotic therapy. Medical consult was called for admission. INR in the ER is 3.74." Physical Exam Vital Signs: Temp Pulse Resp BP Pulse Ox 98.2 F 64 18 119/76 99 06/28/20 11:33 06/28/20 11:33 06/28/20 11:33 06/28/20 11:33 06/28/20 11:33 Intake & Output 06/27/20 06/28/20 06/29/20 06:59 06:59 06:59 Intake Total 1350 841 Output Total 1075 1400 Balance 275 -559 Weight 98.1 kg 96.6 kg Exam: General appearance: PRESENT: no acute distress, well-developed, well-nourished, states he feels well and would like to go home Head exam: PRESENT: atraumatic, normocephalic Eye exam: PRESENT: conjunctiva pink. ABSENT: scleral icterus Mouth exam: PRESENT: moist Respiratory exam: PRESENT: clear to auscultation barby. ABSENT: rales, rhonchi, wheezes Cardiovascular exam: PRESENT: Regular rate, irregularly irregular rhythm ABSENT: diastolic murmur, rubs, systolic murmur GI/Abdominal exam: PRESENT: normal bowel sounds, soft. ABSENT: distended, guarding, mass, organolmegaly, rebound, tenderness Neurological exam: PRESENT: alert, awake, oriented to person, oriented to place, oriented to time, oriented to situation Psychiatric exam: PRESENT: appropriate affect, normal mood Skin exam: PRESENT: dry, intact, warm Results Laboratory Results: WBC 6.9 10^3/uL (4.0-10.5) 06/27/20 18:46 RBC 4.30 10^6/uL (4.35-5.55) L 06/27/20 18:46 Hgb 12.7 g/dL (13.5-17.0) L 06/27/20 18:46 Hct 38.2 % (37.9-51.0) 06/27/20 18:46 MCV 89 fl (80-97) 06/27/20 18:46 MCH 29.6 pg (27.0-33.4) 06/27/20 18:46 MCHC 33.3 g/dL (32.0-36.0) 06/27/20 18:46 RDW 13.4 % (11.5-14.0) 06/27/20 18:46 Plt Count 146 10^3/uL (150-450) L 06/27/20 18:46 Lymph % (Auto) 11.9 % (13-45) L 06/25/20 05:13 [place] % (Auto) 11.2 % (3-13) 06/25/20 05:13 Eos % (Auto) 3.9 % (0-6) 06/25/20 05:13 Baso % (Auto) 0.4 % (0-2) 06/25/20 05:13 Absolute Neuts (auto) 6.2 10^3/uL (1.7-8.2) 06/25/20 05:13 Absolute Lymphs (auto) 1.0 10^3/uL (0.5-4.7) 06/25/20 05:13 Absolute Monos (auto) 1.0 10^3/uL (0.1-1.4) 06/25/20 05:13 Absolute Eos (auto) 0.3 10^3/uL (0.0-0.6) 06/25/20 05:13 Absolute Basos (auto) 0.0 10^3/uL (0.0-0.2) 06/25/20 05:13 Seg Neutrophils % 72.6 % (42-78) 06/25/20 05:13 PT 20.6 SEC (11.4-15.4) H 06/28/20 06:25 INR 1.75 06/28/20 06:25 Sodium 140.2 mmol/L (137-145) 06/28/20 06:25 Potassium 4.3 mmol/L (3.6-5.0) 06/28/20 06:25 Chloride 105 mmol/L (98-107) 06/28/20 06:25 Carbon Dioxide 28 mmol/L (22-30) 06/28/20 06:25 Anion Gap 7 (5-19) 06/28/20 06:25 BUN 21 mg/dL (7-20) H 06/28/20 06:25 Creatinine 1.08 mg/dL (0.52-1.25) 06/28/20 06:25 Est GFR ( Amer) > 60 (>60) 06/28/20 06:25 Est GFR (MDRD) Non-Af > 60 (>60) 06/28/20 06:25 Glucose 83 mg/dL (75-110) 06/28/20 06:25 POC Glucose 125 mg/dL (70-110) H 06/28/20 11:34 Hemoglobin A1c % 5.6 % (4.7-6.0) 06/17/20 04:55 Calcium 8.7 mg/dL (8.4-10.2) 06/28/20 06:25 Magnesium 2.0 mg/dL (1.6-2.3) 06/28/20 06:25 Total Bilirubin 0.9 mg/dL (0.2-1.3) 06/28/20 06:25 Direct Bilirubin 0.1 mg/dL (0.0-0.4) 06/28/20 06:25 Neonat Total Bilirubin Not Reportable 06/28/20 06:25 Neonat Direct Bilirubin Not Reportable 06/28/20 06:25 Neonat Indirect Bili Not Reportable 06/28/20 06:25 AST 36 U/L (17-59) 06/28/20 06:25 ALT 15 U/L (<50) 06/28/20 06:25 Alkaline Phosphatase 66 U/L (38-126) 06/28/20 06:25 Creatine Kinase 49 U/L (55-170) L 06/16/20 09:20 CK-MB (CK-2) 1.19 ng/mL (<4.55) 06/16/20 09:20 Troponin I 0.076 ng/mL 06/17/20 02:15 NT-Pro-B Natriuret Pep 8040 pg/mL (<450) H 06/17/20 04:55 Total Protein 5.9 g/dL (6.3-8.2) L 06/28/20 06:25 Albumin 3.0 g/dL (3.5-5.0) L 06/28/20 06:25 Triglycerides 73 mg/dL (<150) 06/17/20 04:55 Cholesterol 110.97 mg/dL (0-200) 06/17/20 04:55 LDL Cholesterol Direct 57 mg/dL (<100) 06/17/20 04:55 VLDL Cholesterol 15.0 mg/dL (10-31) 06/17/20 04:55 HDL Cholesterol 40 mg/dL (>40) 06/17/20 04:55 Lipase 75.6 U/L (23-300) 06/17/20 04:55 TSH 4.31 uIU/mL (0.47-4.68) 06/28/20 06:25 Free T4 1.31 ng/dL (0.78-2.19) 06/28/20 06:25 Free T3 pg/mL 4.08 pg/mL (2.77-5.27) 06/28/20 06:25 Urine Color YELLOW 06/27/20 03:53 Urine Appearance CLEAR 06/27/20 03:53 Urine pH 7.0 (5.0-9.0) 06/27/20 03:53 Ur Specific [place] 1.017 06/27/20 03:53 Urine Protein 30 mg/dL (NEGATIVE) H 06/27/20 03:53 Urine Glucose (UA) NEGATIVE mg/dL (NEGATIVE) 06/27/20 03:53 Urine Ketones NEGATIVE mg/dL (NEGATIVE) 06/27/20 03:53 Urine Blood NEGATIVE (NEGATIVE) 06/27/20 03:53 Urine Nitrite NEGATIVE (NEGATIVE) 06/27/20 03:53 Urine Bilirubin NEGATIVE (NEGATIVE) 06/27/20 03:53 Urine Urobilinogen 2.0 mg/dL (<2.0) H 06/27/20 03:53 Ur Leukocyte Esterase NEGATIVE (NEGATIVE) 06/27/20 03:53 Urine WBC (Auto) 1 /HPF 06/27/20 03:53 Urine RBC (Auto) 1 /HPF 06/26/20 05:50 Urine Mucus (Auto) RARE /LPF 06/27/20 03:53 Urine Ascorbic Acid NEGATIVE (NEGATIVE) 06/27/20 03:53 Digoxin 1.01 ng/mL (0.8-2.0) 06/28/20 06:25 SARS-CoV-2 (PCR) NEGATIVE (NEGATIVE) 06/19/20 15:52 Blood Type O POSITIVE 06/19/20 14:34 06/16/20 06/16/20 06/16/20 09:20 12:07 14:50 CK-MB (CK-2) 1.19 Troponin I 0.015 0.015 0.019 NT-Pro-B Natriuret Pep 06/16/20 06/17/20 06/17/20 19:31 02:15 04:55 CK-MB (CK-2) Troponin I 0.041 0.076 NT-Pro-B Natriuret Pep 8040 H Impressions: Chest X-Ray 06/16/20 09:15 IMPRESSION: Volume loss and consolidation right lower lobe with fullness of the right hilum and small right pleural effusion. Postobstructive pneumonia from right hilar mass may be present. Consider CT chest for followup. Few Concepcion lines at the left lung base, question interstitial edema or fluid overload. 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 Chest/Abdomen CTA 06/16/20 10:44 IMPRESSION: 1. Enlarged left lobe of the thyroid gland which extends substernally. 2. Moderate to large right-sided pleural effusions some a which is loculated cui periorly. 3. Right lower lobe atelectasis or pneumonia. 4. Cardiomegaly. 5. No pulmonary emboli. Thyroid Ultrasound 06/17/20 00:00 IMPRESSION: Nodule 1 right lobe: Follow-up at 1, 3, 5 years Nodule 1 left lobe: No follow-up necessary Nodule 2 left lobe: FNA recommended. Chest X-Ray 06/18/20 07:00 IMPRESSION: Persistent mild vascular congestion. Stable right pleural effusion. Chest X-Ray 06/20/20 00:00 IMPRESSION: Persistent small right pleural effusion with right basilar consolidation, unchanged from 06/18/2020. Old CABG with stable cardiomegaly Chest X-Ray 06/23/20 06:00 IMPRESSION: Persistent small right pleural effusion improved from prior exam. Probable underlying atelectasis or pneumonia. Stable cardiomegaly. Chest X-Ray 06/26/20 07:45 IMPRESSION: Stable small right, trace left pleural effusion Persistent right basilar consolidation atelectasis versus pneumonia Plan Plan of Treatment: Follow-up with PCP Follow-up with cardiology Ask PCP to arrange outpatient thyroid biopsy. Anticoagulation will need to be coordinated with cardiology. Time Spent: Greater than 30 Minutes Stroke Is this a Stroke Patient?: No Acute Heart Failure Is this a Heart Failure Patient?: Yes Documentation of LVEF assessment?: Yes LVEF: LVEF Greater Than 40% Anticoagulant Therapy: Yes Discharged on Evidence-Based Beta Blockers: Yes Reason(s) not discharged on ARNI: ACEI use within the prior 36 hours Discharged on ARB?: N/A-Discharged on ARNI Discharged on ACEI?: Yes For LVEF <35%, discharged on Aldosterone Antagonist?: N/A (LVEF > or = 35%) Follow-up Appointment scheduled within 7 days?: Yes
[2020-06-28 14:31] VITALS: BP 113/74
--- NOTE | 2020-06-28 15:10 | Progress Note ---
Provider Note Provider Note: CARDIOLOGY PROGRESS NOTE by Dr. Staci Rust on 06/28/2020 SUBJECTIVE: The patient's digoxin level is therapeutic. The patient was given IV fluids with Ringer lactate 500 mL fluid bolus. Earlier the patient also was given 5 mg of Lopressor intravenously. With all these the patient's heart rate is now under good control. The heart rate did not increase with patient ambulating. As the patient is ready for discharge. He denies any cough or shortness of breath or PND orthopnea. There is no leg edema. There is no anginal symptoms. The patient appears is in atrial fibrillation with controlled ventricular response with no significant evidence of high-grade AV block. There is no pauses. There is no ventricular arrhythmias seen on the monitor. The patient's thyroid function test is normal. His INR is 1.75. We will recheck the patient's PT/INR as an outpatient and adjust Coumadin accordingly. There is no bleeding on Coumadin. There is no TIA CVA symptoms. PHYSICAL EXAMINATION: The patient is well-built and well-nourished in no acute distress. Selected Entries 06/28/20 11:33 Temperature 98.2 F Temperature Oral Source Pulse Rate 64 Respiratory 18 Rate Blood Pressure 119/76 Blood Pressure 90 Mean BP Location Left Arm BP Position Sitting O2 Sat by Pulse 99 Oximetry Oxygen Delivery Room Air Method HEAD: Is atraumatic normocephalic. EYES: Pupils are equal round regular reactive to light and accommodation. Extraocular movements are normal. There is no conjunctival pallor. There is no scleral icterus. EARS: Tympanic membranes are intact. External auditory canals are clear. NOSE: There is no deviated nasal septum. There is no inflammation nasal mucous membrane. MOUTH: There is no redness of the oropharynx. There is no exudates. There is no bleeding from the gums. THROAT: There is no redness of the oropharynx. There is no exudates in the throat. SKIN: There is no petechia or ecchymosis. There is no skin lesions or skin rashes. NECK: Is supple. There is no JVD. Carotids are equal there is no bruit. There is no lymphadenopathy. There is no goiter.. There is no accessory muscle respiration use. Trachea central. LUNGS: The lungs are clear without any rhonchi rales or wheezing. HEART: S1-S2 is heard. S1 is of variable intensity. There is no S3 gallop. There is no S4 gallop.There is systolic murmur left sternal border and the apex there is no rub. ABDOMEN: Is soft. Nontender. There is no hepatosplenomegaly. Bowel sounds are well heard. There is a right inguinal dressing is dry and clean.. EXTREMITIES: Femorals are well felt. There is no femoral bruits. Leg pulses well felt. There is no pedal edema. There is no DVT or cellulitis. There is no calf tenderness. There is no cyanosis or clubbing. [employer] MEDIA: The patient is conscious awake alert oriented x3 with no focal deficits. PSYCHIATRIC: The patient judgment insight are intact his affect is normal. Labs- All tests 24 hr 06/28/20 06/28/20 06/28/20 06:25 06:25 06:25 PT 20.6 H INR 1.75 Sodium 140.2 Potassium 4.3 Chloride 105 Carbon Dioxide 28 Anion Gap 7 BUN 21 H Creatinine 1.08 Est GFR ( Amer) > 60 Est GFR (MDRD) Non-Af > 60 Glucose 83 POC Glucose Calcium 8.7 Magnesium 2.0 Total Bilirubin 0.9 Direct Bilirubin 0.1 Neonat Total Bilirubin Not Reportable Neonat Direct Bilirubin Not Reportable Neonat Indirect Bili Not Reportable AST 36 ALT 15 Alkaline Phosphatase 66 Total Protein 5.9 L Albumin 3.0 L TSH 4.31 Free T4 1.31 Free T3 pg/mL 4.08 Digoxin 1.01 06/28/20 06/28/20 07:31 11:34 PT INR Sodium Potassium Chloride Carbon Dioxide Anion Gap BUN Creatinine Est GFR ( Amer) Est GFR (MDRD) Non-Af Glucose POC Glucose 94 125 H Calcium Magnesium Total Bilirubin Direct Bilirubin Neonat Total Bilirubin Neonat Direct Bilirubin Neonat Indirect Bili AST ALT Alkaline Phosphatase Total Protein Albumin TSH Free T4 Free T3 pg/mL Digoxin Chest X-Ray 06/16/20 09:15 IMPRESSION: Volume loss and consolidation right lower lobe with fullness of the right hilum and small right pleural effusion. Postobstructive pneumonia from right hilar mass may be present. Consider CT chest for followup. Few Concepcion lines at the left lung base, question interstitial edema or fluid overload. 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 Chest/Abdomen CTA 06/16/20 10:44 IMPRESSION: 1. Enlarged left lobe of the thyroid gland which extends substernally. 2. Moderate to large right-sided pleural effusions some a which is loculated superiorly. 3. Right lower lobe atelectasis or pneumonia. 4. Cardiomegaly. 5. No pulmonary emboli. Thyroid Ultrasound 06/17/20 00:00 IMPRESSION: Nodule 1 right lobe: Follow-up at 1, 3, 5 years Nodule 1 left lobe: No follow-up necessary Nodule 2 left lobe: FNA recommended. Chest X-Ray 06/18/20 07:00 IMPRESSION: Persistent mild vascular congestion. Stable right pleural effusion. Chest X-Ray 06/20/20 00:00 IMPRESSION: Persistent small right pleural effusion with right basilar consolidation, unchanged from 06/18/2020. Old CABG with stable cardiomegaly Chest X-Ray 06/23/20 06:00 IMPRESSION: Persistent small right pleural effusion improved from prior exam. Probable underlying atelectasis or pneumonia. Stable cardiomegaly. Chest X-Ray 06/26/20 07:45 IMPRESSION: Stable small right, trace left pleural effusion Persistent right basilar consolidation atelectasis versus pneumonia IMPRESSION/RECOMMENDATION: 1. Atrial flutter/fibrillation with rapid ventricular response. The patient's heart rate is now well controlled. He did not increase with ambulation. Would recommend continue the patient's Lopressor and digoxin at the current dose and also continue Coumadin. We will recheck the PT/INR this coming Friday as an outpatient. We will see the patient next week in the office. This was discussed with the patient's daughter. 2. Right lower lobe pneumonia with loculated right lower lobe effusion: Agree with antibiotics. Chest x-ray shows that the patient's pneumonia and pleural effusions are almost resolved. Clinically the patient is does not have evidence of pneumonia. 3. Coronary artery disease:. History of coronary bypass graft surgery patient without any anginal symptoms. 4. Hypertension: Blood pressure appears to be well controlled at present. 5. Diabetes mellitus type 2: None insulin requiring. Continue antidiabetic medication and Accu-Cheks as per protocol. 6. Hyperlipidemia: Continue statins. 7. History of mitral valve replacement with porcine valve. Appears to be functioning normally. 8. Substernal thyroid. Does not appear to be any kind of causing any problems. Thyroid function tests are normal. 9. Right inguinal hernia: S/p surgery. Patient stable. Medications reviewed. Medical management and management plan discussed with the attending provider on the case. Medical decision making is of moderate complexity since the patient is stable enough to be discharged. Discussed with attending provider on the case. Discussed with the patient and patient's daughter. Medical decision making is of moderate complexity. We will follow the patient in the office. Will sign off as the patient is being discharged.
== END 2020-06-28 15:07 | disposition home or self-care (01) | DRG 987 ==
LOC: ER 08:52 → EH 14:21 → 3S 16:16
PROVIDERS: ADMIT Internal Medicine; ATTEND Internal Medicine
PROC: 30233L1 Transfusion of Nonautologous Fresh Plasma into Peripheral Vein, Percutaneous Approach (ICD-10-PCS; 2020-06-19)
PROC: 0YU50JZ Supplement Right Inguinal Region with Synthetic Substitute, Open Approach (ICD-10-PCS; principal; 2020-06-23 12:15)
PROC: B24BZZ4 Ultrasonography of Heart with Aorta, Transesophageal (ICD-10-PCS; 2020-06-26)
DX: I48.0 Paroxysmal atrial fibrillation (principal); J18.9 Pneumonia, unspecified organism; K40.30 Unilateral inguinal hernia, with obstruction, without gangrene, not specified as recurrent; J90 Pleural effusion, not elsewhere classified; I48.92 Unspecified atrial flutter; E11.9 Type 2 diabetes mellitus without complications; I10 Essential (primary) hypertension; L71.1 Rhinophyma; E04.2 Nontoxic multinodular goiter; E78.00 Pure hypercholesterolemia, unspecified; I25.10 Atherosclerotic heart disease of native coronary artery without angina pectoris; E78.5 Hyperlipidemia, unspecified; K59.00 Constipation, unspecified; F41.9 Anxiety disorder, unspecified; Z87.891 Personal history of nicotine dependence; Z79.01 Long term (current) use of anticoagulants; Z95.2 Presence of prosthetic heart valve; Z95.1 Presence of aortocoronary bypass graft; Z79.899 Other long term (current) drug therapy; Z59.9 Problem related to housing and economic circumstances, unspecified; Z79.84 Long term (current) use of oral hypoglycemic drugs; Z79.82 Long term (current) use of aspirin
CPT/HCPCS: 36415; 36430; 71045; 71046; 71275; 76536; 80048; 80053; 80061; 80162; 81001; 82550; 82553; 82962; 830; 83036; 83690; 83735; 83880; 84439; 84443; 84481; 84484; 85025; 85027; 85610; 86900; 86901; 87040; 87070; 87635; 90471; 90686; 93005; 93010; 93306; 96365; 96375; 99285; C1781; C9803; G0008; J0456; J0690; J0696; J1160; J1815; J1940; J2060; J2250; J2704; J3010; J3490; J7040; J7060; P9017

== ENCOUNTER → 2020-07-02 | Outpatient (CLI) | payer MEDICARE ==
[2020-07-02 14:48] LABS: PROTHROMBIN TIME 23.6 SEC (11.4-15.4)
== END ==
LOC: LAB 13:22
PROVIDERS: ATTEND Specialist
DX: I48.92 Unspecified atrial flutter (principal); Z79.01 Long term (current) use of anticoagulants
CPT/HCPCS: 36415; 85610

== ENCOUNTER → 2020-07-10 | Outpatient (CLI) | payer MEDICARE | LOC: OD 08:22 | PROVIDERS: ATTEND Specialist | DX: I42.9 Cardiomyopathy, unspecified (principal); F06.4 Anxiety disorder due to known physiological condition; I25.10 Atherosclerotic heart disease of native coronary artery without angina pectoris; I45.10 Unspecified right bundle-branch block; I49.3 Ventricular premature depolarization; Z95.2 Presence of prosthetic heart valve; Z95.1 Presence of aortocoronary bypass graft; E08.22 Diabetes mellitus due to underlying condition with diabetic chronic kidney disease; N18.30 Chronic kidney disease, stage 3 unspecified; I34.0 Nonrheumatic mitral (valve) insufficiency; Z01.810 Encounter for preprocedural cardiovascular examination; R01.1 Cardiac murmur, unspecified; I48.91 Unspecified atrial fibrillation; E78.49 Other hyperlipidemia; Z79.899 Other long term (current) drug therapy; E78.5 Hyperlipidemia, unspecified | CPT/HCPCS: 36415; 80162 ==

== ENCOUNTER → 2020-08-03 | Outpatient (CLI) | payer MEDICARE ==
[2020-08-03 13:17] LABS: INTERNATIONAL RATION (INR) 1.86; PROTHROMBIN TIME 21.5 SEC (11.4-15.4)
== END ==
LOC: OD 12:47
PROVIDERS: ATTEND Specialist
DX: I48.92 Unspecified atrial flutter (principal); Z79.01 Long term (current) use of anticoagulants
CPT/HCPCS: 36415; 85610

== ENCOUNTER → 2020-08-17 | Outpatient (CLI) | payer MEDICARE ==
[2020-08-17 15:25] LABS: INTERNATIONAL RATION (INR) 1.93; PROTHROMBIN TIME 22.1 SEC (11.4-15.4)
== END ==
LOC: OD 13:04
PROVIDERS: ATTEND Specialist
DX: I48.92 Unspecified atrial flutter (principal); Z79.01 Long term (current) use of anticoagulants
CPT/HCPCS: 36415; 85610

== ENCOUNTER → 2020-08-31 | Outpatient (CLI) | payer MEDICARE ==
[2020-08-31 13:39] LABS: INTERNATIONAL RATION (INR) 2.36; PROTHROMBIN TIME 25.8 SEC (11.4-15.4)
== END ==
LOC: OD 13:08
PROVIDERS: ATTEND Specialist
DX: I48.92 Unspecified atrial flutter (principal); Z79.01 Long term (current) use of anticoagulants
CPT/HCPCS: 36415; 85610